=== PATIENT | female | born 1945 | race Two or more races ===

== ENCOUNTER 2020-05-24 12:55 | Outpatient (REF) | payer MEDICARE, SELFPAY | END 2020-05-24 12:56 | disposition home or self-care (01) | LOC: HO.LAB 12:55 | PROVIDERS: PCP Internal Medicine; Visit Provider Internal Medicine | DX: Z11.59 Encounter for screening for other viral diseases (principal) | CPT/HCPCS: 36415; 87635 ==

== ENCOUNTER 2020-06-14 15:06 | Outpatient (REF) | payer MEDICARE, SELFPAY | END 2020-06-14 15:07 | disposition home or self-care (01) | LOC: HO.LAB 15:06 | PROVIDERS: PCP Internal Medicine; Visit Provider Internal Medicine | DX: Z20.828 Contact with and (suspected) exposure to other viral communicable diseases (principal) | CPT/HCPCS: 87635 ==

== ENCOUNTER 2020-09-18 10:14 | Outpatient (REF) | payer MEDICARE, SELFPAY | END 2020-09-18 10:15 | disposition home or self-care (01) | LOC: HO.LAB 10:14 | PROVIDERS: PCP Internal Medicine; Visit Provider Internal Medicine | DX: Z20.822 Contact with and (suspected) exposure to COVID-19 (principal) | CPT/HCPCS: 36415; C9803; U0003 ==

== ENCOUNTER 2020-12-05 12:28 | Outpatient (REF) | payer MEDICARE, SELFPAY | END 2020-12-05 12:29 | disposition home or self-care (01) | LOC: HO.LAB 12:28 | PROVIDERS: Visit Provider Internal Medicine | DX: Z20.822 Contact with and (suspected) exposure to COVID-19 (principal) | CPT/HCPCS: C9803; U0003; U0005 ==

== ENCOUNTER 2021-02-04 10:49 | Outpatient (REF) | payer MEDICARE, SELFPAY | END 2021-02-04 10:50 | disposition home or self-care (01) | LOC: HO.LAB 10:49 | PROVIDERS: PCP Internal Medicine; Visit Provider Internal Medicine | DX: Z20.822 Contact with and (suspected) exposure to COVID-19 (principal) | CPT/HCPCS: C9803; U0003; U0005 ==

== ENCOUNTER 2021-11-28 16:41 | Emergency (ER) | payer OTHER, SELFPAY ==
--- NOTE | ~2021-11-28 | CT_ITS ---
EXAMINATION: CT ABDOMEN AND PELVIS WITHOUT CONTRAST CLINICAL INFORMATION: left sided AP . COMPARISON: 09/28/2019. TECHNIQUE: Multidetector volumetric imaging was performed from the superior aspect of the liver through the pubic symphysis without contrast per request. Sagittal and coronal reformatted images were obtained on the technologist workstation. This CT examination was performed using dose optimization techniques as appropriate, variously including the following: *Automated exposure control *Adjustment of mA and/or kV according to patient size (this includes techniques or standardized protocols for targeted exams where dose is matched to indication/reason for exam; i.e. extremities or head) *Use of iterative reconstruction technique DLP: 537 mGy-cm. FINDINGS: LUNG BASES: The visualized lung bases are unremarkable. LIVER, GALLBLADDER, BILIARY TREE: Mild fatty infiltration of the liver with the region of focal fatty sparing in segment 4 again noted. No focal hepatic lesion or biliary ductal dilatation is present. The gallbladder surgically absent. PANCREAS: Unremarkable. SPLEEN: Unremarkable. ADRENAL GLANDS: Unremarkable. KIDNEYS AND URETERS: The kidneys are normal in size, shape, and attenuation. No hydronephrosis, hydroureter, or calculi seen. No perinephric stranding. BLADDER: Decompressed GASTROINTESTINAL TRACT: The small and large bowel are unremarkable. The appendix is unremarkable. ABDOMINAL WALL: No significant hernia is appreciated. LYMPHOVASCULAR STRUCTURES: Vascular calcification within the aorta iliac system.. PELVIC VISCERA: Unremarkable. OSSEUS STRUCTURES: Unremarkable. CT/CT abdomen pelvis wo con IMPRESSION: No acute intra-abdominal process seen. Mild chronic appearing changes similar to the prior study..
[2021-11-28 16:59] VITALS: BP 139/71; PULSE 63; RESP 16; TEMP 35.9; O2SAT 94; BMI 27.4
--- NOTE | 2021-11-28 17:22 | ECG_ITS ---
Test Reason : AP/CP Blood Pressure : / mmHG Vent. Rate : 065 BPM Atrial Rate : 065 BPM P-R Int : 184 ms QRS Dur : 060 ms QT Int : 406 ms P-R-T Axes : 007 -15 041 degrees QTc Int : 422 ms Normal sinus rhythm Minimal voltage criteria for LVH, may be normal variant ( R in aVL ) Borderline ECG When compared with ECG of 03-OCT-2019 14:02, No significant change was found Referred By: Sara Kraft Electronically Signed By:LENCHO BERNARDO MD
--- NOTE | 2021-11-28 17:33 | ED.GENADULT ---
HPI - General Adult General Chief complaint: General Medical Stated complaint: cp/flank pain Time Seen by Provider: 11/28/21 17:17 Source: patient and EMS Mode of arrival: EMS Limitations: no limitations History of Present Illness HPI narrative: 76 yo DM, HTN, HLD, hypothyroidism here with complaints of left-sided abdominal pain for the last 2 days with vomiting yesterday. Pain radiates to the left side of the abdomen and back. There is no associated diarrhea or constipation. The patient's last BM was yesterday and was normal reportedly. No urinary symptoms, fevers or chills. Patient tells me the pain radiates up into the upper back. She denies any chest pain, shortness of breath, cough. Related Data Allergies Allergy/AdvReac Type Severity Reaction Status Date / Time hydromorphone [From DILAUDID] Allergy Unknown UNK Unverified 05/10/20 15:35 levofloxacin [From LEVAQUIN] Allergy Unknown RASH Unverified 05/10/20 15:35 ondansetron [From ZOFRAN] Allergy Unknown HIVES Unverified 05/10/20 15:35 Penicillins [PENICILLINS] Allergy Unknown RASH Unverified 05/10/20 15:35 tramadol [TRAMADOL] Allergy Unknown UNK Unverified 05/10/20 15:35 codeine [CODEINE] AdvReac Unknown N/V Unverified 05/10/20 15:35 morphine [MORPHINE] AdvReac Unknown N/V Unverified 05/10/20 15:35 Codein Allergy Unknown Uncoded 09/24/12 00:00 MORPHINE Allergy Unknown CONFUSION/MENTAL Uncoded 09/24/12 00:00 STATUS CHANGE PCN Allergy Unknown SWELLING,RA Uncoded 09/24/12 00:00 Review of Systems Review of Systems: Yes all other systems are reviewed and are negative Constitutional: Constitutional: Reports no additional constitutional complaints, Denies body ache(s), Denies chills, Denies fever(s), Denies headache(s) and Denies weakness Eyes: Eyes: Reports no additional eye complaints and Denies change in vision ENT: Reports system reviewed and no additional complaints, except as documented, Denies dizziness, Denies headache(s), Denies nasal congestion, Denies nasal discharge and Denies neck pain Cardiovascular: Cardiovascular: Reports no additional cardiovascular complaints, Denies chest pain, Denies leg edema and Denies dyspnea Respiratory: Respiratory: Reports no additional respiratory complaints, Denies cough and Denies dyspnea Gastrointestinal: Gastrointestinal: Reports no additional gastrointestinal complaints, Reports abdominal pain, Denies diarrhea, Reports nausea and Reports vomiting Genitourinary: Genitourinary: Reports no additional female genitourinary complaints and Denies urinary incontinence Musculoskeletal: Musculoskeletal: Reports no additional musculoskeletal complaints, Reports back pain, Denies arthralgias, Denies joint swelling, Denies neck pain, Denies numbness and Denies tingling Integumentary/Breasts: Skin/Breast: Reports system reviewed and no additional complaints, except as docu and Denies rash Neurologic: Reports system reviewed and no additional complaints, except as documented, Denies dizziness, Denies headache(s), Denies numbness, Denies tingling and Denies weakness PMFSH Past Medical History Attestation statement: The following information was validated with the patient. Source: old records reviewed and nursing notes reviewed Medical History Diabetes Diverticulosis Erythrocytosis HTN (hypertension) Hyperlipidemia Hypothyroid Insomnia Social History Social History Advance Directives: No Advance Directives Information Provided: Yes Physical Exam ED Vital Signs: Vital Signs - 24 hr 11/28/21 16:59 11/28/21 18:34 Temperature 96.7 F L Pulse Rate 63 75 Respiratory Rate 16 14 Blood Pressure 139/71 214/88 H Pulse Oximetry 94 98 BMI result Body Mass Index 27.4 Const General: cooperative, healthy appearing, comfortable and no acute distress Orientation/consciousness: patient oriented x3 Limitations: no limitations [facility] Head: Yes normal to inspection Ears: hearing grossly normal bilaterally General nose exam: Normal external nose present Face and sinus: Yes normal facial exam Mouth: Normal oral and palatal mucosa present Teeth and gingiva: dentition normal Throat: Yes posterior oropharynx normal, Yes tonsils normal and Yes uvula midline Eyes General: appearance normal, both eyes and all related structures Pupils: Equal, round and reactive pupils present Neck Neck: Yes normal visual inspection, Yes full ROM, Yes no lymphadenopathy and Yes no meningeal signs Chest Chest palpation & inspection: normal inspection of the chest Resp Effort & Inspection: normal respiratory effort Auscultation: clear to auscultation bilaterally Cardio Rate: regular rate Rhythm: regular rhythm Peripheral pulses: Peripheral pulses 2+ throughout GI Inspection: Yes normal to inspection Palpation (GI): Soft to palpation and Tenderness to palpation present (GI) (LLQ/LUQ TTP) Auscultation: normal bowel sounds General: Yes no CVA tenderness Back/Spine/Pelvis Back: no CVA tenderness Thoracic/Lumbar Spine: thoracic and lumbar spine normal to inspection Skin General skin exam: no rashes or lesions noted Neuro General: patient oriented x3, no meningeal signs and Unable to assess gait Cranial nerves: Yes CN's II-XII intact bilaterally, Yes Equal, round and reactive pupils present, Yes Bilaterally intact EOM present, Yes Nystagmus not present, Yes Normal facial strength present and Yes Midline tongue present Cognition (Neuro): normal cognition Gait exam (Neuro): Unable to assess gait Motor exam (neuro): 5/5 motor strength present throughout Sensory Exam: Normal double simultaneous stimulation for sensation Extrem General: Yes normal to inspection Course Course Course Narrative: 76-year-old female here with reports of left-sided abdominal pain with radiation to the left flank associated vomiting for the last 2 days. On exam patient has tenderness the left upper quadrant left lower quadrant with TTP,. No rebound or guarding. Will check labs, UA, CT. 2014-patient refused CT scan with IV contrast. Will obtain without. 2099-CT scan shows no acute finding. Labs and UA are unremarkable. Patient appears well. She is tolerating p.o.. Her pain is well controlled. Discussed findings with the patient. ?viral gastroenteritis. Patient tells me 1 of her grandchildren had similar symptoms home. Will discharge home with supportive care. Reviewed worrisome signs and symptoms of when to return to the emergency department. Comfortable discharge home. Medical Decision Making MDM Narrative Medical decision making narrative: diverticulitis Medical Records Medical records reviewed: Yes I reviewed the patient's medical records. Lab Data Lab results reviewed: Yes I reviewed the patient's lab results. Result diagrams: 11/28/21 18:33 11/28/21 18:33 Labs: Lab Results 11/28/21 11/28/21 11/28/21 Range/Units 18:33 18:33 18:33 WBC 7.0 (4.8-10.8) X10*3/uL RBC 5.01 (4.20-5.50) X10*6/uL Hgb 15.0 (12.0-16.0) g/dl Hct 43.8 (37.0-47.0) % MCV 87.4 (80.0-98.0) fL MCH 29.9 (27.0-33.0) pg MCHC 34.2 (31.0-35.0) g/dl RDW 13.1 (11.0-16.0) % Plt Count 229 (160-400) X10*3/uL MPV 11.8 (9.4-12.3) fL Immature Gran % (Auto) 0.6 H (0.0-0.4) % Neut % (Auto) 49.2 (45-73) % Lymph % (Auto) 37.2 (20-40) % Miller % (Auto) 10.1 (2-11) % Eos % (Auto) 2.3 (0-4) % Baso % (Auto) 0.6 (0-2) % Lymph # (Auto) 2.6 (1.2-4.9) X10*3/uL Miller # (Auto) 0.7 (0.1-1.2) X10*3/uL Eos # (Auto) 0.2 (0.0-0.4) X10*3/uL Baso # (Auto) 0.0 (0.0-0.2) X10*3/uL Abs Immat Gran (auto) 0.04 H (0.00-0.03) X10*3/uL Absolute Neuts (auto) 3.5 (2.0-8.3) x10*3/uL Absolute Nucleated RBC 0.000 (0.0-0.012) X10*3/uL Nucleated RBC % (auto) 0.0 (0.0-0.2) /100WBC Sodium 139 (135-145) mmol/L Potassium 3.9 (3.3-5.1) mmol/L Chloride 103 (96-108) mmol/L Carbon Dioxide 25 (22-29) mmol/L Anion Gap 15 (12-20) BUN 22 H (9-16) mg/dL Creatinine 1.07 (0.5-1.4) mg/dL Estim Creat Clear Calc 41.1 Estimated GFR 50 Random Glucose 144 H (60-115) mg/dL Calcium 9.5 (8.4-10.2) mg/dL Magnesium 1.8 (1.6-2.6) mg/dL Total Bilirubin 0.4 (0.0-1.0) mg/dL Direct Bilirubin 0.2 (0.0-0.5) mg/dL AST 41 H (5-31) U/L ALT 50 H (0-31) U/L Alkaline Phosphatase 56 (39-117) U/L Troponin I High Sens < 3.5 (<3.5-17.0) ng/L Total Protein 7.2 (6.5-8.0) g/dL Albumin 4.0 (3.5-5.0) g/dL Lipase 48 (8-78) U/L Urine Color Urine Appearance Urine pH (5.0-8.0) Ur Specific [place] (1.005-1.025) Urine Protein (NEG-TRACE) MG/DL Urine Glucose (UA) (NEG) MG/DL Urine Ketones (NEG) MG/DL Urine Blood (NEG) Urine Nitrite (NEG) Ur Leukocyte Esterase (NEG) COVID-19 (ZHANG) (Negative) COVID-19 Clin Com Influenza Type A (PÉREZ) (Negative) Influenza Type B (PÉREZ) (Negative) Influenza A & B Note 11/28/21 11/28/21 11/28/21 Range/Units 18:33 18:33 20:48 WBC (4.8-10.8) X10*3/uL RBC (4.20-5.50) X10*6/uL Hgb (12.0-16.0) g/dl Hct (37.0-47.0) % MCV (80.0-98.0) fL MCH (27.0-33.0) pg MCHC (31.0-35.0) g/dl RDW (11.0-16.0) % Plt Count (160-400) X10*3/uL MPV (9.4-12.3) fL Immature Gran % (Auto) (0.0-0.4) % Neut % (Auto) (45-73) % Lymph % (Auto) (20-40) % Miller % (Auto) (2-11) % Eos % (Auto) (0-4) % Baso % (Auto) (0-2) % Lymph # (Auto) (1.2-4.9) X10*3/uL Miller # (Auto) (0.1-1.2) X10*3/uL Eos # (Auto) (0.0-0.4) X10*3/uL Baso # (Auto) (0.0-0.2) X10*3/uL Abs Immat Gran (auto) (0.00-0.03) X10*3/uL Absolute Neuts (auto) (2.0-8.3) x10*3/uL Absolute Nucleated RBC (0.0-0.012) X10*3/uL Nucleated RBC % (auto) (0.0-0.2) /100WBC Sodium (135-145) mmol/L Potassium (3.3-5.1) mmol/L Chloride (96-108) mmol/L Carbon Dioxide (22-29) mmol/L Anion Gap (12-20) BUN (9-16) mg/dL Creatinine (0.5-1.4) mg/dL Estim Creat Clear Calc Estimated GFR Random Glucose (60-115) mg/dL Calcium (8.4-10.2) mg/dL Magnesium (1.6-2.6) mg/dL Total Bilirubin (0.0-1.0) mg/dL Direct Bilirubin (0.0-0.5) mg/dL AST (5-31) U/L ALT (0-31) U/L Alkaline Phosphatase (39-117) U/L Troponin I High Sens (<3.5-17.0) ng/L Total Protein (6.5-8.0) g/dL Albumin (3.5-5.0) g/dL Lipase (8-78) U/L Urine Color YELLOW Urine Appearance HAZY Urine pH 5.5 (5.0-8.0) Ur Specific [place] >= 1.030 H (1.005-1.025) Urine Protein 1+ H (NEG-TRACE) MG/DL Urine Glucose (UA) NEG (NEG) MG/DL Urine Ketones 5 (NEG) MG/DL Urine Blood NEG (NEG) Urine Nitrite NEG (NEG) Ur Leukocyte Esterase 2+ H (NEG) COVID-19 (ZHANG) Negative (Negative) COVID-19 Clin Com See Note Influenza Type A (PÉREZ) Negative (Negative) Influenza Type B (PÉREZ) Negative (Negative) Influenza A & B Note See Note Imaging Data CT scan - abdomen: Attestation: I personally reviewed and interpreted this imaging study as follows: Radiologist's impression: FINDINGS: LUNG BASES: The visualized lung bases are unremarkable. LIVER, GALLBLADDER, BILIARY TREE: Mild fatty infiltration of the liver with the region of focal fatty sparing in segment 4 again noted. No focal hepatic lesion or biliary ductal dilatation is present.? The gallbladder surgically absent. PANCREAS: Unremarkable. SPLEEN: Unremarkable. ADRENAL GLANDS: Unremarkable. KIDNEYS AND URETERS: The kidneys are normal in size, shape, and attenuation. No hydronephrosis, hydroureter, or calculi seen. No perinephric stranding. BLADDER: Decompressed GASTROINTESTINAL TRACT: The small and large bowel are unremarkable. The appendix is unremarkable. ABDOMINAL WALL: No significant hernia is appreciated. LYMPHOVASCULAR STRUCTURES: Vascular calcification within the aorta iliac system.. PELVIC VISCERA: Unremarkable. OSSEUS STRUCTURES: Unremarkable. CT/CT abdomen pelvis wo con IMPRESSION: No acute intra-abdominal process seen. Mild chronic appearing changes similar to the prior study.. ? Discharge Plan Discharge Clinical Impression: Gastroenteritis Patient Disposition: Home, Self-Care Instructions: Gastroenteritis (DC) Additional Instructions: Start with clear liquids and advance her diet as tolerated Your lab work, urine testing, CT scan are normal. Your testing for flu and COVID are negative You are allergic to the nausea medication we talked about Referrals: Davonte Reid III, MD [Primary Care Provider] -
[2021-11-28 18:34] VITALS: BP 214/88; PULSE 75; RESP 14; O2SAT 98
[2021-11-28 18:41] LABS: MANUAL DIFF FLAG NO
[2021-11-28 18:48] LABS: Basophils Percent Auto 0.6 % (0-2); Eosinophils Absolute Auto 0.2 X10*3/uL (0.0-0.4); Eosinophils Percent Auto 2.3 % (0-4); Hematocrit 43.8 % (37.0-47.0); Imm Gran Abs Auto 0.04 X10*3/uL (0.00-0.03); Imm Gran Pct Auto 0.6 % (0.0-0.4); Lymphocytes Absolute Auto 2.6 X10*3/uL (1.2-4.9); Lymphocytes Percent Auto 37.2 % (20-40); Mean Corpuscular HGB Conc 34.2 g/dl (31.0-35.0); Mean Corpuscular Hemoglobin 29.9 pg (27.0-33.0); Mean Corpuscular Volume 87.4 fL (80.0-98.0); Mean Platelet Volume 11.8 fL (9.4-12.3); Monocytes Absolute Auto 0.7 X10*3/uL (0.1-1.2); Monocytes Percent Auto 10.1 % (2-11); Neutrophils Absolute Auto 3.5 x10*3/uL (2.0-8.3); Neutrophils Percent Auto 49.2 % (45-73); Platelet Count 229 X10*3/uL (160-400); Red Blood Count 5.01 X10*6/uL (4.20-5.50); Red Cell Distribution Width 13.1 % (11.0-16.0)
[2021-11-28 18:57] LABS: Alanine Aminotransferase 50 U/L (0-31); Alkaline Phosphatase 56 U/L (39-117); Anion Gap 15 (12-20); Aspartate Amino Transferase 41 U/L (5-31); Bilirubin Direct 0.2 mg/dL (0.0-0.5); Bilirubin Total 0.4 mg/dL (0.0-1.0); Blood Urea Nitrogen 22 mg/dL (9-16); Calcium 9.5 mg/dL (8.4-10.2); Carbon Dioxide 25 mmol/L (22-29); Chloride 103 mmol/L (96-108); Creatinine Clr Calc Pharmacy 41.1; Estimated Glomerular Filt Rate 50; Glucose Random 144 mg/dL (60-115); Lipase 48 U/L (8-78); Magnesium 1.8 mg/dL (1.6-2.6); Potassium 3.9 mmol/L (3.3-5.1); Sodium 139 mmol/L (135-145); Total Protein 7.2 g/dL (6.5-8.0)
[2021-11-28 18:59] LABS: COVID-19 Test Negative (Negative); IDNOW Serial# 16C4AD1C
[2021-11-28 19:00] LABS: Influenza A Negative (Negative); Influenza B2 Negative (Negative)
[2021-11-28 19:03] LABS: Troponin-I High Sensitivity < 3.5 ng/L (<3.5-17.0)
[2021-11-28 20:54] LABS: Appearance Urine HAZY; Color Urine YELLOW; Glucose Urine UA NEG (NEG); Leukocyte Esterase Urine 2+ (NEG); Nitrite Urine NEG (NEG); PH 5.5 (5.0-8.0); Specific Gravity - Urine >= 1.030 (1.005-1.025); UACC Culture Trigger YES; Urine Blood NEG (NEG); Urine Ketones 5 MG/DL (NEG); Urine Protein 1+ MG/DL (NEG-TRACE)
[2021-11-28 21:27] LABS: Bacteria Urine 2+ /LPF; RBC Urine 0 /HPF (0); Squamous Epithelial Cell Urine 1+ /LPF
== END 2021-11-28 21:35 | disposition home or self-care (01) ==
PROVIDERS: Nurse Practitioner Family; Emergency Provider Emergency Medicine Emergency Medical Services; PCP Internal Medicine
DX: K52.9 Noninfective gastroenteritis and colitis, unspecified (principal); Z20.822 Contact with and (suspected) exposure to COVID-19; R10.9 Unspecified abdominal pain; I10 Essential (primary) hypertension; E78.5 Hyperlipidemia, unspecified
CPT/HCPCS: 36415; 74176; 80048; 80076; 81001; 83690; 83735; 84484; 85025; 87086; 87502; 87635; 93005; 99284

== ENCOUNTER 2022-02-23 09:19 | Emergency (ER) | payer OTHER, SELFPAY ==
--- NOTE | ~2022-02-23 | XR_ITS ---
EXAMINATION: XR FINGER, RIGHT CLINICAL INFORMATION: Third digit swelling and redness. COMPARISON: None TECHNIQUE: 3 views of the right hand third digit. FINDINGS: There is no acute fracture or dislocation. The joint spaces are unremarkable. The carpal bones are normally aligned. The distal radius and ulna are intact. Mild soft tissue swelling is seen. No radiopaque foreign body. XR/XR finger RT min 2V IMPRESSION: Mild soft tissue swelling without acute underlying osseous abnormality.
[2022-02-23 10:54] VITALS: BP 145/67; PULSE 52; RESP 18; TEMP 36.6; O2SAT 97; BMI 27.4
--- NOTE | 2022-02-23 14:00 | ED.EXTPRO ---
HPI - Extremity Problem General Chief complaint: Extremity Problem Stated complaint: Infected finger/diabetic Time Seen by Provider: 02/23/22 14:00 History of Present Illness HPI Narrative: Patient complains of right middle finger tip redness swelling and pain for 3 or 4 days, no injury, no fever no chills Related Data Previous Rx's Medication Instructions Recorded acetaminophen 500 mg tablet 1,000 mg PO QID PRN pain #30 tabs 02/23/22 doxycycline hyclate 100 mg capsule 100 mg PO BID 7 days #14 caps 02/23/22 Allergies Allergy/AdvReac Type Severity Reaction Status Date / Time hydromorphone [From DILAUDID] Allergy Unknown UNK Verified 02/23/22 10:53 levofloxacin [From LEVAQUIN] Allergy Unknown RASH Verified 02/23/22 10:53 ondansetron [From ZOFRAN] Allergy Unknown HIVES Verified 02/23/22 10:53 Penicillins [PENICILLINS] Allergy Unknown RASH Verified 02/23/22 10:53 tramadol [TRAMADOL] Allergy Unknown UNK Verified 02/23/22 10:53 codeine [CODEINE] AdvReac Unknown N/V Verified 02/23/22 10:53 morphine [MORPHINE] AdvReac Unknown N/V Verified 02/23/22 10:53 Codein Allergy Unknown Unknown Uncoded 02/23/22 10:53 MORPHINE Allergy Unknown CONFUSION/MENTAL Uncoded 09/24/12 00:00 STATUS CHANGE PCN Allergy Unknown SWELLING,RA Uncoded 09/24/12 00:00 Review of Systems Review of Systems: Positive right finger tip pain swelling and redness Negatives no fever no chills no dizziness no numbness weakness or tingling no headache no neck pain no shortness of breath Yes all other systems are reviewed and are negative [facility] Past Medical History Source: nursing notes reviewed Medical History Diabetes Diverticulosis Erythrocytosis HTN (hypertension) Hyperlipidemia Hypothyroid Insomnia Social History Social History Advance Directives: Yes Advance Directives Information Provided: No Advance Directives on File: No Physical Exam Vital Signs: Vital Signs: Last Vital Signs Temp 97.9 F 02/23/22 10:54 Pulse 52 02/23/22 10:54 Resp 18 02/23/22 10:54 BP 145/67 H 02/23/22 10:54 Pulse Ox 97 02/23/22 10:54 O2 Del Method 02/23/22 10:54 BMI result Body Mass Index 27.4 General appearance no distress Head is normocephalic atraumatic Neck is supple Respiratory no distress Extremities full range of motion x4 Right middle finger there is a paronychia 0 with redness swelling and tenderness around the nail bed on the ulnar side of the right middle finger nail bed, there is no other redness or swelling tendon function is full and intact, full range of motion in all joints of the finger, neurovascular intact Other extremities normal Course Course Course Narrative: Procedure note for right 3rd finger paronychia fingers cleansed with Betadine 5 cc of lidocaine is used for a digital block of the right 3rd finger Small incision at the nail bed is lifted and probed with forceps with discharge of pus, small piece of packing is placed and dressing is applied Discharge Plan Discharge Clinical Impression: Paronychia of right middle finger Patient Disposition: Home, Self-Care Additional Instructions: Return in 2 days for recheck Return any time for spreading redness worse pain and swelling fever any worse condition or any concerns Use doxycycline antibiotic with food Prescriptions: New acetaminophen 500 mg tablet 1,000 mg PO QID PRN (Reason: pain) Qty: 30 0RF doxycycline hyclate 100 mg capsule 100 mg PO BID 7 Days Qty: 14 0RF
[2022-02-23] MEDS: Lidocaine HCl 1 % MPF 5 ML VIAL SUBCUT ×2 (14:08)
== END 2022-02-23 15:25 | disposition home or self-care (01) ==
PROVIDERS: Emergency Provider Emergency Medicine Emergency Medical Services; PCP Internal Medicine
DX: L03.011 Cellulitis of right finger (principal); Z79.899 Other long term (current) drug therapy
CPT/HCPCS: 10060; 73140; 87071; 87077; 87185; 87205; 99283; 99284

== ENCOUNTER 2022-03-18 23:04 | Emergency (ER) | payer OTHER, SELFPAY ==
[2022-03-19 00:44] VITALS: BP 156/66; PULSE 60; RESP 18; TEMP 36; O2SAT 98; BMI 26.5
== END 2022-03-19 03:51 | disposition left against medical advice (07) ==
PROVIDERS: Emergency Provider Emergency Medicine
DX: U07.1 COVID-19 (principal); R11.10 Vomiting, unspecified; R42 Dizziness and giddiness; E11.9 Type 2 diabetes mellitus without complications; I10 Essential (primary) hypertension; E78.5 Hyperlipidemia, unspecified
CPT/HCPCS: 99281

== ENCOUNTER 2022-09-15 21:28 | Emergency (ER) | payer OTHER, SELFPAY ==
--- NOTE | ~2022-09-15 | CT_ITS ---
EXAMINATION: CT CERVICAL SPINE WITHOUT CONTRAST CLINICAL INFORMATION: Left cervical radiculopathy, atraumatic COMPARISON: Cervical spine CT 09/25/2019 TECHNIQUE: Contiguous helical images of the cervical spine were obtained without IV contrast. Multiplanar reconstructions were performed. This CT examination was performed using dose optimization techniques as appropriate, variously including the following: *Automated exposure control *Adjustment of mA and/or kV according to patient size (this includes techniques or standardized protocols for targeted exams where dose is matched to indication/reason for exam; i.e. extremities or head) *Use of iterative reconstruction technique DLP: 395 mGy-cm FINDINGS: Alignment:Straightening of the normal cervical lordosis. No subluxation. Vertebra:No acute fracture. No prevertebral soft tissue swelling. Degenerative disc disease:Mild multilevel cervical spondylosis most prominent at C4-C5 and C5-C6 with minimal disc height loss, endplate sclerosis and proliferative change. Overall, appearance is similar to prior. Mild bilateral lower cervical uncovertebral spurring at C6. Small posterior disc osteophyte complexes at C3-C4, C4-C5, C5-C6, and C6-C7 with minimal/mild central spinal canal narrowing. 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 Mild left neural foraminal narrowing at C3-C4. Mild bilateral neural foraminal narrowing at C4-C5 left worse than right. Moderate bilateral neural foraminal narrowing at C5-C6. Other findings:No cervical lymphadenopathy. Visualized major salivary glands and thyroid gland are unremarkable. Visualized base of the brain is grossly unremarkable. Visualized lung apices are clear. CT/CT cervical spine wo IV con IMPRESSION: 1. No subluxation or acute cervical spine fracture. 2. Mild multilevel cervical spondylosis most prominent at C4-C5 and C5-C6, similar to prior. 3. Small posterior disc osteophyte complexes at C3-C4, C4-C5, C5-C6, and C6-C7 with minimal/mild central spinal canal narrowing. 4. Neural foraminal narrowing bilaterally at C3-C4, C4-C5, and C5-C6, as above.
[2022-09-15 21:33] VITALS: BP 171/71; PULSE 67; RESP 18; TEMP 36.6; O2SAT 98; BMI 27.4
--- NOTE | 2022-09-15 21:41 | ECG_ITS ---
Test Reason : CX PAIN Blood Pressure : / mmHG Vent. Rate : 056 BPM Atrial Rate : 056 BPM P-R Int : 194 ms QRS Dur : 072 ms QT Int : 428 ms P-R-T Axes : 048 005 077 degrees QTc Int : 413 ms Sinus bradycardia Cannot rule out Anterior infarct , age undetermined ; could also be related to lead placement and body habitus Abnormal ECG When compared with ECG of 28-NOV-2021 18:13, No significant change was found Referred By: Generic ED Physician Electronically Signed By:ARMIN CASH
[2022-09-15 21:56] VITALS: BP 176/76; PULSE 57; RESP 19; TEMP 36.6; O2SAT 99
[2022-09-15 22:02] LABS: MANUAL DIFF FLAG NO
[2022-09-15 22:13] LABS: Basophils Absolute Auto 0.1 X10*3/uL (0.0-0.2); Basophils Percent Auto 0.6 % (0-2); Eosinophils Absolute Auto 0.4 X10*3/uL (0.0-0.4); Eosinophils Percent Auto 3.9 % (0-4); Hematocrit 42.3 % (37.0-47.0); Hemoglobin 14.6 g/dl (12.0-16.0); Imm Gran Abs Auto 0.04 X10*3/uL (0.00-0.03); Imm Gran Pct Auto 0.4 % (0.0-0.4); Lymphocytes Absolute Auto 3.1 X10*3/uL (1.2-4.9); Lymphocytes Percent Auto 34.8 % (20-40); Mean Corpuscular HGB Conc 34.5 g/dl (31.0-35.0); Mean Corpuscular Hemoglobin 28.8 pg (27.0-33.0); Mean Corpuscular Volume 83.4 fL (80.0-98.0); Mean Platelet Volume 11.4 fL (9.4-12.3); Monocytes Absolute Auto 0.7 X10*3/uL (0.1-1.2); Monocytes Percent Auto 8.3 % (2-11); Neutrophils Absolute Auto 4.7 x10*3/uL (2.0-8.3); Platelet Count 244 X10*3/uL (160-400); Red Blood Count 5.07 X10*6/uL (4.20-5.50); Red Cell Distribution Width 12.6 % (11.0-16.0); White Blood Count 8.9 X10*3/uL (4.8-10.8)
[2022-09-15 22:24] LABS: Anion Gap 20 (12-20); Blood Urea Nitrogen 24 mg/dL (9-16); Calcium 9.6 mg/dL (8.4-10.2); Carbon Dioxide 23 mmol/L (22-29); Chloride 103 mmol/L (96-108); Creatinine Clr Calc Pharmacy 24.1; Estimated Glomerular Filt Rate 28; Glucose Random 273 mg/dL (60-115); Potassium 4.1 mmol/L (3.3-5.1); Sodium 142 mmol/L (135-145)
--- NOTE | 2022-09-15 22:25 | ED_ITS ---
HPI - Chest Pain General Chief Complaint: Chest Pain Stated Complaint: chest pain/ left arm discomfort Time Seen by Provider: 09/15/22 22:03 Source: patient Mode of arrival: ambulatory Limitations: no limitations History of Present Illness HPI narrative: Pain history of diabetes, hypertension comes here for midsternal chest pain and neck pain radiating to the left arm for last 2 days patient does have neck problems for a long time but got worse in last 2 days has not seen any specialist not had any MRI no hand weakness or leg weakness mid chest with mild dull pain no diaphoresis no nausea no vomiting no shortness of breath , does have a history of arthritis. Pain in the left arm get worse with neck movem ents Related Data Previous Rx's Medication Instructions Recorded acetaminophen 500 mg tablet 1,000 mg PO QID PRN pain #30 tabs 02/23/22 doxycycline hyclate 100 mg capsule 100 mg PO BID 7 days #14 caps 02/23/22 Allergies Allergy/AdvReac Type Severity Reaction Status Date / Time hydromorphone [From DILAUDID] Allergy Unknown UNK Verified 09/15/22 21:37 levofloxacin [From LEVAQUIN] Allergy Unknown RASH Verified 09/15/22 21:37 ondansetron [From ZOFRAN] Allergy Unknown HIVES Verified 09/15/22 21:37 Penicillins [PENICILLINS] Allergy Unknown RASH Verified 09/15/22 21:37 tramadol [TRAMADOL] Allergy Unknown UNK Verified 09/15/22 21:37 codeine [CODEINE] AdvReac Unknown N/V Verified 09/15/22 21:37 morphine [MORPHINE] AdvReac Unknown N/V Verified 09/15/22 21:37 Codein Allergy Unknown Unknown Uncoded 09/15/22 21:37 MORPHINE Allergy Unknown CONFUSION/MENTAL Uncoded 09/15/22 21:37 STATUS CHANGE PCN Allergy Unknown SWELLING,RA Uncoded 09/15/22 21:37 Review of Systems Review of Systems: Yes all other systems are reviewed and are negative [facility] Past Medical History Medical History Diabetes Diverticulosis Erythrocytosis HTN (hypertension) Hyperlipidemia Hypothyroid Insomnia Social History Social History Advance Directives: No Advance Directives Information Provided: No Physical Exam Vital Signs: Vital Signs: Last Vital Signs Temp 98.4 F 09/16/22 00:08 Pulse 54 09/16/22 00:08 Resp 23 H 09/16/22 00:08 BP 161/74 H 09/16/22 00:08 Pulse Ox 98 09/16/22 00:08 O2 Del Method 09/16/22 00:08 BMI result Body Mass Index 27.4 Appearance: Alert. Oriented X3. No acute distress. Eyes: PERRLA, No Nystagmus ENT: Pharynx normal. Oral Mucosa moist Neck: Normal inspection. Neck supple. Mid cervical tenderness increase pain in left arm with movements of the neck to the left side CVS: Normal heart rate and rhythm. Pulses normal. Respiratory: No respiratory distress. Equal air entry bilateral, no wheezing/rales/rhonchi Abdomen: Soft and nontender. Bowel sounds are present, no mass palpable, no CVA tenderness Skin: Skin warm and dry. Normal skin color. Normal skin turgor. Extremities: No lower extremity edema. No calf tenderness Neuro: Oriented X 3. No motor deficit. No sensory deficit.No cerebellar signs , cranial nerves II-XII intact hand vp delivery strength 5/5 Medications Administered Discontinued Medications Generic Name Dose Route Start Last Admin Trade Name Freq PRN Reason Stop Dose Admin Acetaminophen 650 mg 09/15/22 22:51 09/15/22 23:31 Acetaminophen 325 Mg Tablet PO 09/15/22 22:52 650 mg ONCE ONE Administration Medical Decision Making Medical Decision Making [facility] Narrative: Patient with cervical radiculopathy CT scan of the C-spine showing: CT/CT cervical spine wo IV con IMPRESSION: 1.? No subluxation or acute cervical spine fracture. 2.? Mild multilevel cervical spondylosis most prominent at C4-C5 and C5-C6, similar to prior. 3.? Small posterior disc osteophyte complexes at C3-C4, C4-C5, C5-C6, and C6-C7 with minimal/mild central spinal canal narrowing. 4.? Neural foraminal narrowing bilaterally at C3-C4, C4-C5, and C5-C6, as above. Lab Data [facility] Lab Attestation statement: I reviewed the patient's lab results. 09/15/22 21:57 09/15/22 21:57 Labs: Lab Results 09/15/22 09/15/22 09/15/22 Range/Units 21:57 21:57 21:57 WBC 8.9 (4.8-10.8) X10*3/uL RBC 5.07 (4.20-5.50) X10*6/uL Hgb 14.6 (12.0-16.0) g/dl Hct 42.3 (37.0-47.0) % MCV 83.4 (80.0-98.0) fL MCH 28.8 (27.0-33.0) pg MCHC 34.5 (31.0-35.0) g/dl RDW 12.6 (11.0-16.0) % Plt Count 244 (160-400) X10*3/uL MPV 11.4 (9.4-12.3) fL Immature Gran % (Auto) 0.4 (0.0-0.4) % Neut % (Auto) 52.0 (45-73) % Lymph % (Auto) 34.8 (20-40) % [place] % (Auto) 8.3 (2-11) % Eos % (Auto) 3.9 (0-4) % Baso % (Auto) 0.6 (0-2) % Lymph # (Auto) 3.1 (1.2-4.9) X10*3/uL [place] # (Auto) 0.7 (0.1-1.2) X10*3/uL Eos # (Auto) 0.4 (0.0-0.4) X10*3/uL Baso # (Auto) 0.1 (0.0-0.2) X10*3/uL Abs Immat Gran (auto) 0.04 H (0.00-0.03) X10*3/uL Absolute Neuts (auto) 4.7 (2.0-8.3) x10*3/uL Absolute Nucleated RBC 0.000 (0.0-0.012) X10*3/uL Nucleated RBC % (auto) 0.0 (0.0-0.2) /100WBC Sodium 142 (135-145) mmol/L Potassium 4.1 (3.3-5.1) mmol/L Chloride 103 (96-108) mmol/L Carbon Dioxide 23 (22-29) mmol/L Anion Gap 20 (12-20) BUN 24 H (9-16) mg/dL Creatinine 1.79 H (0.5-1.4) mg/dL Estim Creat Clear Calc 24.1 Estimated GFR 28 Random Glucose 273 H (60-115) mg/dL Calcium 9.6 (8.4-10.2) mg/dL Troponin I High Sens < 3.5 (<3.5-17.0) ng/L 09/16/22 Range/Units 00:07 WBC (4.8-10.8) X10*3/uL RBC (4.20-5.50) X10*6/uL Hgb (12.0-16.0) g/dl Hct (37.0-47.0) % MCV (80.0-98.0) fL MCH (27.0-33.0) pg MCHC (31.0-35.0) g/dl RDW (11.0-16.0) % Plt Count (160-400) X10*3/uL MPV (9.4-12.3) fL Immature Gran % (Auto) (0.0-0.4) % Neut % (Auto) (45-73) % Lymph % (Auto) (20-40) % [place] % (Auto) (2-11) % Eos % (Auto) (0-4) % Baso % (Auto) (0-2) % Lymph # (Auto) (1.2-4.9) X10*3/uL [place] # (Auto) (0.1-1.2) X10*3/uL Eos # (Auto) (0.0-0.4) X10*3/uL Baso # (Auto) (0.0-0.2) X10*3/uL Abs Immat Gran (auto) (0.00-0.03) X10*3/uL Absolute Neuts (auto) (2.0-8.3) x10*3/uL Absolute Nucleated RBC (0.0-0.012) X10*3/uL Nucleated RBC % (auto) (0.0-0.2) /100WBC Sodium (135-145) mmol/L Potassium (3.3-5.1) mmol/L Chloride (96-108) mmol/L Carbon Dioxide (22-29) mmol/L Anion Gap (12-20) BUN (9-16) mg/dL Creatinine (0.5-1.4) mg/dL Estim Creat Clear Calc Estimated GFR Random Glucose (60-115) mg/dL Calcium (8.4-10.2) mg/dL Troponin I High Sens < 3.5 (<3.5-17.0) ng/L Independent Interpretation I performed an independent interpretation of an: EKG Interpretation: Sinus bradycardia heart rate 56 beats per minute normal intervals normal axis poor progression of R-waves no acute ischemia no acute change from the previous EKG Discharge Plan Discharge Clinical Impression: Chest pain, Cervical radiculopathy Patient Disposition: Home, Self-Care Instructions: Chest Pain (ED), Cervical Radiculopathy (ED) Additional Instructions: Tylenol for pain Follow-up with your PCP for further evaluation for chronic neck pain including MRI Prescriptions: No Action acetaminophen 500 mg tablet 1,000 mg PO QID PRN (Reason: pain) Qty: 30 0RF doxycycline hyclate 100 mg capsule 100 mg PO BID 7 Days Qty: 14 0RF Interventions: ED Discharge Assessment Last Done: 09/16/22 01:14 Discharge Date/Time: 09/16/22 01:15
--- NOTE | 2022-09-15 22:25 | PC.NURSE ---
Patient is alert and oriented x3. Patient is able to make her needs known. Patient c/o achy, sharp left chest pain radiating to left arm and neck. Patient reports onset of pain 2 days ago. Patient denies nausea, vomiting, non diaphoretic, skin color appropriate for ethnicity. EKG obtained, labs drawn per MD orders, 22 G IV line established in L hand. Patient placed on vehicle monitor technician, sinus monet. O2 Sat 96% RA, no dyspnea noted. Patient oriented to ED room, call merritt within reach. Patient's spouse at bedside.
[2022-09-15 22:26] LABS: Troponin-I High Sensitivity < 3.5 ng/L (<3.5-17.0)
[2022-09-15] MEDS: Acetaminophen 325 MG TABLET 650 MG PO (23:31)
[2022-09-16 00:08] VITALS: BP 161/74; PULSE 54; RESP 23; TEMP 36.9; O2SAT 98
[2022-09-16 00:44] LABS: Troponin-I High Sensitivity < 3.5 ng/L (<3.5-17.0)
== END 2022-09-16 01:15 | disposition home or self-care (01) ==
PROVIDERS: Emergency Provider Internal Medicine; PCP Internal Medicine
DX: R07.9 Chest pain, unspecified (principal); M54.12 Radiculopathy, cervical region; E11.9 Type 2 diabetes mellitus without complications; I10 Essential (primary) hypertension; E78.5 Hyperlipidemia, unspecified
CPT/HCPCS: 36415; 72125; 80048; 84484; 85025; 93005; 99284; 99285

== ENCOUNTER 2023-03-24 10:19 | Emergency (ER) | payer OTHER, SELFPAY ==
--- NOTE | ~2023-03-24 | CT_ITS ---
EXAMINATION: CT ABDOMEN AND PELVIS WITHOUT CONTRAST CLINICAL INFORMATION: Lower abdominal pain radiating to the back. COMPARISON: CT scan of the abdomen and pelvis dated 11/28/2021. TECHNIQUE: Multidetector volumetric imaging was performed from the superior aspect of the liver through the pubic symphysis. Sagittal and coronal reformatted images were obtained on the technologist's workstation. This CT examination was performed using dose optimization techniques as appropriate, variously including the following: *Automated exposure control *Adjustment of mA and/or kV according to patient size (this includes techniques or standardized protocols for targeted exams where dose is matched to indication/reason for exam; i.e. extremities or head) *Use of iterative reconstruction technique DLP: 537 mGy-cm FINDINGS: LUNG BASES: The visualized lung bases are unremarkable. LIVER, GALLBLADDER, AND BILIARY TREE: No hepatic abnormality. Status post cholecystectomy. PANCREAS: Mild to moderate fatty atrophy, most pronounced at the head without surrounding abnormality. The pancreatic duct is not significantly dilated. SPLEEN: Unremarkable. ADRENAL GLANDS: Unremarkable. KIDNEYS AND URETERS: The kidneys are normal in size, shape, and attenuation. No hydronephrosis, hydroureter, or calculi seen. No perinephric stranding. BLADDER: Unremarkable. GASTROINTESTINAL TRACT: The stomach, small bowel and appendix are unremarkable. The colon shows scattered mild diverticulosis, more pronounced distally without surrounding abnormality. The rectum is unremarkable. ABDOMINAL WALL: No significant hernia is appreciated. LYMPH NODES: No lymphadenopathy. VASCULAR: Mild to moderate atherosclerosis without significant dilatation. PELVIC VISCERA: Unremarkable. OSSEOUS STRUCTURES: Unremarkable. CT/CT abdomen pelvis wo IV con IMPRESSION: 1. No acute intra-abdominal/pelvic abnormality to explain the patient's pain. 2. Mild colonic diverticulosis without evidence for acute diverticulitis.
[2023-03-24 10:36] VITALS: BP 169/79; PULSE 52; RESP 16; TEMP 35.6; O2SAT 99; BMI 29.1
[2023-03-24 10:59] LABS: MANUAL DIFF FLAG NO
[2023-03-24 11:03] LABS: Basophils Absolute Auto 0.1 X10*3/uL (0.0-0.2); Basophils Percent Auto 0.8 % (0-2); Eosinophils Absolute Auto 0.3 X10*3/uL (0.0-0.4); Eosinophils Percent Auto 3.6 % (0-4); Hematocrit 41.8 % (37.0-47.0); Hemoglobin 14.3 g/dl (12.0-16.0); Imm Gran Abs Auto 0.04 X10*3/uL (0.00-0.03); Imm Gran Pct Auto 0.6 % (0.0-0.4); Lymphocytes Absolute Auto 2.8 X10*3/uL (1.2-4.9); Lymphocytes Percent Auto 38.7 % (20-40); Mean Corpuscular HGB Conc 34.2 g/dl (31.0-35.0); Mean Corpuscular Hemoglobin 29.3 pg (27.0-33.0); Mean Corpuscular Volume 85.7 fL (80.0-98.0); Mean Platelet Volume 11.5 fL (9.4-12.3); Monocytes Absolute Auto 0.5 X10*3/uL (0.1-1.2); Monocytes Percent Auto 7.3 % (2-11); Neutrophils Absolute Auto 3.6 x10*3/uL (2.0-8.3); Platelet Count 218 X10*3/uL (160-400); Red Blood Count 4.88 X10*6/uL (4.20-5.50); Red Cell Distribution Width 13.1 % (11.0-16.0); White Blood Count 7.3 X10*3/uL (4.8-10.8)
[2023-03-24 11:05] LABS: Appearance Urine Clear; Color Urine Yellow; Glucose Urine UA Negative (Negative); Leukocyte Esterase Urine Moderate (2+) (Negative); Nitrite Urine Negative (Negative); PH 5.5 (5.0-9.0); UMIC TRIGGER UACC YES; Urine Blood Negative (Negative); Urine Ketones Negative (Negative); Urine Protein Negative (Neg-Trace)
[2023-03-24 11:11] LABS: Bacteria Urine None Seen (None Seen); Hyaline Casts Urine 0-2 /LPF (0-2); RBC Urine 0-2 /HPF (0-2); UACC Culture Trigger YES
[2023-03-24 11:12] LABS: Anion Gap 17 (12-20); Blood Urea Nitrogen 17 mg/dL (9-16); Calcium 9.5 mg/dL (8.4-10.2); Carbon Dioxide 18 mmol/L (22-29); Chloride 109 mmol/L (96-108); Estimated Glomerular Filt Rate 37; Glucose Random 194 mg/dL (60-115); Potassium 3.8 mmol/L (3.3-5.1); Sodium 140 mmol/L (135-145)
[2023-03-24] MEDS: Ketorolac Tromethamine 30 MG/ML VIAL IM (11:48)
[2023-03-24 13:58] VITALS: BP 197/82; PULSE 44; RESP 15; TEMP 36.6; O2SAT 99
--- NOTE | 2023-03-24 16:40 | ED_ITS ---
HPI - Abdominal Pain General Chief Complaint: Abdominal Pain Stated Complaint: Abd pain/back pain Time Seen by Provider: 03/24/23 11:13 Source: patient Mode of arrival: ambulatory Limitations: no limitations History of Present Illness HPI narrative: Patient presents with suprapubic pain radiating to left flank. Patient is 77-year-old female. She has had 3-4 days of lower abdominal pain and flank pain. Symptoms are moderate to severe in nature. There is no clear relieving or exacerbating features. She has urinary frequency, urgency but no dysuria, hematuria. She does have some hesitancy. Patient denies any fevers or chills. She denies any nausea vomiting. She denies a history of such symptoms in the past. Patient denies any vaginal bleeding or discharge. Patient describes her pain as burning and sharp in nature. Related Data Previous Rx's Medication Instructions Recorded acetaminophen 500 mg tablet 1,000 mg PO QID PRN pain #30 tabs 02/23/22 doxycycline hyclate 100 mg capsule 100 mg PO BID 7 days #14 caps 02/23/22 cephalexin 500 mg capsule 500 mg PO Q12H #28 caps 03/24/23 Allergies Allergy/AdvReac Type Severity Reaction Status Date / Time hydromorphone [From DILAUDID] Allergy Unknown UNK Verified 09/15/22 21:37 levofloxacin [From LEVAQUIN] Allergy Unknown RASH Verified 09/15/22 21:37 ondansetron [From ZOFRAN] Allergy Unknown HIVES Verified 09/15/22 21:37 Penicillins [PENICILLINS] Allergy Unknown RASH Verified 09/15/22 21:37 tramadol [TRAMADOL] Allergy Unknown UNK Verified 09/15/22 21:37 codeine [CODEINE] AdvReac Unknown N/V Verified 09/15/22 21:37 morphine [MORPHINE] AdvReac Unknown N/V Verified 09/15/22 21:37 Codein Allergy Unknown Unknown Uncoded 09/15/22 21:37 MORPHINE Allergy Unknown CONFUSION/MENTAL Uncoded 09/15/22 21:37 STATUS CHANGE PCN Allergy Unknown SWELLING,RA Uncoded 09/15/22 21:37 SH Review of Systems Review of Systems CONSTITUTIONAL: Denies weight loss, fever and chills. HEENT: Denies changes in vision and hearing. RESPIRATORY: Denies SOB and cough. CV: Denies palpitations no CP. GI: + abdominal pain,- nausea, vomiting and diarrhea. : Denies dysuria + urinary frequency. MSK: Denies myalgia and joint pain. SKIN: Denies rash and pruritus. NEUROLOGICAL: Denies headache and syncope. PSYCHIATRIC: Denies recent changes in mood. Denies anxiety and depression. All other ROS are negative unless in HPI PMFSH Past Medical History Medical History Diabetes Diverticulosis Erythrocytosis HTN (hypertension) Hyperlipidemia Hypothyroid Insomnia Social History Social History Advance Directives: Yes Advance Directives Information Provided: Yes Advance Directives on File: No Physical Exam ED Vital Signs: Vital Signs - 24 hr 03/24/23 10:36 03/24/23 13:58 Temperature 96.0 F L 97.8 F Pulse Rate 52 44 L Respiratory Rate 16 15 Blood Pressure 169/79 H 197/82 H Pulse Oximetry 99 99 Oxygen Delivery Method Room Air Room Air BMI result Body Mass Index 29.1 GEN: Well developed, no acute distress, alert, oriented HEENT: Normocephalic, atraumatic, normal external ears, nose appears normal, no oropharyngeal edema or exudates Eyes: Normal to appearance Neck: Supple, no lymphadenopathy Respiratory: Talks in complete sentences, no respiratory distress, clear to auscultation bilaterally Cardiovascular: Regular rate and rhythm, no murmurs rubs or gallops Abdomen: Soft, suprapubic tenderness, nondistended, no guarding, no rebound Back: No CVA tenderness Extremities: No clubbing cyanosis or edema Neurologic: No focal neurologic deficits, cranial nerves 2-12 intact, strength is 5/5 bilaterally Skin: No rash Course Course Course Narrative: The workup is complete. CT scan did not demonstrate any acute intra-abdominal process. She does have a moderate urinary tract infection. She does have back pain. While she may not have a kidney infection at this time, certainly appears to be an ascending UTI which is more complex ingested basic cystitis. Will treat with Keflex 500 mg twice a day for 2 weeks. She will return for any worsening or concerning symptoms. I recommended plenty of hydration. Patient will be discharged at this time. Medical Decision Making Medical Decision Making MDM Narrative: 77-year-old female presents with suprapubic pain, urinary frequency and back pain. Differential diagnosis includes kidney stone, pyelonephritis, diverticulitis, colitis, epiploic appendagitis, mesenteric adenitis. Plan CT scan the abdomen pelvis to rule out kidney stone is my highest differential diagnosis. Will check urinalysis to rule urinary tract infection. Suspect p atient does in fact have a UTI will treat with antibiotics. Will provide patient with a analgesics. Can provide her with an antiemetics if need be. Should any significant abnormal results occur, patient will warrant hospitalization. Differential Diagnosis Differential Diagnoses: The differential diagnosis associated with the presentat ion includes (See above) Admission/Observation Consideration of admission/observation: Escalation of care including admission/observation considered Lab Data MDM Lab Attestation statement: I reviewed the patient's lab results. 03/24/23 10:55 03/24/23 10:55 Labs: Lab Results 03/24/23 03/24/23 03/24/23 Range/Units 10:55 10:55 10:55 WBC 7.3 (4.8-10.8) X10*3/uL RBC 4.88 (4.20-5.50) X10*6/uL Hgb 14.3 (12.0-16.0) g/dl Hct 41.8 (37.0-47.0) % MCV 85.7 (80.0-98.0) fL MCH 29.3 (27.0-33.0) pg MCHC 34.2 (31.0-35.0) g/dl RDW 13.1 (11.0-16.0) % Plt Count 218 (160-400) X10*3/uL MPV 11.5 (9.4-12.3) fL Immature Gran % (Auto) 0.6 H (0.0-0.4) % Neut % (Auto) 49.0 (45-73) % Lymph % (Auto) 38.7 (20-40) % [place] % (Auto) 7.3 (2-11) % Eos % (Auto) 3.6 (0-4) % Baso % (Auto) 0.8 (0-2) % Lymph # (Auto) 2.8 (1.2-4.9) X10*3/uL [place] # (Auto) 0.5 (0.1-1.2) X10*3/uL Eos # (Auto) 0.3 (0.0-0.4) X10*3/uL Baso # (Auto) 0.1 (0.0-0.2) X10*3/uL Abs Immat Gran (auto) 0.04 H (0.00-0.03) X10*3/uL Absolute Neuts (auto) 3.6 (2.0-8.3) x10*3/uL Absolute Nucleated RBC 0.000 (0.0-0.012) X10*3/uL Nucleated RBC % (auto) 0.0 (0.0-0.2) /100WBC Sodium 140 (135-145) mmol/L Potassium 3.8 (3.3-5.1) mmol/L Chloride 109 H (96-108) mmol/L Carbon Dioxide 18 L (22-29) mmol/L Anion Gap 17 (12-20) BUN 17 H (9-16) mg/dL Creatinine 1.39 (0.5-1.4) mg/dL Estim Creat Clear Calc 32.0 Estimated GFR 37 Random Glucose 194 H (60-115) mg/dL Calcium 9.5 (8.4-10.2) mg/dL Urine Color Yellow Urine Appearance Clear Urine pH 5.5 (5.0-9.0) Ur Specific [place] 1.010 (1.005-1.025) Urine Protein Negative (Neg-Trace) mg/dL Urine Glucose (UA) Negative (Negative) mg/dL Urine Ketones Negative (Negative) mg/dL Urine Blood Negative (Negative) Urine Nitrite Negative (Negative) Ur Leukocyte Esterase Moderate (2+) H (Negative) Urine RBC 0-2 (0-2) /HPF Urine WBC 11-20 H (0-5) /HPF Ur Squamous Epith Cells 3-5 (0-2) /HPF Urine Bacteria None Seen (None Seen) Hyaline Casts 0-2 (0-2) /LPF Independent Interpretation I performed an independent interpretation of an: CT Scan (Abdomen pelvis: No acute disease process noted) Radiology Impression Discussion of test interpretation with radiology: I have reviewed the radiologist's reading. Radiologist Impression: CT/CT abdomen pelvis wo IV con IMPRESSION: 1.? No acute intra-abdominal/pelvic abnormality to explain the patient's pain. 2.? Mild colonic diverticulosis without evidence for acute diverticulitis. ? ? Dictated By: Jose Lee MD Signed By: <Electronically signed by Jose Lee MD in OV> 03/24/23 0768 Prescription Management I considered prescription management with: Pain Medication and Antibiotic Medications Administered Discontinued Medications Generic Name Dose Route Start Last Admin Trade Name Freq PRN Reason Stop Dose Admin Ketorolac Tromethamine 30 mg 03/24/23 11:42 03/24/23 11:48 Ketorolac Tromethamine 30 Mg/Ml Vial IM 03/24/23 11:43 30 mg ONCE ONE Administration Discharge Plan Discharge Clinical Impression: Acute pyelonephritis Patient Disposition: Home, Self-Care Instructions: Kidney Infection (ED), Urinary Tract Infection in Older Adults (ED) Prescriptions: New cephalexin 500 mg capsule 500 mg PO Q12H Qty: 28 0RF No Action acetaminophen 500 mg tablet 1,000 mg PO QID PRN (Reason: pain) Qty: 30 0RF doxycycline hyclate 100 mg capsule 100 mg PO BID 7 Days Qty: 14 0RF Referrals: Davonte Reid III, MD [Primary Care Provider] - 2 days
[2023-03-24] MEDS: cephALEXin 500 MG CAPSULE PO (17:05)
== END 2023-03-24 17:11 | disposition home or self-care (01) ==
PROVIDERS: Emergency Provider Emergency Medicine; PCP Internal Medicine
DX: N10 Acute pyelonephritis (principal); K57.30 Diverticulosis of large intestine without perforation or abscess without bleeding; E11.9 Type 2 diabetes mellitus without complications; I10 Essential (primary) hypertension; E78.5 Hyperlipidemia, unspecified; Z79.899 Other long term (current) drug therapy
CPT/HCPCS: 36415; 74176; 80048; 81001; 81003; 85025; 87086; 96372; 99284; J1885

== ENCOUNTER 2023-03-28 18:36 | Emergency (ER) | payer OTHER, SELFPAY ==
[2023-03-28 18:39] VITALS: BP 177/99; PULSE 75; RESP 18; TEMP 36; O2SAT 95; BMI 27.4
--- NOTE | 2023-03-28 18:43 | ED.ABDPAIN ---
HPI - Abdominal Pain General Chief Complaint: Abdominal Pain Stated Complaint: left side abd pain Time Seen by Provider: 03/28/23 22:51 Source: patient Mode of arrival: ambulatory Limitations: no limitations History of Present Illness HPI narrative: Patient was seen here on 03/24 for left lower back pain diagnosed by the MD as secondary to UTI CT scan of the abdomen was negative and urine showed only few WBCs culture was negative Related Data Previous Rx's Medication Instructions Recorded acetaminophen 500 mg tablet 1,000 mg PO QID PRN pain #30 tabs 02/23/22 doxycycline hyclate 100 mg capsule 100 mg PO BID 7 days #14 caps 02/23/22 cephalexin 500 mg capsule 500 mg PO Q12H #28 caps 03/24/23 ibuprofen 600 mg tablet 600 mg PO Q6H PRN fever or pain 03/28/23 #30 tabs lidocaine 4 % topical patch 1 patch topical DAILY PRN pain #30 03/28/23 ea Allergies Allergy/AdvReac Type Severity Reaction Status Date / Time hydromorphone [From DILAUDID] Allergy Unknown UNK Verified 03/28/23 18:44 levofloxacin [From LEVAQUIN] Allergy Unknown RASH Verified 03/28/23 18:44 ondansetron [From ZOFRAN] Allergy Unknown HIVES Verified 03/28/23 18:44 Penicillins [PENICILLINS] Allergy Unknown RASH Verified 03/28/23 18:44 tramadol [TRAMADOL] Allergy Unknown UNK Verified 03/28/23 18:44 codeine [CODEINE] AdvReac Unknown N/V Verified 03/28/23 18:44 morphine [MORPHINE] AdvReac Unknown N/V Verified 03/28/23 18:44 Codein Allergy Unknown Unknown Uncoded 09/15/22 21:37 MORPHINE Allergy Unknown CONFUSION/MENTAL Uncoded 09/15/22 21:37 STATUS CHANGE PCN Allergy Unknown SWELLING,RA Uncoded 09/15/22 21:37 SH Review of Systems Review of Systems Yes all other systems are reviewed and are negative PMFSH Past Medical History Medical History Diabetes Diverticulosis Erythrocytosis HTN (hypertension) Hyperlipidemia Hypothyroid Insomnia Social History Social History Advance Directives: Yes Advance Directives Information Provided: No Advance Directives on File: No Physical Exam ED Vital Signs: Vital Signs - 24 hr 03/28/23 18:39 Temperature 96.8 F Pulse Rate 75 Respiratory Rate 18 Blood Pressure 177/99 H Pulse Oximetry 95 Oxygen Delivery Method Room Air BMI result Body Mass Index 27.4 Appearance: Alert. Oriented X3. No acute distress. ENT: Pharynx normal. Oral Mucosa moist Neck: Normal inspection. Neck supple. CVS: Normal heart rate and rhythm. Pulses normal. Respiratory: No respiratory distress. Equal air entry bilateral, no wheezing/rales/rhonchi Abdomen: Soft and nontender. Bowel sounds are present, no mass palpable, no CVA tenderness back: Tenderness at the left sacroiliac joint no skin discoloration good range of movement of the left hip Skin: Skin warm and dry. Normal skin color. Normal skin turgor. Extremities: No lower extremity edema. No calf tenderness Neuro: Oriented X 3. No motor deficit. Course Course Course Narrative: This is an RME: Additional HPI, ROS, PE not included below will be deferred to primary provider. Patient is a 77 year male who presents emergency department for evaluation of Left flank left lower abdominal pain worsening since prior visit to the ED 4 days ago. States she has been compliant with the cephalexin as prescribed on 03/24/23 for pyelonephritis. Tolerating oral intake. Plan: Serum labs, U/A Medical Decision Making Medical Decision Making [facility] Narrative: Patient with normal urine no signs of infection no signs of pyelonephritis tender at left sacroiliac joint area likely sacroiliitis as a cause of pain will discharge patient home on S[place] and lidocaine patch patient allergic to other medications Lab Data [facility] Lab Attestation statement: I reviewed the patient's lab results. 03/28/23 18:51 03/28/23 18:51 Labs: Lab Results 03/28/23 03/28/23 03/28/23 Range/Units 18:51 18:51 18:51 WBC 8.4 (4.8-10.8) X10*3/uL RBC 5.20 (4.20-5.50) X10*6/uL Hgb 15.0 (12.0-16.0) g/dl Hct 43.8 (37.0-47.0) % MCV 84.2 (80.0-98.0) fL MCH 28.8 (27.0-33.0) pg MCHC 34.2 (31.0-35.0) g/dl RDW 13.0 (11.0-16.0) % Plt Count 244 (160-400) X10*3/uL MPV 11.6 (9.4-12.3) fL Immature Gran % (Auto) 0.7 H (0.0-0.4) % Neut % (Auto) 50.5 (45-73) % Lymph % (Auto) 37.3 (20-40) % [place] % (Auto) 7.0 (2-11) % Eos % (Auto) 3.5 (0-4) % Baso % (Auto) 1.0 (0-2) % Lymph # (Auto) 3.1 (1.2-4.9) X10*3/uL [place] # (Auto) 0.6 (0.1-1.2) X10*3/uL Eos # (Auto) 0.3 (0.0-0.4) X10*3/uL Baso # (Auto) 0.1 (0.0-0.2) X10*3/uL Abs Immat Gran (auto) 0.06 H (0.00-0.03) X10*3/uL Absolute Neuts (auto) 4.3 (2.0-8.3) x10*3/uL Absolute Nucleated RBC 0.000 (0.0-0.012) X10*3/uL Nucleated RBC % (auto) 0.0 (0.0-0.2) /100WBC Sodium 139 (135-145) mmol/L Potassium 3.7 (3.3-5.1) mmol/L Chloride 106 (96-108) mmol/L Carbon Dioxide 20 L (22-29) mmol/L Anion Gap 17 (12-20) BUN 16 (9-16) mg/dL Creatinine 1.31 (0.5-1.4) mg/dL Estim Creat Clear Calc 33.0 Estimated GFR 39 Random Glucose 229 H (60-115) mg/dL Calcium 9.6 (8.4-10.2) mg/dL Total Bilirubin 0.3 (0.0-1.0) mg/dL AST 19 (5-31) U/L ALT 24 (0-31) U/L Alkaline Phosphatase 58 (39-117) U/L Total Protein 8.1 H (6.5-8.0) g/dL Albumin 4.4 (3.5-5.0) g/dL Urine Color Yellow Urine Appearance Clear Urine pH 5.5 (5.0-9.0) Ur Specific [place] 1.010 (1.005-1.025) Urine Protein Negative (Neg-Trace) mg/dL Urine Glucose (UA) 250 H (Negative) mg/dL Urine Ketones Negative (Negative) mg/dL Urine Blood Negative (Negative) Urine Nitrite Negative (Negative) Ur Leukocyte Esterase Trace H (Negative) Urine RBC 0-2 (0-2) /HPF Urine WBC 0-5 (0-5) /HPF Ur Squamous Epith Cells 3-5 (0-2) /HPF Urine Bacteria None Seen (None Seen) Hyaline Casts 3-5 (0-2) /LPF Medications Administered Discontinued Medications Generic Name Dose Route Start Last Admin Trade Name Freq PRN Reason Stop Dose Admin Carisoprodol 350 mg 03/28/23 23:16 03/28/23 23:38 Carisoprodol 350 Mg Tablet PO 03/28/23 23:17 350 mg ONCE ONE Administration Lidocaine 1 patch 03/28/23 23:16 03/28/23 23:38 Lidocaine 4 % Patch Adh..Patch TRANSDERMA 03/28/23 23:17 1 patch ONCE ONE Administration Protocol Discharge Plan Discharge Clinical Impression: Sacroiliitis Patient Disposition: Home, Self-Care Instructions: Sacroiliitis (ED) Additional Instructions: Take ibuprofen for pain as prescribed Apply lidocaine patch daily at the painful at the painful area daily for 12 hours as needed Prescriptions: New ibuprofen 600 mg tablet 600 mg PO Q6H PRN (Reason: fever or pain) Qty: 30 0RF lidocaine 4 % adhesive patch,medicated 1 patch topical DAILY PRN (Reason: pain) Qty: 30 0RF Rx Instructions: Apply at the painful area for 12 hours a day No Action acetaminophen 500 mg tablet 1,000 mg PO QID PRN (Reason: pain) Qty: 30 0RF doxycycline hyclate 100 mg capsule 100 mg PO BID 7 Days Qty: 14 0RF cephalexin 500 mg capsule 500 mg PO Q12H Qty: 28 0RF Interventions: ED Discharge Assessment Last Done: 03/29/23 00:23 Discharge Date/Time: 03/29/23 00:24
[2023-03-28 18:59] LABS: MANUAL DIFF FLAG NO
[2023-03-28 19:04] LABS: Appearance Urine Clear; Color Urine Yellow; Glucose Urine UA 250 mg/dL (Negative); Leukocyte Esterase Urine Trace (Negative); Nitrite Urine Negative (Negative); PH 5.5 (5.0-9.0); UMIC TRIGGER UACC YES; Urine Blood Negative (Negative); Urine Ketones Negative (Negative); Urine Protein Negative (Neg-Trace)
[2023-03-28 19:09] LABS: Bacteria Urine None Seen (None Seen); Basophils Absolute Auto 0.1 X10*3/uL (0.0-0.2); Eosinophils Absolute Auto 0.3 X10*3/uL (0.0-0.4); Eosinophils Percent Auto 3.5 % (0-4); Hematocrit 43.8 % (37.0-47.0); Imm Gran Abs Auto 0.06 X10*3/uL (0.00-0.03); Imm Gran Pct Auto 0.7 % (0.0-0.4); Lymphocytes Absolute Auto 3.1 X10*3/uL (1.2-4.9); Lymphocytes Percent Auto 37.3 % (20-40); Mean Corpuscular HGB Conc 34.2 g/dl (31.0-35.0); Mean Corpuscular Hemoglobin 28.8 pg (27.0-33.0); Mean Corpuscular Volume 84.2 fL (80.0-98.0); Mean Platelet Volume 11.6 fL (9.4-12.3); Monocytes Absolute Auto 0.6 X10*3/uL (0.1-1.2); Neutrophils Absolute Auto 4.3 x10*3/uL (2.0-8.3); Neutrophils Percent Auto 50.5 % (45-73); Platelet Count 244 X10*3/uL (160-400); RBC Urine 0-2 /HPF (0-2); WBC Urine 0-5 /HPF (0-5); White Blood Count 8.4 X10*3/uL (4.8-10.8)
[2023-03-28 19:27] LABS: Alanine Aminotransferase 24 U/L (0-31); Albumin Level 4.4 g/dL (3.5-5.0); Alkaline Phosphatase 58 U/L (39-117); Anion Gap 17 (12-20); Aspartate Amino Transferase 19 U/L (5-31); Bilirubin Total 0.3 mg/dL (0.0-1.0); Blood Urea Nitrogen 16 mg/dL (9-16); Calcium 9.6 mg/dL (8.4-10.2); Carbon Dioxide 20 mmol/L (22-29); Chloride 106 mmol/L (96-108); Estimated Glomerular Filt Rate 39; Glucose Random 229 mg/dL (60-115); Potassium 3.7 mmol/L (3.3-5.1); Sodium 139 mmol/L (135-145); Total Protein 8.1 g/dL (6.5-8.0)
[2023-03-28] MEDS: carisoprodoL 350 MG TABLET PO (23:38)
[2023-03-28] MEDS: Lidocaine 4 % Patch ADH..PATCH 1 PATCH TRANSDERMA (23:38)
--- NOTE | 2023-03-29 00:23 | PC.NURSE ---
pt reassessed after medications, reported good relief at d/c
== END 2023-03-29 00:24 | disposition home or self-care (01) ==
PROVIDERS: Nurse Practitioner Family; Emergency Provider Internal Medicine; PCP Internal Medicine
DX: M46.1 Sacroiliitis, not elsewhere classified (principal)
CPT/HCPCS: 36415; 80053; 81001; 81003; 85025; 99283; 99284

== ENCOUNTER 2023-03-30 17:52 | Emergency (ER) | payer OTHER, SELFPAY | END 2023-03-30 20:13 | disposition left against medical advice (07) | LOC: HO.ED 20:08 | PROVIDERS: Emergency Provider Emergency Medicine; PCP Internal Medicine | DX: R10.9 Unspecified abdominal pain (principal) ==

== ENCOUNTER 2023-03-30 22:06 | Emergency (ER) | payer OTHER, SELFPAY ==
--- NOTE | ~2023-03-30 | CT_ITS ---
EXAMINATION: CT ABDOMEN AND PELVIS WITHOUT CONTRAST CLINICAL INFORMATION: Left flank pain. COMPARISON: None available. TECHNIQUE: Multidetector volumetric imaging was performed from the superior aspect of the liver through the pubic symphysis. Sagittal and coronal reformatted images were obtained on the technologist's workstation. This CT examination was performed using dose optimization techniques as appropriate, variously including the following: *Automated exposure control *Adjustment of mA and/or kV according to patient size (this includes techniques or standardized protocols for targeted exams where dose is matched to indication/reason for exam; i.e. extremities or head) *Use of iterative reconstruction technique DLP: 542 mGy-cm FINDINGS: LUNG BASES: The visualized lung bases are unremarkable. LIVER, GALLBLADDER, AND BILIARY TREE: The liver is normal in size, shape, and attenuation. No focal hepatic lesion or biliary ductal dilatation is present. There has been a prior cholecystectomy. PANCREAS: Unremarkable. SPLEEN: Unremarkable. ADRENAL GLANDS: Unremarkable. KIDNEYS AND URETERS: The kidneys are normal in size, shape, and attenuation. No hydronephrosis, hydroureter, or calculi seen. No perinephric stranding. BLADDER: Unremarkable. GASTROINTESTINAL TRACT: There are diverticula seen throughout the colon without evidence for acute diverticulitis. The appendix is visualized and is within normal limits. ABDOMINAL WALL: No significant hernia is appreciated. LYMPH NODES: Normal. VASCULAR: There is atherosclerotic plaque of the abdominal aorta. PELVIC VISCERA: Unremarkable. OSSEOUS STRUCTURES: Unremarkable. CT/CT abdomen pelvis wo IV con IMPRESSION: 1. No renal calculi or renal collecting system obstructive change. 2. Diffuse diverticulosis without diverticulitis. Fleischner guidelines were followed.
[2023-03-30 22:31] VITALS: BP 215/98; PULSE 73; RESP 20; TEMP 36.7; O2SAT 97; BMI 29.1
--- NOTE | 2023-03-30 22:38 | ECG_ITS ---
Test Reason : PAIN Blood Pressure : / mmHG Vent. Rate : 058 BPM Atrial Rate : 058 BPM P-R Int : 198 ms QRS Dur : 072 ms QT Int : 444 ms P-R-T Axes : 029 -07 110 degrees QTc Int : 435 ms Sinus bradycardia Minimal voltage criteria for LVH, may be normal variant ( R in aVL ) Anterior infarct (cited on or before 15-SEP-2022) Abnormal ECG When compared with ECG of 15-SEP-2022 21:49, No significant change was found Referred By: Sophia Henson Electronically Signed By:Vince Pina
--- NOTE | 2023-03-30 22:44 | ED.GENADULT ---
HPI - General Adult General Chief complaint: General Medical Stated complaint: LOWER ABD AND BACK PAIN Time Seen by Provider: 03/30/23 22:08 Source: patient, EMS and old records reviewed Mode of arrival: ambulatory Limitations: no limitations Related Data Previous Rx's Medication Instructions Recorded acetaminophen 500 mg tablet 1,000 mg PO QID PRN pain #30 tabs 02/23/22 doxycycline hyclate 100 mg capsule 100 mg PO BID 7 days #14 caps 02/23/22 cephalexin 500 mg capsule 500 mg PO Q12H #28 caps 03/24/23 ibuprofen 600 mg tablet 600 mg PO Q6H PRN fever or pain 03/28/23 #30 tabs lidocaine 4 % topical patch 1 patch topical DAILY PRN pain #30 03/28/23 ea Allergies Allergy/AdvReac Type Severity Reaction Status Date / Time hydromorphone [From DILAUDID] Allergy Unknown UNK Verified 03/30/23 22:37 levofloxacin [From LEVAQUIN] Allergy Unknown RASH Verified 03/30/23 22:37 ondansetron [From ZOFRAN] Allergy Unknown HIVES Verified 03/30/23 22:37 Penicillins [PENICILLINS] Allergy Unknown RASH Verified 03/30/23 22:37 tramadol [TRAMADOL] Allergy Unknown UNK Verified 03/30/23 22:37 codeine [CODEINE] AdvReac Unknown N/V Verified 03/30/23 22:37 morphine [MORPHINE] AdvReac Unknown N/V Verified 03/30/23 22:37 Codein Allergy Unknown Unknown Uncoded 03/30/23 22:37 MORPHINE Allergy Unknown CONFUSION/MENTAL Uncoded 03/30/23 22:37 STATUS CHANGE PCN Allergy Unknown SWELLING,RA Uncoded 03/30/23 22:37 [facility] Past Medical History Medical History Diabetes Diverticulosis Erythrocytosis HTN (hypertension) Hyperlipidemia Hypothyroid Insomnia Physical Exam ED Vital Signs: Vital Signs - 24 hr 03/30/23 22:31 Temperature 98.1 F Pulse Rate 73 Respiratory Rate 20 Blood Pressure 215/98 H Pulse Oximetry 97 Oxygen Delivery Method Room Air BMI result Body Mass Index 29.1 Discharge Plan Discharge Prescriptions: No Action acetaminophen 500 mg tablet 1,000 mg PO QID PRN (Reason: pain) Qty: 30 0RF doxycycline hyclate 100 mg capsule 100 mg PO BID 7 Days Qty: 14 0RF cephalexin 500 mg capsule 500 mg PO Q12H Qty: 28 0RF ibuprofen 600 mg tablet 600 mg PO Q6H PRN (Reason: fever or pain) Qty: 30 0RF lidocaine 4 % adhesive patch,medicated 1 patch topical DAILY PRN (Reason: pain) Qty: 30 0RF Rx Instructions: Apply at the painful area for 12 hours a day
[2023-03-30] MEDS: diazePAM 2 MG TABLET PO (22:54)
[2023-03-30 22:55] LABS: Basophils Absolute Auto 0.1 X10*3/uL (0.0-0.2); Basophils Percent Auto 0.6 % (0-2); Eosinophils Absolute Auto 0.3 X10*3/uL (0.0-0.4); Eosinophils Percent Auto 3.4 % (0-4); Hematocrit 43.1 % (37.0-47.0); Hemoglobin 14.9 g/dl (12.0-16.0); Imm Gran Abs Auto 0.05 X10*3/uL (0.00-0.03); Imm Gran Pct Auto 0.5 % (0.0-0.4); Lymphocytes Percent Auto 31.9 % (20-40); MANUAL DIFF FLAG NO; Mean Corpuscular HGB Conc 34.6 g/dl (31.0-35.0); Mean Corpuscular Hemoglobin 29.3 pg (27.0-33.0); Mean Corpuscular Volume 84.8 fL (80.0-98.0); Mean Platelet Volume 11.9 fL (9.4-12.3); Monocytes Absolute Auto 0.7 X10*3/uL (0.1-1.2); Monocytes Percent Auto 7.7 % (2-11); Neutrophils Absolute Auto 5.2 x10*3/uL (2.0-8.3); Neutrophils Percent Auto 55.9 % (45-73); Platelet Count 244 X10*3/uL (160-400); Red Blood Count 5.08 X10*6/uL (4.20-5.50); White Blood Count 9.2 X10*3/uL (4.8-10.8)
--- NOTE | 2023-03-30 23:08 | ED_ITS ---
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 Seen here 03/28 for L sided hip pain sent home with lidocaine patch and motrin she comes back as she feels that L flank is more painful and swollen. She has no numbness or weakness. She also notes loose stools 4 per day x 2 days. She denies fevers or vomiting. She states she has too much pain and it goes down her leg - no loss of control of bowel or bladder. She is allergic to all narcotics. She also told the RN she is having chest pain tonight elicited complaint: other (L flank and hip pain) Onset (ago): day(s) (7) Timing: constant Severity: moderate Similar Symptoms Previously: Yes Quality: stabbing and aching Location: left flank Radiation: left upper leg Exacerbating factors: movement Relieving factors: none Context: unknown Associated symptoms: abdominal pain and other (nausea) Work related injury: No Related Data Previous Rx's Medication Instructions Recorded acetaminophen 500 mg tablet 1,000 mg PO QID PRN pain #30 tabs 02/23/22 doxycycline hyclate 100 mg capsule 100 mg PO BID 7 days #14 caps 02/23/22 cephalexin 500 mg capsule 500 mg PO Q12H #28 caps 03/24/23 ibuprofen 600 mg tablet 600 mg PO Q6H PRN fever or pain 03/28/23 #30 tabs lidocaine 4 % topical patch 1 patch topical DAILY PRN pain #30 03/28/23 ea Allergies Allergy/AdvReac Type Severity Reaction Status Date / Time hydromorphone [From DILAUDID] Allergy Unknown UNK Verified 03/30/23 22:37 levofloxacin [From LEVAQUIN] Allergy Unknown RASH Verified 03/30/23 22:37 ondansetron [From ZOFRAN] Allergy Unknown HIVES Verified 03/30/23 22:37 Penicillins [PENICILLINS] Allergy Unknown RASH Verified 03/30/23 22:37 tramadol [TRAMADOL] Allergy Unknown UNK Verified 03/30/23 22:37 codeine [CODEINE] AdvReac Unknown N/V Verified 03/30/23 22:37 morphine [MORPHINE] AdvReac Unknown N/V Verified 03/30/23 22:37 Codein Allergy Unknown Unknown Uncoded 03/30/23 22:37 MORPHINE Allergy Unknown CONFUSION/MENTAL Uncoded 03/30/23 22:37 STATUS CHANGE PCN Allergy Unknown SWELLING,RA Uncoded 03/30/23 22:37 Review of Systems Review of Systems: Constitutional : No Weight loss, No Fever, No Chills, ENT/Mouth : No Hearing loss, No Ear Pain, No Nasal Congestion, No Sinus Pain, No Hoarseness, No sore throat, No Rhinorrhea, No Swallowing Difficulty Cardiovascular : pos Chest Pain, No SOB Respiratory : No Cough, No Dyspnea Gastrointestinal : No Nausea, No Vomiting, pos Diarrhea, pos abdominal Pain, No Hematochezia, No Melena Genitourinary : No Dysuria, No Urinary Frequency, No Hematuria, No Urinary Incontinence, Musculoskeletal : positive back pain Skin : No Skin Lesions, No rash Neuro : No Weakness, No Numbness, No Paresthesias, no loss of bowel or bladder incontinence, no saddle anesthesia [facility] Past Medical History Attestation statement: The following information was validated with the patient. Medical History Diabetes Diverticulosis Erythrocytosis HTN (hypertension) Hyperlipidemia Hypothyroid Insomnia Social History Social History (Updated 03/30/23 @ 23:22 by Sophia Henson DO) Alcohol intake: never Patient Tobacco Use Status: Never used Tobacco Smoked in Last 30 Days: No Use of substances other than those prescribed or required for medical reasons: No Advance Directives: No Advance Directives Information Provided: Yes Physical Exam Vital Signs: Vital Signs: Last Vital Signs Temp 98.2 F 03/31/23 02:00 Pulse 54 03/31/23 02:00 Resp 16 03/31/23 02:00 BP 143/65 H 03/31/23 02:00 Pulse Ox 98 03/31/23 02:00 O2 Del Method Room Air 03/31/23 02:00 BMI result Body Mass Index 29.1 Appearance: Alert. Oriented X3. No acute distress. anxious Eyes: Pupils equal, round and reactive to light. ENT: Pharynx normal. Neck: Normal inspection. Neck supple. CVS: Normal heart rate and rhythm. Pulses normal. Respiratory: No respiratory distress. Breath sounds normal. Abdomen: Soft and nontender. reports L lower back/flank pain I do not see swelling of left hip Skin: Skin warm and dry. Normal skin color. Normal skin turgor. Extremities: No lower extremity edema. No calf ttp Neuro: Oriented X 3. No motor deficit. No sensory deficit. SILT intact Course Course Course Narrative: BP high due to her not taking her home medications today but her Rx shows she should be only taking it in the AM but she cannot tell me what medications she is taking. although HR is low - PO clonidine ordered her CRP is low infection is unlikely Reevaluation(s) Reevaluation #1: doing well with valium Reevaluation #2: BP improved, pain gone, CT scan resolved feels better and ready to go home Medications Administered Discontinued Medications Generic Name Dose Route Start Last Admin Trade Name Narsa PRN Reason Stop Dose Admin Acetaminophen 650 mg 03/31/23 00:40 03/31/23 01:51 Acetaminophen 325 Mg Tablet PO 03/31/23 00:41 Not Given ONCE ONE Clonidine HCl 0.1 mg 03/30/23 23:26 03/31/23 00:27 Clonidine Hcl 0.1 Mg Tablet PO 03/30/23 23:27 0.1 mg ONCE ONE Administration Protocol Diazepam 2 mg 03/30/23 22:32 03/30/23 22:54 Diazepam 2 Mg Tablet PO 03/30/23 22:33 2 mg ONCE ONE Administration Ketorolac Tromethamine 15 mg 03/31/23 00:56 03/31/23 01:44 Ketorolac Tromethamine 15 Mg/Ml Vial IVPUSH 03/31/23 00:57 15 mg ONCE ONE Administration Lidocaine 1 patch 03/31/23 00:40 03/31/23 01:52 Lidocaine 4 % Patch Adh..Patch TRANSDERMA 03/31/23 00:41 Not Given ONCE ONE Protocol Medical Decision Making Medical Decision Making MDM Narrative: 77 yo female with hx of multiple pain medication allergies, DM, HTN, HLD, hypothyroidism, diverticulosis here with c/o persistent L flank pain now diarrhea with pain with movement not responding to motrin at this time she is [place] intact no signs of CE syndrome. She also reports L flank pain just treated for culture negative UA and CT scan was negative. Her BP is high and she states she did not take night medications but I am not sure what she means as her BP meds are once a day. The patient will be given valium and PO clonidine for BP given HR is low. Will workup for possible stone/diverticulitis. Doubt cauda equina Differential Diagnosis Differential Diagnoses: The differential diagnosis associated with the presentat ion includes strain, stone, diverticulosis, anxiety, chronic pain chest pain atypical given she did not report it to me but EKG and troponin ordered no tachycardia or hypoxia Admission/Observation Consideration of admission/observation: Escalation of care including admission/observation considered pain resolved workup negative stable for DC Lab Data MDM Lab Attestation statement: I reviewed the patient's lab results. 03/30/23 22:50 03/30/23 22:50 Labs: Lab Results 03/30/23 03/30/23 03/30/23 Range/Units 22:50 22:50 22:50 WBC 9.2 (4.8-10.8) X10*3/uL RBC 5.08 (4.20-5.50) X10*6/uL Hgb 14.9 (12.0-16.0) g/dl Hct 43.1 (37.0-47.0) % MCV 84.8 (80.0-98.0) fL MCH 29.3 (27.0-33.0) pg MCHC 34.6 (31.0-35.0) g/dl RDW 13.0 (11.0-16.0) % Plt Count 244 (160-400) X10*3/uL MPV 11.9 (9.4-12.3) fL Immature Gran % (Auto) 0.5 H (0.0-0.4) % Neut % (Auto) 55.9 (45-73) % Lymph % (Auto) 31.9 (20-40) % [place] % (Auto) 7.7 (2-11) % Eos % (Auto) 3.4 (0-4) % Baso % (Auto) 0.6 (0-2) % Lymph # (Auto) 3.0 (1.2-4.9) X10*3/uL [place] # (Auto) 0.7 (0.1-1.2) X10*3/uL Eos # (Auto) 0.3 (0.0-0.4) X10*3/uL Baso # (Auto) 0.1 (0.0-0.2) X10*3/uL Abs Immat Gran (auto) 0.05 H (0.00-0.03) X10*3/uL Absolute Neuts (auto) 5.2 (2.0-8.3) x10*3/uL Absolute Nucleated RBC 0.000 (0.0-0.012) X10*3/uL Nucleated RBC % (auto) 0.0 (0.0-0.2) /100WBC Sodium 136 (135-145) mmol/L Potassium 4.0 (3.3-5.1) mmol/L Chloride 106 (96-108) mmol/L Carbon Dioxide 18 L (22-29) mmol/L Anion Gap 16 (12-20) BUN 19 H (9-16) mg/dL Creatinine 1.44 H (0.5-1.4) mg/dL Estim Creat Clear Calc 30.9 Estimated GFR 35 Random Glucose 303 H (60-115) mg/dL Calcium 9.6 (8.4-10.2) mg/dL Magnesium 1.8 (1.6-2.6) mg/dL Total Bilirubin 0.2 (0.0-1.0) mg/dL Direct Bilirubin < 0.2 (0.0-0.5) mg/dL AST 22 (5-31) U/L ALT 20 (0-31) U/L Alkaline Phosphatase 59 (39-117) U/L Troponin I High Sens < 2.7 (<3.5-17.0) ng/L C-Reactive Protein 0.25 (< or = 0.50) mg/dL Total Protein 8.2 H (6.5-8.0) g/dL Albumin 4.2 (3.5-5.0) g/dL Lipase 39 (8-78) U/L Urine Color Urine Appearance Urine pH (5.0-9.0) Ur Specific [place] (1.005-1.025) Urine Protein (Neg-Trace) mg/dL Urine Glucose (UA) (Negative) mg/dL Urine Ketones (Negative) mg/dL Urine Blood (Negative) Urine Nitrite (Negative) Ur Leukocyte Esterase (Negative) Urine RBC (0-2) /HPF Urine WBC (0-5) /HPF Ur Squamous Epith Cells (0-2) /HPF Urine Bacteria (None Seen) Hyaline Casts (0-2) /LPF 03/30/23 Range/Units 23:25 WBC (4.8-10.8) X10*3/uL RBC (4.20-5.50) X10*6/uL Hgb (12.0-16.0) g/dl Hct (37.0-47.0) % MCV (80.0-98.0) fL MCH (27.0-33.0) pg MCHC (31.0-35.0) g/dl RDW (11.0-16.0) % Plt Count (160-400) X10*3/uL MPV (9.4-12.3) fL Immature Gran % (Auto) (0.0-0.4) % Neut % (Auto) (45-73) % Lymph % (Auto) (20-40) % [place] % (Auto) (2-11) % Eos % (Auto) (0-4) % Baso % (Auto) (0-2) % Lymph # (Auto) (1.2-4.9) X10*3/uL [place] # (Auto) (0.1-1.2) X10*3/uL Eos # (Auto) (0.0-0.4) X10*3/uL Baso # (Auto) (0.0-0.2) X10*3/uL Abs Immat Gran (auto) (0.00-0.03) X10*3/uL Absolute Neuts (auto) (2.0-8.3) x10*3/uL Absolute Nucleated RBC (0.0-0.012) X10*3/uL Nucleated RBC % (auto) (0.0-0.2) /100WBC Sodium (135-145) mmol/L Potassium (3.3-5.1) mmol/L Chloride (96-108) mmol/L Carbon Dioxide (22-29) mmol/L Anion Gap (12-20) BUN (9-16) mg/dL Creatinine (0.5-1.4) mg/dL Estim Creat Clear Calc Estimated GFR Random Glucose (60-115) mg/dL Calcium (8.4-10.2) mg/dL Magnesium (1.6-2.6) mg/dL Total Bilirubin (0.0-1.0) mg/dL Direct Bilirubin (0.0-0.5) mg/dL AST (5-31) U/L ALT (0-31) U/L Alkaline Phosphatase (39-117) U/L Troponin I High Sens (<3.5-17.0) ng/L C-Reactive Protein (< or = 0.50) mg/dL Total Protein (6.5-8.0) g/dL Albumin (3.5-5.0) g/dL Lipase (8-78) U/L Urine Color Yellow Urine Appearance Clear Urine pH 5.5 (5.0-9.0) Ur Specific [place] <= 1.005 (1.005-1.025) Urine Protein Negative (Neg-Trace) mg/dL Urine Glucose (UA) 500 H (Negative) mg/dL Urine Ketones Negative (Negative) mg/dL Urine Blood Negative (Negative) Urine Nitrite Negative (Negative) Ur Leukocyte Esterase Trace H (Negative) Urine RBC 0-2 (0-2) /HPF Urine WBC 0-5 (0-5) /HPF Ur Squamous Epith Cells 0-2 (0-2) /HPF Urine Bacteria None Seen (None Seen) Hyaline Casts 3-5 (0-2) /LPF Independent Interpretation I performed an independent interpretation of an: EKG and CT Scan (no acute findings) Interpretation: Rate: 58 Rhythm: sinus bradycardia [place]: left axis, LVH Normal P waves. Normal ROSITA. Normal QRS complex. ST T wave : normal no ROSLYN qTC: normal prior studies: no acute ischemia The study has been interpreted contemporaneously by me. . Radiology Impression Discussion of test interpretation with radiology: I have reviewed the radiologist's reading. Independent Historian Clinical information obtained from an independent historian. History obtained from or confirmed by: Spouse External Record Review External record reviewed: Inpatient record and Office record Discharge Plan Discharge Clinical Impression: Acute hip pain Qualifiers: Laterality: left Qualified Code(s): M25.552 - Pain in left hip Patient Disposition: Home, Self-Care Instructions: Hip Pain (ED) Additional Instructions: return for worsening pain, fevers, rash or any other concerns. please talk to your doctor today about better pain control or referral to pain management for pain injections. Prescriptions: No Action acetaminophen 500 mg tablet 1,000 mg PO QID PRN (Reason: pain) Qty: 30 0RF doxycycline hyclate 100 mg capsule 100 mg PO BID 7 Days Qty: 14 0RF cephalexin 500 mg capsule 500 mg PO Q12H Qty: 28 0RF ibuprofen 600 mg tablet 600 mg PO Q6H PRN (Reason: fever or pain) Qty: 30 0RF lidocaine 4 % adhesive patch,medicated 1 patch topical DAILY PRN (Reason: pain) Qty: 30 0RF Rx Instructions: Apply at the painful area for 12 hours a day Referrals: Drew Ambrocio MD [Physician] - (can call any provider in this group) Print Language: Greenlandic
[2023-03-30 23:13] LABS: Alanine Aminotransferase 20 U/L (0-31); Albumin Level 4.2 g/dL (3.5-5.0); Alkaline Phosphatase 59 U/L (39-117); Anion Gap 16 (12-20); Aspartate Amino Transferase 22 U/L (5-31); Bilirubin Direct < 0.2 mg/dL (0.0-0.5); Bilirubin Total 0.2 mg/dL (0.0-1.0); Blood Urea Nitrogen 19 mg/dL (9-16); C Reactive Protein 0.25 mg/dL (< or = 0.50); Calcium 9.6 mg/dL (8.4-10.2); Carbon Dioxide 18 mmol/L (22-29); Chloride 106 mmol/L (96-108); Creatinine Clr Calc Pharmacy 30.9; Estimated Glomerular Filt Rate 35; Glucose Random 303 mg/dL (60-115); Lipase 39 U/L (8-78); Magnesium 1.8 mg/dL (1.6-2.6); Sodium 136 mmol/L (135-145); Total Protein 8.2 g/dL (6.5-8.0)
[2023-03-30 23:22] VITALS: BP 215/110; PULSE 59; RESP 16; TEMP 36.9; O2SAT 98
[2023-03-30 23:22] LABS: Troponin-I High Sensitivity < 2.7 ng/L (<3.5-17.0)
--- NOTE | 2023-03-30 23:28 | MHC.EDTECH ---
PATIENT WAS ASSISTED UNTO BEDPAN ,PATIENT VOID LARGE AMOUNT OF URINE, PATIENT HAD AN INCONTINENT EPISODE ,CARE GIVEN AND BEDDING CHANGE ,URINE SAMPLE COLLECTED AND SENT TO LAB ,EKG TAKEN AND WAS READ BY PROVIDER .
[2023-03-30 23:37] LABS: Appearance Urine Clear; Color Urine Yellow; Glucose Urine UA 500 mg/dL (Negative); Leukocyte Esterase Urine Trace (Negative); Nitrite Urine Negative (Negative); PH 5.5 (5.0-9.0); Specific Gravity - Urine <= 1.005 (1.005-1.025); UMIC TRIGGER UACC YES; Urine Blood Negative (Negative); Urine Ketones Negative (Negative); Urine Protein Negative (Neg-Trace)
[2023-03-30 23:39] LABS: Bacteria Urine None Seen (None Seen); RBC Urine 0-2 /HPF (0-2); Squamous Epithelial Cell Urine 0-2 /HPF (0-2); WBC Urine 0-5 /HPF (0-5)
[2023-03-31] MEDS: cloNIDine HCL 0.1 MG TABLET PO (00:27)
[2023-03-31 00:41] VITALS: BP 158/117; PULSE 68; RESP 16; TEMP 36.7; O2SAT 98
[2023-03-31] MEDS: Ketorolac Tromethamine 15 MG/ML VIAL IVPUSH (01:44)
[2023-03-31 02:00] VITALS: BP 143/65; PULSE 54; RESP 16; TEMP 36.8; O2SAT 98
--- NOTE | 2023-03-31 02:04 | MHC.EDTECH ---
0200 ROUNDING DONE ,VITALS SIGN TAKEN ,PT RESTING QUIETLY IN BED ,FAMILY MEMBER AT BEDSIDE .
[2023-03-31 04:00] VITALS: BP 132/63; PULSE 49; RESP 15; TEMP 36.2; O2SAT 98
--- NOTE | 2023-03-31 05:06 | PC.NURSE ---
No sob or chest pain, Reviewed discharge instructions with pt, pt verbalized understanding, pt wheeled out in chair, Reported to VANNESSA Olivares.
== END 2023-03-31 05:09 | disposition home or self-care (01) ==
PROVIDERS: Emergency Provider Emergency Medicine
DX: M25.552 Pain in left hip (principal); R00.1 Bradycardia, unspecified; R10.9 Unspecified abdominal pain; M54.50 Low back pain, unspecified; I10 Essential (primary) hypertension; R11.2 Nausea with vomiting, unspecified; Z79.899 Other long term (current) drug therapy
CPT/HCPCS: 36415; 74176; 80048; 80076; 81001; 83690; 83735; 84484; 85025; 86140; 93005; 96374; 99284; 99285; J1885

== ENCOUNTER → 2023-03-30 22:38 | Outpatient (BNV) | payer OTHER, SELFPAY | PROVIDERS: Emergency Provider Emergency Medicine; Visit Provider Internal Medicine Cardiovascular Disease | DX: R00.1 Bradycardia, unspecified (principal) | CPT/HCPCS: 93010 ==

== ENCOUNTER 2023-04-04 07:33 | Emergency (ER) | payer OTHER, SELFPAY ==
[2023-04-04 07:50] VITALS: BP 204/97; PULSE 60; RESP 16; TEMP 36.6; O2SAT 99; BMI 27.4
--- NOTE | 2023-04-04 09:05 | ED_ITS ---
HPI - Extremity Problem General Chief complaint: Extremity Problem Stated complaint: L sided back pain Time Seen by Provider: 04/04/23 09:00 Source: patient and family Mode of arrival: ambulatory Limitations: no limitations History of Present Illness HPI Narrative: 77 yo [place] speaking female with history of hypertension and diabetes presents to the ER for evaluation of lower back pain that radiates to her hip/groin. She states that it is constant pain that is sharp/stabbing. It intermittently radiates down her leg. It has made ambulating difficult so she is using a cane. She denies any trauma or injury to the location. No edema or erythema noted to the LLE. She denies any difficulty with urination, BMs, abdominal pain, fever, chills, nausea, or vomiting. She has followed up with her PCP and multiple ER visits. Per the pt her primary did an X-ray that showed arthritis and she was referred to an ortho specialist. Her last visit here was 03/31/[address] where she had a CT abd/pelvis which was unremarkable other than diverticulosis. She denies any relief from ice, heat, Tylenol, or NSAIDS. MD Complaint: extremity pain Onset (ago): month(s) Pain Consistency: constant Location: left Quality: stabbing and sharp Radiation: distal Relieving factors: nothing Exacerbating factors: range of motion, weight bearing, walking and palpation Associated symptoms: denies other symptoms Related Data Previous Rx's Medication Instructions Recorded acetaminophen 500 mg tablet 1,000 mg PO QID PRN pain #30 tabs 02/23/22 doxycycline hyclate 100 mg capsule 100 mg PO BID 7 days #14 caps 02/23/22 cephalexin 500 mg capsule 500 mg PO Q12H #28 caps 03/24/23 ibuprofen 600 mg tablet 600 mg PO Q6H PRN fever or pain 03/28/23 #30 tabs lidocaine 4 % topical patch 1 patch topical DAILY PRN pain #30 03/28/23 ea cyclobenzaprine 5 mg tablet 5 mg PO TID PRN muscle spasm #14 04/04/23 tabs prednisone 20 mg tablet 40 mg PO DAILY #10 tabs 04/04/23 Allergies Allergy/AdvReac Type Severity Reaction Status Date / Time hydromorphone [From DILAUDID] Allergy Unknown UNK Verified 04/04/23 07:50 levofloxacin [From LEVAQUIN] Allergy Unknown RASH Verified 04/04/23 07:50 ondansetron [From ZOFRAN] Allergy Unknown HIVES Verified 04/04/23 07:50 Penicillins [PENICILLINS] Allergy Unknown RASH Verified 04/04/23 07:50 tramadol [TRAMADOL] Allergy Unknown UNK Verified 04/04/23 07:50 codeine [CODEINE] AdvReac Unknown N/V Verified 04/04/23 07:50 morphine [MORPHINE] AdvReac Unknown N/V Verified 04/04/23 07:50 Review of Systems Review of Systems: Yes all other systems are reviewed and are negative [facility] Past Medical History Medical History Diabetes Diverticulosis Erythrocytosis HTN (hypertension) Hyperlipidemia Hypothyroid Insomnia Social History Social History (Updated 03/30/23 @ 23:22 by Sophia Henson DO) Alcohol intake: never Patient Tobacco Use Status: Never used Tobacco Smoked in Last 30 Days: No Use of substances other than those prescribed or required for medical reasons: No Advance Directives: No Physical Exam Vital Signs: Vital Signs: Last Vital Signs Temp 96.6 F L 04/04/23 11:07 Pulse 55 04/04/23 11:07 Resp 18 04/04/23 11:23 BP 192/91 H 04/04/23 11:07 Pulse Ox 99 04/04/23 11:07 O2 Del Method Room Air 04/04/23 11:07 BMI result Body Mass Index 27.4 Appearance: Alert. Oriented X3. No acute distress. Head: normocephalic, atraumatic. Eyes: Pupils equal, round and reactive to light. Neck: Normal visual inspection CVS: Normal heart rate and rhythm. Pulses normal. Respiratory: No respiratory distress. Breath sounds normal. Abdomen: Soft and nontender. +BS x4 Skin: Skin warm and dry. Normal skin color. Normal skin turgor. No rashes. Extremities: (+) left lower back tenderness. (+) left hip tenderness (+) intermittent distal radiation down the left leg. No lower extremity edema. No joint swelling. Neuro/psych: Oriented X 3. No motor deficit. No sensory deficit. Normal speech and cognition. Medications Administered Discontinued Medications Generic Name Dose Route Start Last Admin Trade Name Freq PRN Reason Stop Dose Admin Acetaminophen 975 mg 04/04/23 10:00 04/04/23 10:07 Acetaminophen 325 Mg Tablet PO 04/04/23 10:01 975 mg ONCE ONE Administration Methylprednisolone Sodium Succinate 40 mg 04/04/23 10:00 04/04/23 10:07 Methylprednisolone Sod Succ 40 Mg/Ml Vial IM 04/04/23 10:01 40 mg ONCE ONE Administration Medical Decision Making Medical Decision Making MDM Narrative: 77 yo [place] speaking female with history of hypertension and diabetes presents to the ER for evaluation of lower back pain that radiates to her hip/groin. On exam she is hypertensive secondary to her pain and in NAD, she has no red flag symptoms present, and no trauma or injury noted. Likely to be sciatica vs. MSK strain/spasms. Unlikely to be malignancy, cauda equina (no bowel or urinary incontinence/retention, no saddle anesthesia, no distal weakness), fracture (no bony tenderness to palpation or trauma), nephrolithiasis, or pyelonephritis. Plan: treatment options w/ narctocis limited due to multiple allergies. will start Steroids, muscle relaxers, follow up with PCP/ortho Differential Diagnosis Differential Diagnoses: The differential diagnosis associated with the presentation includes malignancy, cauda equina (no bowel or urinary incontinence/retention, no saddle anesthesia, no distal weakness), fracture (no bony tenderness to palpation or trauma), nephrolithiasis, or pyelonephritis. Admission/Observation Consideration of admission/observation: Escalation of care including admission/observation considered elderly female with fourth visit for severe pain considered observation/admission for pain control and patient safety Lab Data [facility] Lab Attestation statement: I reviewed the patient's lab results. no UTI Labs: Lab Results 04/04/23 04/04/23 Range/Units 09:38 10:15 POC Glucose 199 H (60-115) mg/dL Urine Color Yellow Urine Appearance Clear Urine pH 5.5 (5.0-9.0) Ur Specific [place] 1.010 (1.005-1.025) Urine Protein Negative (Neg-Trace) mg/dL Urine Glucose (UA) 100 H (Negative) mg/dL Urine Ketones Negative (Negative) mg/dL Urine Blood Negative (Negative) Urine Nitrite Negative (Negative) Ur Leukocyte Esterase Small (1+) H (Negative) Urine RBC 0-2 (0-2) /HPF Urine WBC 6-10 H (0-5) /HPF Ur Squamous Epith Cells 6-10 (0-2) /HPF Urine Bacteria None Seen (None Seen) Hyaline Casts 0-2 (0-2) /LPF Independent Historian Clinical information obtained from an independent historian. History obtained from or confirmed by: Spouse and Other (erlinda) External Record Review External record reviewed: Other (prior radiology reports reviewed with no acute osseous findings ) Prescription Management I considered prescription management with: Pain Medication and Other (steroids, muscle relaxers) Chronic Conditions Patient?s care impacted by: Diabetes and Hypertension Critical Care Time Critical Care Time Critical Care Time: No Discharge Plan Discharge Clinical Impression: Low back pain Patient Disposition: Home, Self-Care Instructions: Sciatica (ED) Additional Instructions: Your imaging from your last couple of ER visits was reviewed, the bones of the back and hip were unremarkable. Take the prescribed steroid medication as directed, this will help with inflammation and pain. Take the prescribed muscle relaxer as directed as well. Recommend following up with Orthopedics, your primary care doctor, and the noninvasive spinal specialist. Call them on Thursday to arrange appointments. If you develop new or worsening symptoms call 911 or come back to the ER for further evaluation. Se revisaron las im?genes de chris ?ltimas dos visitas a la sarah de emergencias, los huesos de la espalda y la cadera no ten?an nada especial. [place] el medicamento esteroide recetado seg?n las indicaciones, esto ayudar? con la inflamaci?n y el dolor. Tambi?n tome el relajante muscular recetado seg?n las indicaciones. Recomiende hacer un seguimiento con ortopedia, herrera m?dico de atenci?n primaria y el especialista en columna no invasiva. Ll?malos el lunes para concertar citas. Si desarrolla s?ntomas nuevos o que empeoran, llame al 911 o regrese a la sarah de emergencias para ginger evaluaci?n adicional. Prescriptions: New prednisone 20 mg tablet 40 mg PO DAILY Qty: 10 0RF cyclobenzaprine 5 mg tablet 5 mg PO TID PRN (Reason: muscle spasm) Qty: 14 0RF No Action acetaminophen 500 mg tablet 1,000 mg PO QID PRN (Reason: pain) Qty: 30 0RF doxycycline hyclate 100 mg capsule 100 mg PO BID 7 Days Qty: 14 0RF cephalexin 500 mg capsule 500 mg PO Q12H Qty: 28 0RF ibuprofen 600 mg tablet 600 mg PO Q6H PRN (Reason: fever or pain) Qty: 30 0RF lidocaine 4 % adhesive patch,medicated 1 patch topical DAILY PRN (Reason: pain) Qty: 30 0RF Rx Instructions: Apply at the painful area for 12 hours a day Referrals: Davonte Reid III, MD [Primary Care Provider] - Karthikeyan Mejias MD, PhD [Physician] - Interventions: ED Discharge Assessment Last Done: 04/04/23 11:25 Discharge Date/Time: 04/04/23 11:32 Print Language: [place]
--- NOTE | 2023-04-04 09:43 | PC.NURSE ---
pt resting in bed- reports left flank pain radiating to left lower extremity. talking well. manager mba paged. aox4. calm, cooperative. no neuro deficits noted. +CMS
[2023-04-04 09:48] LABS: Glucose, Whole Blood 199 mg/dL (60-115)
[2023-04-04] MEDS: Acetaminophen 325 MG TABLET 975 MG PO (10:07)
[2023-04-04] MEDS: methylPREDNISolone Sod Succ 40 MG/ML VIAL IM (10:07)
[2023-04-04 10:35] LABS: Appearance Urine Clear; Color Urine Yellow; Glucose Urine UA 100 mg/dL (Negative); Leukocyte Esterase Urine Small (1+) (Negative); Nitrite Urine Negative (Negative); PH 5.5 (5.0-9.0); UMIC TRIGGER UACC YES; Urine Blood Negative (Negative); Urine Ketones Negative (Negative); Urine Protein Negative (Neg-Trace)
[2023-04-04 10:40] LABS: Bacteria Urine None Seen (None Seen); Hyaline Casts Urine 0-2 /LPF (0-2); RBC Urine 0-2 /HPF (0-2); UACC Culture Trigger YES
[2023-04-04 11:07] VITALS: BP 192/91; PULSE 55; TEMP 35.9; O2SAT 99
[2023-04-04 11:23] VITALS: RESP 18
--- NOTE | 2023-04-04 11:24 | PC.NURSE ---
pt aox4. calm, coop. stated meds helped from 10 to 7 for pierce. shraddha hou aware bp elevated but slightly improved from p[rior bp - pa states ok to d/c. no cp/sob/dizziness/other sx
== END 2023-04-04 11:32 | disposition home or self-care (01) ==
PROVIDERS: Physician Assistant; Emergency Provider Emergency Medicine Emergency Medical Services; PCP Internal Medicine
DX: N39.0 Urinary tract infection, site not specified (principal); B96.20 Unspecified Escherichia coli [E. coli] as the cause of diseases classified elsewhere; M54.50 Low back pain, unspecified; I10 Essential (primary) hypertension; E11.9 Type 2 diabetes mellitus without complications; E78.5 Hyperlipidemia, unspecified; E03.9 Hypothyroidism, unspecified; M25.559 Pain in unspecified hip; Z79.899 Other long term (current) drug therapy
CPT/HCPCS: 81001; 82947; 87086; 87088; 87186; 96372; 99284; J2920

== ENCOUNTER 2023-05-07 09:04 | Outpatient (REF) | payer OTHER, SELFPAY ==
--- NOTE | ~2023-05-07 | XR_ITS ---
EXAMINATION: XR HIP, LEFT WITH AP PELVIS CLINICAL INFORMATION: Osteoarthritis. COMPARISON: Radiographs dated 04/12/2020. TECHNIQUE: AP and frog-leg lateral views of the left hip are submitted, together with a frontal view the pelvis. FINDINGS: No fracture. Alignment is anatomic. The acetabular joint spaces are well-maintained. The femoral heads are smooth. No fracture or dislocation is seen. The bilateral sacroiliac joints are symmetric and well-maintained. The pubic symphysis is intact. There are pelvic phleboliths. The soft tissue planes are unremarkable. Incompletely characterized degenerative changes of the lumbar spine. XR/XR hip LT w PEL1V IMPRESSION: Normal left hip.
== END 2023-05-07 09:05 | disposition home or self-care (01) ==
LOC: HO.HOSX 09:04
PROVIDERS: PCP Internal Medicine; Visit Provider Physical Medicine & Rehabilitation
DX: M16.12 Unilateral primary osteoarthritis, left hip (principal); M70.62 Trochanteric bursitis, left hip
CPT/HCPCS: 73502

== ENCOUNTER 2023-05-07 09:04 | Outpatient (AMB) | payer OTHER, SELFPAY ==
--- NOTE | 2023-05-07 09:12 | A.OFFVIS_ITS ---
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 She reports that the pain started a month ago. For the past week she has had less pain. She reports she had some tylenol and steroids that may have helped. She is ac companied by her granddaughter today. 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: Yes Allergies hydromorphone [From DILAUDID] Allergy (Unknown, Verified 05/07/23 09:13) UNK levofloxacin [From LEVAQUIN] Allergy (Unknown, Verified 05/07/23 09:13) RASH ondansetron [From ZOFRAN] Allergy (Unknown, Verified 05/07/23 09:13) HIVES Penicillins [PENICILLINS] Allergy (Unknown, Verified 05/07/23 09:13) RASH tramadol [TRAMADOL] Allergy (Unknown, Verified 05/07/23 09:13) UNK codeine [CODEINE] Adverse Reaction (Unknown, Verified 05/07/23 09:13) N/V morphine [MORPHINE] Adverse Reaction (Unknown, Verified 05/07/23 09:13) N/V Medication List - Last Reconciled 05/07/23 by Swati Hood RN acetaminophen 1,000 mg (2 x 500 mg) PO QID PRN cephalexin 500 mg PO Q12H cyclobenzaprine 5 mg PO TID PRN doxycycline hyclate 100 mg PO BID 7 days ibuprofen 600 mg PO Q6H PRN lidocaine 4% 1 patch topical DAILY PRN prednisone 40 mg (2 x 20 mg) PO DAILY HPI HPI Comments History of Present Illness Details Here with granddaughter Maegan who provided history. Started with left hip pain 1 1/2month ago. No falls. Acute onset. Patient was not sick at that time. She had also back pain, more left side, radiating to stomach and leg. She had gone to ED 4-5 times. Last ED visit, she was given prednisone. Finished 7 days and now she feels better, no pain. Abdomen CT done. She was prophylactically treated for UTI. PENDING SALE TO [facility] Medical History (Updated 05/07/23 @ 09:40 by Gabi Tobin MD) Degenerative joint disease (DJD) of hip Erythrocytosis Diverticulosis Insomnia Diabetes Hypothyroid Hyperlipidemia HTN (hypertension) Social History (Updated 03/30/23 @ 23:22 by Sophia Henson DO) Alcohol intake: never Patient Tobacco Use Status: Never used Tobacco Review of Systems Const All systems reviewed & are unremarkable except as noted in HPI and below Physical Exam Constitutional: Patient appears to be in no acute distress, well nourished and well developed. Patient was appropriately conversant and oriented. MSK: Inspection reveals appropriate head and neck positioning. No specific abnormalities found on inspection of the spine and all extremities. No pain with palpation over the lumbar area. No pinpoint tenderness over spinous processes. Lumbar ROM was full. Only mild tenderness on left greater trochanter. No tenderness in the right GT. SI Joint nontender. Neurological: Mood appears normal, good affect, and appropriate for the circumstances. Neurologic examination of the upper and lower extremities was nonfocal with intact sensation, muscle stretch reflexes and without focal motor deficits. Hernandez?s negative bilaterally. Gait is non-antalgic without loss of balance. Results Reviewed Results Reviewed: I reviewed records from the following: ER visit Assessment & Plan Assessment & Plan (1) Degenerative joint disease (DJD) of hip: Code(s): M16.9 - Osteoarthritis of hip, unspecified Qualifiers: Laterality: left Osteoarthritis type: primary Qualified Code(s): M16.12 - Unilateral primary osteoarthritis, left hip (2) Trochanteric bursitis of left hip: Code(s): M70.62 - Trochanteric bursitis, left hip Plan Suspect she had inflammation from DJD or trochanteric bursitis. This is now resolved from recent oral prednisone burst. We will still get hip x-ray today to confirm presence of DJD. Discussed with granddaughter that it would not be safe at patient's age to give her oral prednisone too frequently due to long-term complications. This was to set expectations if pain would recur. Granddaughter verbalized understanding and agreement. Assessment and plan discussed with patient, and patient was agreeable. All questions were answered thoroughly. Follow-up in 3 months. Gabi Tobin MD, ANNALEE Board Certified, [place] [employer] and Rehabilitation (ABPMR) Board Certified, [place] Board [employer] Electrodiagnostic [employer] (ABEM) Orders: Orders XR hip LT w PEL1V Today M16.9 - Osteoarthritis of hip, unspecified Medications: Discontinued doxycycline hyclate Discontinued Reason: Patient Completed Course 100 mg PO BID 7 days 14 caps 0RF cephalexin Discontinued Reason: Patient Completed Course 500 mg PO Q12H 28 caps 0RF cyclobenzaprine Discontinued Reason: Patient Completed Course 5 mg PO TID PRN 14 tabs 0RF muscle spasm prednisone Discontinued Reason: Patient Completed Course 40 mg (2 x 20 mg) PO DAILY 10 tabs 0RF Coding Level of Care Code New Pt Level 4 (24853) Diagnoses Primary osteoarthritis of left hip M16.12 Laterality: left Osteoarthritis type: primary Trochanteric bursitis of left hip M70.62
== END 2023-05-07 09:51 | disposition home or self-care (01) ==
PROVIDERS: PCP Internal Medicine; Visit Provider Physical Medicine & Rehabilitation
DX: M16.12 Unilateral primary osteoarthritis, left hip (principal); M70.62 Trochanteric bursitis, left hip
CPT/HCPCS: 99204

== ENCOUNTER 2023-06-22 06:58 | Day surgery (SDC) | payer OTHER, SELFPAY ==
[2023-06-18 14:30] VITALS: BMI 28.5
[2023-06-22] MEDS: Lactated Ringers 1,000 ML 50 ML IVCONT (09:12)
[2023-06-22 09:14] LABS: Glucose, Whole Blood 177 mg/dL (60-115)
[2023-06-22 09:17] VITALS: BP 156/70; PULSE 48; RESP 16; TEMP 36.2; O2SAT 97; BMI 27.4
--- NOTE | 2023-06-22 09:56 | HO.ANESPROP2 ---
HPI - Anesthesia Eval Consult details Narrative: 78 yo F for colonoscopy. Hx of HTN, HLD, NIDDM, emphysema, hypothyroid. 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) Social History Social History (Updated 03/30/23 @ 23:22 by Sophia Henson DO) Alcohol intake: never Patient Tobacco Use Status: Never used Tobacco Use of substances other than those prescribed or required for medical reasons: No Are you DNR?: No Advance Directives: No Advance Directives Information Provided: Yes Meds Allergies Allergy/AdvReac Type Severity Reaction Status Date / Time levofloxacin [From LEVAQUIN] Allergy Intermediate RASH Verified 06/22/23 09:13 ondansetron [From ZOFRAN] Allergy Intermediate HIVES Verified 06/22/23 09:13 Penicillins [PENICILLINS] Allergy Intermediate RASH Verified 06/22/23 09:13 hydromorphone [From DILAUDID] Allergy Unknown Unknown Verified 06/22/23 09:13 tramadol [TRAMADOL] Allergy Unknown Unknown Verified 06/22/23 09:13 codeine [CODEINE] AdvReac Intermediate N/V Verified 06/22/23 09:13 morphine [MORPHINE] AdvReac Intermediate N/V Verified 06/22/23 09:13 Active Medications: Current Medications Lactated Ringer's (Lr) 1,000 mls @ 50 mls/hr IVCONT .Q20H RADHA Last Admin: 06/22/23 09:12 Dose: 50 mls/hr Sodium Biphosphate/Sodium Phosphate (Sodium Phosphate,Johnson-Dibasic 133 Ml Enema) 133 ml MT ONCE PRN PRN Reason: Poor Colonoscopy Prep Results Home Medications Medication Instructions Recorded Confirmed Last Taken Type levothyroxine 150 mcg tablet 150 mcg PO DAILY 06/18/23 06/18/23 06/22/23 History metformin 1,000 mg tablet 1,000 mg PO BID 06/18/23 06/22/23 06/21/23 History metoprolol succinate 50 mg 50 mg PO DAILY 06/18/23 06/18/23 06/22/23 History tablet,extended release 24 hr simvastatin 20 mg tablet 20 mg PO BEDTIME 06/18/23 06/22/23 06/21/23 History sitagliptin phosphate 100 mg 100 mg PO DAILY 06/18/23 06/22/23 06/21/23 History tablet (Januvia) zolpidem 5 mg tablet 5 mg PO BEDTIME 06/18/23 06/18/23 Unknown History Exam Exam Date and Time: June 22, 2023 0956 Height,Weight and Vital Signs: Height 5 ft 2 in Weight 68.039 kg Last Vital Signs Temp 97.1 F 06/22/23 09:17 Pulse 48 L 06/22/23 09:17 Resp 16 06/22/23 09:17 BP 156/70 H 06/22/23 09:17 Pulse Ox 97 06/22/23 09:17 O2 Del Method Room Air 06/22/23 09:17 Pertinent Lab Results Pertinent Lab Results: Laboratory Tests 06/22/23 09:09 POC Glucose 177 H Airway Mallampati Class: II TM Dist: <=3cm Neck ROM: Full Loose/Missing/Broken Teeth: No Heart: S1S2 Lungs: CTAB Assessment and Plan Assessment Anesthesia Assessment: Anesthesia Plan Discussed and Chart Reviewed Final Anesthetic Review History of Problems with Anesthesia: Yes (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 and Plan Disposition: Standard PACU
[2023-06-22 11:10] VITALS: BP 143/76; PULSE 58; RESP 20; TEMP 36.6; O2SAT 95
--- NOTE | 2023-06-22 11:14 | P.BOP_ITS ---
Brief Operative Note Date of Service: 06/22/23 Pre-op diagnosis: Screening Post-op diagnosis: other (Polyps) Procedure: Colonoscopy to the cecum with cold snare polypectomy x 2, Bx/removal of polyp x 1, and hot snare polypectomy at 20cm. Surgeon: Jake Montalvo MD Anesthesia: MAC Was an Pallet Stone Inserter used for this Procedure?: No Estimated blood loss (mL): 2.0 Pathology: other (A. Ascending colon polyps B. Transverse colon polyp C. Polyp at 20cm) Condition: stable Disposition: PACU
[2023-06-22 11:25] VITALS: BP 168/80; PULSE 51; RESP 18; TEMP 36.1; O2SAT 97
--- NOTE | 2023-06-22 11:37 | OP_ITS ---
DATE OF SERVICE: 06/22/2023 SURGEON: Jake Montalvo MD INDICATIONS: The patient presents for evaluation of colorectal cancer screening. Full consent has been obtained from her for this, including risks of bleeding and perforation. PREOPERATIVE DIAGNOSIS: Colorectal cancer screening. POSTOPERATIVE DIAGNOSIS: PROCEDURE PERFORMED: Colonoscopy to the cecum with cold snare polypectomy x3, and hot snare polypectomy x1. ESTIMATED BLOOD LOSS: COMPLICATIONS: ANESTHESIA: Monitored anesthesia care. ASSISTANTS: SPECIMENS: POSTOPERATIVE DIAGNOSES: Colorectal cancer screening, colon polyps, diverticulosis, and internal hemorrhoids. DESCRIPTION OF PROCEDURE: The patient was placed in the left lateral decubitus position. The digital rectal exam revealed no abnormalities. The Olympus video pediatric colonoscope was entered into the rectum and advanced to the cecum with the assistance of abdominal wall pressure. Once in the cecum, I did identify normal-appearing cecal pouch with appendiceal orifice and a normal-appearing ileocecal valve. The entire cecum and ileocecal valve appeared normal. The scope was slowly withdrawn assessing all mucosal surfaces carefully. Preparation was excellent. In the proximal ascending colon was a flat, approximately 4 mm polyp, which was biopsied and removed with a cold biopsy forceps. In the same area was an approximately 5 mm polyp, which was removed by cold snare polypectomy and recovered by suction. The polypectomy site appeared clean, without any sign of residual polyp nor significant bleeding. In the transverse colon was an approximately 4 or 5 mm polyp, which was removed by cold snare polypectomy and recovered by suction. The polypectomy site appeared clean, without any sign of residual polyp nor bleeding. At 20 cm was an approximately 10 mm polyp, which was removed by hot snare polypectomy and recovered by suction. The polypectomy site appeared clean, without any sign of residual polyp nor bleeding. I did not visualize any other polyps, colitis, nor angiodysplasia. There was a mild amount of sigmoid diverticulosis. In the rectum, scope was retroflexed visualizing internal hemorrhoids, but no other pathology. The rectal mucosa appeared normal. The scope was straightened and withdrawn from the patient. She tolerated the procedure well and was returned to the recovery area in stable condition. IMPRESSION: 1. Colon polyps. 2. Diverticulosis. 3. Internal hemorrhoids. PLAN: The results of the pathology will be checked. Given her age and these findings, I do not think she would need any further screening colonoscopies. She was advised not to use any aspirin or NSAIDs for 1 week. She will otherwise see me on a p.r.n. basis. MD SANYA Howard/FATOU / [phone]
== END 2023-06-22 12:22 | disposition home or self-care (01) ==
PROVIDERS: PCP Internal Medicine; Visit Provider Internal Medicine
PROC: 0DJD8ZZ Inspection of Lower Intestinal Tract, Via Natural or Artificial Opening Endoscopic (ICD-10-PCS; CPT 45378; principal; 2023-06-22 09:40)
DX: Z12.11 Encounter for screening for malignant neoplasm of colon (principal); D12.2 Benign neoplasm of ascending colon; D12.3 Benign neoplasm of transverse colon; D12.5 Benign neoplasm of sigmoid colon; K57.30 Diverticulosis of large intestine without perforation or abscess without bleeding; K64.8 Other hemorrhoids; J43.9 Emphysema, unspecified; E03.9 Hypothyroidism, unspecified; I10 Essential (primary) hypertension; E78.00 Pure hypercholesterolemia, unspecified; E11.9 Type 2 diabetes mellitus without complications; Z79.84 Long term (current) use of oral hypoglycemic drugs; Z79.899 Other long term (current) drug therapy
CPT/HCPCS: 45385; 82947; 88305

== ENCOUNTER 2023-11-05 08:59 | Outpatient (AMB) | payer OTHER, SELFPAY ==
--- NOTE | 2023-11-05 09:24 | MHC.OFFVIS ---
Intake Intake Visit Reasons: OV - left hip OA Intake Note: Veronica is a 78 year old female who presents today for a follow up for her left hip OA/ Trochanteric bursitis. Patient's granddaughter is stating that she is doing better. She states that she does at home exercise which gives her relief. Patient reports that she takes tylenol to help her with the pain temporarily. Allergies levofloxacin [From LEVAQUIN] Allergy (Intermediate, Verified 11/05/23 09:26) RASH ondansetron [From ZOFRAN] Allergy (Intermediate, Verified 11/05/23 09:26) HIVES Penicillins [PENICILLINS] Allergy (Intermediate, Verified 11/05/23 09:26) RASH hydromorphone [From DILAUDID] Allergy (Unknown, Verified 11/05/23 09:) Unknown tramadol [TRAMADOL] Allergy (Unknown, Verified 11/05/23 09:26) Unknown codeine [CODEINE] Adverse Reaction (Intermediate, Verified 11/05/23 09:26) N/V morphine [MORPHINE] Adverse Reaction (Intermediate, Verified 11/05/23 09:26) N/V Medication List - Last Reconciled 11/05/23 by Gabi Tobin MD acetaminophen 1,000 mg (2 x 500 mg) PO QID PRN ibuprofen 600 mg PO Q6H PRN levothyroxine 150 mcg PO DAILY lidocaine 4% 1 patch topical DAILY PRN metformin 1,000 mg PO BID metoprolol succinate ER 50 mg PO DAILY simvastatin 20 mg PO BEDTIME sitagliptin phosphate (Januvia) 100 mg PO DAILY zolpidem 5 mg PO BEDTIME HPI HPI Comments History of Present Illness Details Here with granddaughter Maegan who provided history. Started with left hip pain 1 1/2month ago. No falls. Acute onset. Patient was not sick at that time. She had also back pain, more left side, radiating to stomach and leg. She had gone to ED 4-5 times. Last ED visit, she was given prednisone. Finished 7 days and now she feels better, no pain. Abdomen CT done. She was prophylactically treated for UTI. Since the last visit, she has not had any severe pain like back in March 2023. No recent hospitalization, infection, falls. Her last pain episode was last month, resolved and treated with just Tylenol. Denies any current pain. If ever she would have pain, it would be more on left hip. Denies radicular symptoms on feet. [facility] Medical History Degenerative joint disease (DJD) of hip Erythrocytosis Diverticulosis Insomnia Diabetes Hypothyroid Hyperlipidemia HTN (hypertension) Surgical History History of esophagogastroduodenoscopy (EGD) H/O colonoscopy Social History (Updated 03/30/23 @ 23:22 by Sophia Henson DO) Alcohol intake: never Patient Tobacco Use Status: Never used Tobacco Physical Exam Constitutional: Patient appears to be in no acute distress, well nourished and well developed. Patient was appropriately conversant and oriented. MSK: Inspection reveals appropriate head and neck positioning. No specific abnormalities found on inspection of the spine and all extremities. No pain with palpation over the lumbar area. No pinpoint tenderness over spinous processes. Lumbar ROM was full. Mild tenderness on left greater trochanter. No tenderness in the right GT. SI Joint nontender. Neurological: Mood appears normal, good affect, and appropriate for the circumstances. Neurologic examination of the upper and lower extremities was nonfocal with intact sensation, muscle stretch reflexes and without focal motor deficits. Hernandez?s negative bilaterally. Gait is non-antalgic without loss of balance, but slow. Results Reviewed Results Reviewed: Ordering Physician: Gabi Nieto Date of Service: 05/07/23 Procedure(s): XR hip LT w PEL1V Accession Number(s): [id number] cc: Davonte Reid III, MD; Gabi Nieto~ EXAMINATION: XR HIP, LEFT WITH AP PELVIS CLINICAL INFORMATION: Osteoarthritis. COMPARISON: Radiographs dated 04/12/2020. TECHNIQUE: AP and frog-leg lateral views of the left hip are submitted, together with a frontal view the pelvis. FINDINGS: No fracture. Alignment is anatomic. The acetabular joint spaces are well-maintained. The femoral heads are smooth. No fracture or dislocation is seen. The bilateral sacroiliac joints are symmetric and well-maintained. The pubic symphysis is intact. There are pelvic phleboliths. The soft tissue planes are unremarkable. Incompletely characterized degenerative changes of the lumbar spine. XR/XR hip LT w PEL1V IMPRESSION: Normal left hip. Assessment & Plan Assessment & Plan (1) Trochanteric bursitis of left hip: Code(s): M70.62 - Trochanteric bursitis, left hip Plan She is doing well right now. X-ray actually was normal. If ever she has pain it would be left lateral hip or groin, and she has not had an episode since 1 month ago. If she would have an episode again, advised icing and gentle massage. May take Tylenol as she was previously taken. She will ask PCP for further refills if needed. Call if there is any severe episodes. Assessment and plan discussed with patient, and patient was agreeable. All questions were answered thoroughly. Follow-up in 6 months. Gabi Tobin MD, ANNALEE Board Certified, [place] [employer] and [employer] (ABPMR) Board Certified, [place] [employer] Electro[employer] (ABEM) Coding Level of Care Code Est Pt Level 3 (16938) Diagnoses Trochanteric bursitis of left hip M70.62
== END 2023-11-05 09:48 | disposition home or self-care (01) ==
PROVIDERS: PCP Internal Medicine; Visit Provider Physical Medicine & Rehabilitation
DX: M70.62 Trochanteric bursitis, left hip (principal)
CPT/HCPCS: 99213

== ENCOUNTER → 2023-11-05 08:59 | Outpatient (BNVA) | payer OTHER, SELFPAY | PROVIDERS: PCP Internal Medicine; Visit Provider Physical Medicine & Rehabilitation | DX: M70.62 Trochanteric bursitis, left hip (principal); M16.12 Unilateral primary osteoarthritis, left hip; Z79.899 Other long term (current) drug therapy | CPT/HCPCS: 99212 ==

== ENCOUNTER 2024-06-02 10:50 | Outpatient (AMB) | payer OTHER, SELFPAY ==
--- NOTE | 2024-06-02 10:51 | MHC.OFFVIS ---
Vital Signs 06/02/24 11:17 Height 5 ft 2 in Weight 150 lb BMI 27.4 Intake Visit Reasons: OV - left hip OA-follow up Intake Note: Veronica is a 78 year old female who presents today for a follow up visit for her left hip pain. Patient reports she has intermittent pain and tightness in her left hip. Prolonged sitting and walking exacerbate her pain. She says she does not usually do much at home so she does not have episodes too often and not as severe. Tylenol does offer her mild relief. Patient informed me she did not need an translator and interpreter today. Allergies levofloxacin [From LEVAQUIN] Allergy (Intermediate, Verified 06/02/24 11:16) RASH ondansetron [From ZOFRAN] Allergy (Intermediate, Verified 06/02/24 11:16) HIVES Penicillins [PENICILLINS] Allergy (Intermediate, Verified 06/02/24 11:16) RASH hydromorphone [From DILAUDID] Allergy (Unknown, Verified 06/02/24 11:16) Unknown tramadol [TRAMADOL] Allergy (Unknown, Verified 06/02/24 11:16) Unknown codeine [CODEINE] Adverse Reaction (Intermediate, Verified 06/02/24 11:16) N/V morphine [MORPHINE] Adverse Reaction (Intermediate, Verified 06/02/24 11:16) N/V Medication List - Last Reconciled 06/02/24 by Gabi Tobin MD acetaminophen 1,000 mg (2 x 500 mg) PO QID PRN ibuprofen 600 mg PO Q6H PRN levothyroxine 150 mcg PO DAILY lidocaine 4% 1 patch topical DAILY PRN metformin 1,000 mg PO BID metoprolol succinate ER 50 mg PO DAILY simvastatin 20 mg PO BEDTIME sitagliptin phosphate (Januvia) 100 mg PO DAILY zolpidem 5 mg PO BEDTIME HPI Comments Details: Started seeing patient 05/13/2023 after she had severe left hip pain that summer. She has not had any severe pain like back in March 2023. Denies recent hospitalization, infection, falls. Her last pain episode was 2 weeks ago, resolved and treated with just Tylenol. Denies any current pain. Denies lower back pain. Denies groin pain. Denies numbness. Denies weakness. [facility] Medical History Degenerative joint disease (DJD) of hip Erythrocytosis Diverticulosis Insomnia Diabetes Hypothyroid Hyperlipidemia HTN (hypertension) Surgical History History of esophagogastroduodenoscopy (EGD) H/O colonoscopy Social History Alcohol intake: never Patient Tobacco Use Status: Never used Tobacco Physical Exam Vital Signs: BMI result Body Mass Index 27.4 Constitutional: Patient appears to be in no acute distress, well nourished and well developed. Patient was appropriately conversant and oriented. MSK: Inspection reveals appropriate head and neck positioning. No specific abnormalities found on inspection of the spine and all extremities. No pain with palpation over the lumbar area. No pinpoint tenderness over spinous processes. Lumbar ROM was full. Neurological: Neurologic examination of the upper and lower extremities was nonfocal with intact sensation, muscle stretch reflexes and without focal motor deficits. Gait is non-antalgic without loss of balance, but slow. Results Reviewed Results Reviewed: Ordering Physician: Gabi Nieto Date of Service: 05/07/23 Procedure(s): XR hip LT w PEL1V Accession Number(s): [id number] cc: Davonte Reid III, MD; Gabi Nieto~ EXAMINATION: XR HIP, LEFT WITH AP PELVIS CLINICAL INFORMATION: Osteoarthritis. COMPARISON: Radiographs dated 04/12/2020. TECHNIQUE: AP and frog-leg lateral views of the left hip are submitted, together with a frontal view the pelvis. FINDINGS: No fracture. Alignment is anatomic. The acetabular joint spaces are well-maintained. The femoral heads are smooth. No fracture or dislocation is seen. The bilateral sacroiliac joints are symmetric and well-maintained. The pubic symphysis is intact. There are pelvic phleboliths. The soft tissue planes are unremarkable. Incompletely characterized degenerative changes of the lumbar spine. XR/XR hip LT w PEL1V IMPRESSION: Normal left hip. Assessment & Plan Assessment & Plan (1) Trochanteric bursitis of left hip: Code(s): M70.62 - Trochanteric bursitis, left hip Plan She is doing well right now. No abnormality on exam. Last pain episode 2 weeks ago, resolved with Tylenol. Assessment and plan discussed with patient, and patient was agreeable. All questions were answered thoroughly. Follow-up as needed. Gabi Tobin MD, ANNALEE Board Certified, [place] [employer] and [employer] (ABPMR) Board Certified, [place] [employer] (ABEM) Coding Level of Care Code Est Pt Level 3 (94647) Diagnoses Trochanteric bursitis of left hip M70.62
[2024-06-02 11:17] VITALS: BMI 27.4
== END 2024-06-02 11:39 | disposition home or self-care (01) ==
PROVIDERS: PCP Internal Medicine; Visit Provider Physical Medicine & Rehabilitation
DX: M70.62 Trochanteric bursitis, left hip (principal)
CPT/HCPCS: 99213

== ENCOUNTER → 2024-06-02 10:50 | Outpatient (BNVA) | payer OTHER, SELFPAY | PROVIDERS: PCP Internal Medicine; Visit Provider Physical Medicine & Rehabilitation | DX: M70.62 Trochanteric bursitis, left hip (principal); M16.12 Unilateral primary osteoarthritis, left hip | CPT/HCPCS: 99212 ==

== ENCOUNTER 2024-06-14 08:01 | Emergency (ER) | payer OTHER, SELFPAY ==
--- NOTE | ~2024-06-14 | XR_ITS ---
EXAMINATION: XR CHEST 2 VIEW CLINICAL INFORMATION: Cough, chest pain COMPARISON: 10/01/2019 TECHNIQUE: PA and lateral views of the chest obtained. FINDINGS: The lungs are clear. There are no pleural effusions. The cardiomediastinal silhouette is normal. XR/XR chest 2V IMPRESSION: No acute cardiopulmonary disease. Electronically signed by: Jozef Lester MD 06/14/2024 09:37 AM EDT
--- NOTE | 2024-06-14 08:03 | ECG_ITS ---
Test Reason : CHEST PAIN Blood Pressure : / mmHG Vent. 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
[2024-06-14 08:27] VITALS: BP 154/62; PULSE 72; RESP 16; TEMP 37.4; O2SAT 94; BMI 25.6
[2024-06-14 09:09] LABS: IDNOW Serial# 08D9AD1C; Strep A Nucleic Acid Negative (Negative)
[2024-06-14 09:24] LABS: Influenza A PCR POSITIVE (Negative); Influenza B PCR NEGATIVE (Negative); Resp Syncy Virus RNA Qual PCR NEGATIVE (Negative); SARS COV2 PCR INHOUSE NEGATIVE (Negative)
[2024-06-14] MEDS: Benzonatate 100 MG CAPSULE PO (10:12)
[2024-06-14] MEDS: Lidocaine HCl Viscous 2 % 15 ML SOLUTION 5 ML MUCOUS MEM (10:12)
--- NOTE | 2024-06-14 10:17 | ED.URI ---
HPI - URI/Sore Throat General Chief Complaint: Upper Respiratory Symptoms Stated Complaint: Chest pain, body aches Time Seen by Provider: 06/14/24 09:05 Source: patient, RN notes reviewed and old records reviewed Mode of arrival: ambulatory History of Present Illness ED Provider: Cherry Hammer PA-C HPI Narrative: 79-year-old female with a past medical history diverticulosis, insomnia, diabetes, hypothyroid, hyperlipidemia, HTN, presenting to the ED complaining of dry cough, chest discomfort with cough, SOB, headache, sore throat, myalgias, congestion x 2 days. Also reports diarrhea. Denies fever, sick contacts, travel, abdominal pain, decreased p.o. intake Related Data Home Medications ?Medication ?Instructions ?Recorded ?Confirmed levothyroxine 150 mcg tablet 150 mcg PO DAILY 06/18/23 06/02/24 metformin 1,000 mg tablet 1,000 mg PO BID 06/18/23 06/02/24 metoprolol succinate 50 mg 50 mg PO DAILY 06/18/23 06/02/24 tablet,extended release 24 hr simvastatin 20 mg tablet 20 mg PO BEDTIME 06/18/23 06/02/24 sitagliptin phosphate 100 mg 100 mg PO DAILY 06/18/23 06/02/24 tablet (Januvia) zolpidem 5 mg tablet 5 mg PO BEDTIME 06/18/23 06/02/24 Previous Rx's ?Medication ?Instructions ?Recorded acetaminophen 500 mg tablet 1,000 mg (2 x 500 mg) PO QID PRN 02/23/22 pain #30 tabs ibuprofen 600 mg tablet 600 mg PO Q6H PRN fever or pain 03/28/23 #30 tabs lidocaine 4 % topical patch 1 patch topical DAILY PRN pain #30 03/28/23 ea albuterol sulfate 90 mcg/actuation 2 puff inhalation Q4-6H PRN 06/14/24 aerosol inhaler shortness of breath or wheezing #6.7 grams benzonatate 100 mg capsule 100 mg PO TID PRN cough #14 caps 06/14/24 Allergies Allergy/AdvReac Type Severity Reaction Status Date / Time levofloxacin [From LEVAQUIN] Allergy Intermediate RASH Verified 06/14/24 08:27 ondansetron [From ZOFRAN] Allergy Intermediate HIVES Verified 06/14/24 08:27 Penicillins [PENICILLINS] Allergy Intermediate RASH Verified 06/14/24 08:27 hydromorphone [From DILAUDID] Allergy Unknown Unknown Verified 06/14/24 08:27 tramadol [TRAMADOL] Allergy Unknown Unknown Verified 06/14/24 08:27 codeine [CODEINE] AdvReac Intermediate N/V Verified 06/14/24 08:27 morphine [MORPHINE] AdvReac Intermediate N/V Verified 06/14/24 08:27 Review of Systems Review of Systems: Yes all other systems are reviewed and are negative Constitutional: Constitutional: Reports as per [facility] Past Medical History Attestation statement: The following information was validated with the patient. Source: old records reviewed Medical History Degenerative joint disease (DJD) of hip Erythrocytosis Diverticulosis Insomnia Diabetes Hypothyroid Hyperlipidemia HTN (hypertension) Surgical History History of esophagogastroduodenoscopy (EGD) H/O colonoscopy Social History Social History Alcohol intake: never Patient Tobacco Use Status: Never used Tobacco Advance Directives: No Advance Directives Information Provided: Yes Do you have a plan to hurt others: No Plan Physical Exam Vital Signs: Vital Signs: Last Vital Signs Temp 99.4 F 06/14/24 11:27 Pulse 72 06/14/24 11:27 Resp 16 06/14/24 11:27 BP 154/62 H 06/14/24 11:27 Pulse Ox 94 06/14/24 11:27 O2 Del Method Room Air 06/14/24 11:27 BMI result Body Mass Index 25.6 Const: General: cooperative, healthy appearing and no acute distress Orientation/consciousness: patient oriented x3 Limitations: no limitations HEENT: Head: Yes normal to inspection and Yes atraumatic Ears: hearing grossly normal bilaterally General nose exam: Normal external nose present Face and sinus: Yes normal facial exam Mouth: no drooling Throat: Yes posterior oropharynx normal, Yes uvula midline and No peritonsillar mass Eyes: General: appearance normal, both eyes and all related structures EOM: EOMs intact bilaterally Neck: Neck: Yes normal visual inspection and Yes no meningeal signs Resp: Effort & Inspection: normal respiratory effort, no respiratory distress and no stridor Auscultation: clear to auscultation bilaterally, no crackles and no wheezes Cardio: Rate: regular rate Heart sounds: S1 normal heart sound present and S2 normal heart sound present Skin: Rashes: no rashes Wounds: no wounds Neuro: General: patient oriented x3, tone normal and no meningeal signs Cranial nerves: Yes CN's II-XII intact bilaterally Gait exam (Neuro): Normal gait present Extrem: General: Yes normal to inspection, Yes no pedal edema and Yes no calf tenderness Course Course Course Narrative: -1021--influenza a positive >> offered/discussed Tamiflu patient however declined. -CXR WNL Results discussed with patient including worrisome signs and symptoms and strict return precautions, and when to return to the emergency department. They verbalized understanding and feel safe for discharge at this time. Medications Administered Discontinued Medications Generic Name Dose Route Start Last Admin Trade Name Freq PRN Reason Stop Dose Admin Benzonatate 100 mg 06/14/24 09:50 06/14/24 10:12 Benzonatate 100 Mg Capsule PO 06/14/24 09:51 100 mg ONCE ONE Administration Lidocaine HCl 5 ml 06/14/24 09:50 06/14/24 10:12 Lidocaine Hcl Viscous 2 % 15 Ml Solution MUCOUS MEM 06/14/24 09:51 5 ml ONCE ONE Administration Medical Decision Making Medical Decision Making [facility] Narrative: 79-year-old female with a past medical history diverticulosis, insomnia, diabetes, hypothyroid, hyperlipidemia, HTN, presenting to the ED complaining of dry cough, chest discomfort with cough, SOB, headache, sore throat, myalgias, congestion x 2 days. On exam vital signs stable, low-grade temp 99.4 degrees, NAD, nontoxic appearing, lungs CTA, talking complete sentences, oropharynx WNL. Concern for viral illness vs pneumonia vs bronchitis vs strep pharyngitis. Low suspicion for ACS/PE or DVT Plan: EKG, Viral testing, rapid strep, CXR Please refer to course for remaining clinical decision making, interpretation of labs/imaging results, and discussions with consultants and/or family members. Differential Diagnosis Differential Diagnoses: The differential diagnosis associated with the presentation includes As above Lab Data [facility] Lab Attestation statement: I reviewed the patient's lab results. Labs: Lab Results 06/14/24 Range/Units 08:37 Influenza Type A (PCR) POSITIVE A (Negative) Influenza Type B (PCR) NEGATIVE (Negative) RSV RNA Qual (PCR) NEGATIVE (Negative) SARS-CoV-2 RNA (RT-PCR) NEGATIVE (Negative) S. pyogenes GrpA PÉREZ Negative (Negative) Independent Interpretation I performed an independent interpretation of an: EKG Radiology Impression Discussion of test interpretation with radiology: I have reviewed the radiologist's reading. Independent Historian Clinical information obtained from an independent historian. History obtained from or confirmed by: Spouse External Record Review External record reviewed: Inpatient record, Office record, Outpatient record, Prior outpatient labs, Prior outpatient radiology, Primary care record and Outside ED record Tests considered The following testing was considered but not selected: As above Chronic Conditions Patient?s care impacted by: Other Discharge Plan Discharge Clinical Impression: Influenza A Patient Disposition: Home, Self-Care Instructions: Influenza (DC) Additional Instructions: You have the flu. This is contagious. Cover your mouth, wash her hands, wear a mask Your x-ray is unremarkable. No antibiotics are indicated at this time Make sure you are staying hydrated. Drink plenty of fluids. Rest Alternate Tylenol and Motrin at home as needed for body aches and fever Follow-up with your doctor. If symptoms persist or worsen return to the emergency department -Sailaja Pressley for cough, take as needed -use albuterol inhaler as needed for shortness of breath/wheezing *If you are a child & not tolerating liquid or urinating for more than 6 hours, or fevers are uncontrolled with medications at home, return to the emergency department* Prescriptions: New benzonatate 100 mg capsule 100 mg PO TID PRN (Reason: cough) Qty: 14 0RF albuterol sulfate 90 mcg/actuation HFA aerosol inhaler 2 puff inhalation Q4-6H PRN (Reason: shortness of breath or wheezing) Qty: 6.7 0RF No Action acetaminophen 500 mg tablet 1,000 mg PO QID PRN (Reason: pain) Qty: 30 0RF metoprolol succinate 50 mg tablet extended release 24 hr 50 mg PO DAILY simvastatin 20 mg tablet 20 mg PO BEDTIME metformin 1,000 mg tablet 1,000 mg PO BID levothyroxine 150 mcg tablet 150 mcg PO DAILY zolpidem 5 mg tablet 5 mg PO BEDTIME Januvia 100 mg tablet 100 mg PO DAILY ibuprofen 600 mg tablet 600 mg PO Q6H PRN (Reason: fever or pain) Qty: 30 0RF lidocaine 4 % adhesive patch,medicated 1 patch topical DAILY PRN (Reason: pain) Qty: 30 0RF Rx Instructions: Apply at the painful area for 12 hours a day Referrals: Davonte Reid III, MD [Primary Care Provider] - 1 week Interventions: ED Discharge Assessment Last Done: 06/14/24 11:27 Discharge Date/Time: 06/14/24 11:27 Print Language: Khmer
[2024-06-14 11:27] VITALS: BP 154/62; PULSE 72; RESP 16; TEMP 37.4; O2SAT 94
== END 2024-06-14 11:27 | disposition home or self-care (01) ==
PROVIDERS: Emergency Provider Emergency Medicine; PCP Internal Medicine
DX: R07.89 Other chest pain (principal); M79.10 Myalgia, unspecified site; I10 Essential (primary) hypertension; R05.9 Cough, unspecified; R06.02 Shortness of breath; Z03.818 Encounter for observation for suspected exposure to other biological agents ruled out; Z79.899 Other long term (current) drug therapy
CPT/HCPCS: 0241U; 71046; 87651; 93005; 99283

== ENCOUNTER → 2024-06-14 08:03 | Outpatient (BNV) | payer OTHER, SELFPAY | PROVIDERS: Emergency Provider Emergency Medicine; PCP Internal Medicine; Visit Provider Internal Medicine Cardiovascular Disease | DX: R07.9 Chest pain, unspecified (principal); R94.31 Abnormal electrocardiogram [ECG] [EKG] | CPT/HCPCS: 93010 ==

== ENCOUNTER 2024-09-19 09:01 | Emergency (ER) | payer OTHER, SELFPAY ==
--- NOTE | ~2024-09-19 | XR_ITS ---
EXAMINATION: XR CHEST CLINICAL INFORMATION: chest pain, cough COMPARISON: X-ray dated June 14, 2024. TECHNIQUE: 2 views of the chest were obtained. FINDINGS: No consolidation, pleural effusion or pneumothorax. Cardiomediastinal silhouette demonstrates calcified plaque thoracic aortic arch. Multilevel thoracic spondylosis. S-shaped curvature of the thoracolumbar spine. Vascular clips in the right upper quadrant abdomen likely prior laparoscopic cholecystectomy. XR/XR chest 2V IMPRESSION: No acute airspace disease. Atherosclerosis disease, thoracic aorta. Electronically signed by: Jeff Dorsey MD 09/19/2024 10:43 AM [facility]
[2024-09-19 09:27] VITALS: BP 175/75; PULSE 72; RESP 16; TEMP 37.1; O2SAT 97; BMI 25.6
--- NOTE | 2024-09-19 09:31 | ECG_ITS ---
Test Reason : cp Blood Pressure : */* mmHG Vent. Rate : 77 BPM Atrial Rate : 77 BPM P-R Int : 168 ms QRS Dur : 66 ms QT Int : 388 ms P-R-T Axes : 41 -7 77 degrees QTcB Int : 439 ms Normal sinus rhythm Nonspecific T wave abnormality Abnormal ECG When compared with ECG of 14-Jun-2024 08:07, No significant change was found Referred By: Generic ED Physician Electronically Signed By: ARIMN CASH
[2024-09-19 09:50] LABS: MANUAL DIFF FLAG NO
[2024-09-19 09:52] LABS: Basophils Absolute Auto 0.1 X10*3/uL (0.0-0.2); Basophils Percent Auto 0.7 % (0-2); Eosinophils Absolute Auto 0.1 X10*3/uL (0.0-0.4); Eosinophils Percent Auto 1.1 % (0-4); Hematocrit 40.3 % (37.0-47.0); Hemoglobin 13.8 g/dl (12.0-16.0); Imm Gran Abs Auto 0.04 X10*3/uL (0.00-0.03); Imm Gran Pct Auto 0.4 % (0.0-0.4); Lymphocytes Absolute Auto 1.3 X10*3/uL (1.2-4.9); Lymphocytes Percent Auto 14.7 % (20-40); Mean Corpuscular HGB Conc 34.2 g/dl (31.0-35.0); Mean Corpuscular Hemoglobin 29.6 pg (27.0-33.0); Mean Corpuscular Volume 86.5 fL (80.0-98.0); Mean Platelet Volume 11.1 fL (9.4-12.3); Monocytes Absolute Auto 0.7 X10*3/uL (0.1-1.2); Neutrophils Absolute Auto 6.8 x10*3/uL (2.0-8.3); Neutrophils Percent Auto 75.1 % (45-73); Platelet Count 210 X10*3/uL (160-400); Red Blood Count 4.66 X10*6/uL (4.20-5.50); Red Cell Distribution Width 13.2 % (11.0-16.0)
[2024-09-19 10:06] LABS: Alanine Aminotransferase 53 U/L (0-31); Alkaline Phosphatase 64 U/L (39-117); Anion Gap 13 (12-20); Aspartate Amino Transferase 55 U/L (5-31); Bilirubin Total 0.3 mg/dL (0.0-1.0); Blood Urea Nitrogen 14 mg/dL (9-16); Calcium 8.8 mg/dL (8.4-10.2); Carbon Dioxide 20 mmol/L (22-29); Chloride 107 mmol/L (96-108); Creatinine Clr Calc Pharmacy 33.7; Estimated Glomerular Filt Rate 43; Glucose Random 188 mg/dL (60-115); Potassium 3.8 mmol/L (3.3-5.1); Sodium 136 mmol/L (135-145); Total Protein 7.8 g/dL (6.5-8.0)
[2024-09-19 10:16] LABS: Troponin-I High Sensitivity < 2.7 ng/L (<3.5-17.0)
[2024-09-19 10:38] LABS: Influenza A PCR NEGATIVE (Negative); Influenza B PCR POSITIVE (Negative); Resp Syncy Virus RNA Qual PCR NEGATIVE (Negative); SARS COV2 PCR INHOUSE NEGATIVE (Negative)
--- NOTE | 2024-09-19 11:05 | ED_ITS ---
HPI - General Adult General Chief complaint: General Medical Stated complaint: asthma Time Seen by Provider: 09/19/24 11:05 Source: patient Mode of arrival: ambulatory Limitations: no limitations History of Present Illness ED Provider: An Hood PA-C HPI narrative: Patient is a 79 year old assigned female at with a history of DM, HTN, HLD, and DJD presenting to the emergency department today with body aches, fever, chills, and chest pain. Patient states that she has felt generally unwell over the last 2 weeks but worse over the last few days. Patient denies any dizziness, lightheadedness, abdominal pain, nausea, vomiting, blurry vision, double vision, loss of vision, difficulty breathing, shortness of breath, back pain, night sweats, pain with urination, increased urinary frequency, increased urinary urgency, blood in her urine or stool, syncope or a near syncopal episode, recent trauma or falls, bowel incontinence, bladder incontinence, or any other complaints at this time. Onset (ago): week(s) (2) Relieving factors: none Exacerbating factors: none Associated symptoms: chest pain and fever/chills Treatments prior to arrival: none Related Data Home Medications ?Medication ?Instructions ?Recorded ?Confirmed levothyroxine 150 mcg tablet 150 mcg PO DAILY 06/18/23 06/02/24 metformin 1,000 mg tablet 1,000 mg PO BID 06/18/23 06/02/24 metoprolol succinate 50 mg 50 mg PO DAILY 06/18/23 06/02/24 tablet,extended release 24 hr simvastatin 20 mg tablet 20 mg PO BEDTIME 06/18/23 06/02/24 sitagliptin phosphate 100 mg 100 mg PO DAILY 06/18/23 06/02/24 tablet (Januvia) zolpidem 5 mg tablet 5 mg PO BEDTIME 06/18/23 06/02/24 Previous Rx's ?Medication ?Instructions ?Recorded acetaminophen 500 mg tablet 1,000 mg (2 x 500 mg) PO QID PRN 02/23/22 pain #30 tabs ibuprofen 600 mg tablet 600 mg PO Q6H PRN fever or pain 03/28/23 #30 tabs lidocaine 4 % topical patch 1 patch topical DAILY PRN pain #30 03/28/23 ea albuterol sulfate 90 mcg/actuation 2 puff inhalation Q4-6H PRN 06/14/24 aerosol inhaler shortness of breath or wheezing #6.7 grams benzonatate 100 mg capsule 100 mg PO TID PRN cough #14 caps 06/14/24 Allergies Allergy/AdvReac Type Severity Reaction Status Date / Time levofloxacin [From LEVAQUIN] Allergy Intermediate RASH Verified 09/19/24 09:31 ondansetron [From ZOFRAN] Allergy Intermediate HIVES Verified 09/19/24 09:31 Penicillins [PENICILLINS] Allergy Intermediate RASH Verified 09/19/24 09:31 hydromorphone [From DILAUDID] Allergy Unknown Unknown Verified 09/19/24 09:31 tramadol [TRAMADOL] Allergy Unknown Unknown Verified 09/19/24 09:31 codeine [CODEINE] AdvReac Intermediate N/V Verified 09/19/24 09:31 morphine [MORPHINE] AdvReac Intermediate N/V Verified 09/19/24 09:31 Review of Systems 2 Constitutional: Constitutional: Reports no additional constitutional complaints, Reports body ache(s), Reports chills, Reports fever(s) and Denies night sweats Eyes: Eyes: Reports no additional eye complaints, Denies blurry vision, Denies change in vision, Denies diplopia, Denies eye discharge, Denies loss of vision and Denies eye pain ENT: Denies dizziness Cardiovascular: Cardiovascular: Reports no additional cardiovascular complaints, Reports chest pain, Denies lightheadedness, Denies Loss of Consciousness and Denies dyspnea Respiratory: Respiratory: Reports no additional respiratory complaints, Reports cough and Denies dyspnea Gastrointestinal: Gastrointestinal: Reports no additional gastrointestinal complaints, Denies abdominal pain, Denies melena, Denies hematochezia, Denies change in bowel habits and Denies change in stool character Genitourinary: Genitourinary: Denies hematuria, Denies urinary frequency, Denies dysuria, Denies urinary incontinence, Denies urinary hesitancy and Denies urinary urgency Musculoskeletal: Musculoskeletal: Reports no additional musculoskeletal complaints, Denies numbness and Denies tingling Neurologic: Denies dizziness, Denies loss of vision, Denies numbness and Denies tingling Psychiatric: Psychiatric: Reports no additional psychiatric complaints Endocrine: Endocrine: Reports no additional endocrine complaints Hematologic/Lymphatic: Hematologic/Lymphatic: Reports no additional hematologic/lymphatic complaints Allergic/Immunologic: Allergic/Immunologic: Reports no additional allergic/immunologic complaints PMFSH Past Medical History Attestation statement: The following information was validated with the patient. Source: old records reviewed and nursing notes reviewed Medical History Degenerative joint disease (DJD) of hip Erythrocytosis Diverticulosis Insomnia Diabetes Hypothyroid Hyperlipidemia HTN (hypertension) Surgical History History of esophagogastroduodenoscopy (EGD) H/O colonoscopy Social History Social History Alcohol intake: never Patient Tobacco Use Status: Never used Tobacco Physical Exam ED Vital Signs: Vital Signs - 24 hr 09/19/24 09:27 Temperature 98.7 F Pulse Rate 72 Respiratory Rate 16 Blood Pressure 175/75 H Pulse Oximetry 97 Oxygen Delivery Method Room Air BMI result Body Mass Index 25.6 Const General: cooperative, no acute distress, alert and awake Nutritional Appearance: well nourished Orientation/consciousness: patient oriented x3 Limitations: no limitations HENMT Head: Yes normal to inspection and Yes atraumatic Ears: hearing grossly normal bilaterally and external ears normal General nose exam: Normal external nose present, no nasal discharge noted and no epistaxis Face and sinus: Yes normal facial exam, No abrasion and No laceration Mouth: Normal oral and palatal mucosa present, no drooling and no muffled voice Eyes General: appearance normal, both eyes and all related structures Periorbital: periorbital findings normal Eyelids: Yes eyelids normal Conjunctivae: conjunctivae normal Pupils: Equal, round and reactive pupils present EOM: EOMs intact bilaterally Neck Neck: Yes normal visual inspection, Yes full ROM and Yes no lymphadenopathy Chest Chest palpation & inspection: normal inspection of the chest Resp Effort & Inspection: normal respiratory effort and able to speak in complete sentences GI Inspection: Yes normal to inspection Neuro General: patient oriented x3 and moves all extremities Cranial nerves: Yes Equal, round and reactive pupils present Cognition (Neuro): normal cognition Extrem General: Yes normal to inspection, Yes full ROM and Yes capillary refill normal Psych Appearance: grossly normal Mental Status: mental status grossly normal Affect: normal affect Attitude: cooperative Thought process: Normal thought process present Thought content: Normal thought content present Insight: Good insight present (Psych) Medical Decision Making Medical Decision Making MDM Narrative: Patient is a 79 year old assigned female at with a history of DM, HTN, HLD, and DJD presenting to the emergency department today with body aches, fever, chills, and chest pain. Patient's physical exam was unremarkable. Patient's blood work was unremarkable. Patient's EKG was unremarkable. Patient's chest x-ray showed no acute process. Patient's influenza test was positive. I explained my physical exam findings as well as all test results to the patient. I answered all questions asked by the patient. I stressed the importance of the patient taking her medication as directed (either prescribed or as the over the counter packaging recommends). I stressed the importance of the patient following up with her primary care provider. I stressed the importance of the patient returning to the emergency department immediately if her symptoms were to worsen or if she were to develop any dizziness, shortness of breath, difficulty breathing, chest pain, blurry vision, loss of vision, nausea, vomiting, abdominal pain, fever, chills, back pain, or any other complaints. Patient verbalized agreement and understanding with this treatment plan and discharge. Differential Diagnosis Differential Diagnoses: The differential diagnosis associated with the presentation includes Influenza COVID-19 PNA Viral illness Admission/Observation Consideration of admission/observation: Escalation of care including admission/observation considered Patient would have been admitted to the hospital had her work up had any findings where hospital admission was appropriate and her clinical presentation warranted hospital admission. Lab Data [facility] Lab Attestation statement: I reviewed the patient's lab results. My interpretation of these results are in the [facility] Rationale portion of this note. 09/19/24 09:47 09/19/24 09:47 Labs: Lab Results 09/19/24 Range/Units 09:47 WBC 9.0 (4.8-10.8) X10*3/uL RBC 4.66 (4.20-5.50) X10*6/uL Hgb 13.8 (12.0-16.0) g/dl Hct 40.3 (37.0-47.0) % MCV 86.5 (80.0-98.0) fL MCH 29.6 (27.0-33.0) pg MCHC 34.2 (31.0-35.0) g/dl RDW 13.2 (11.0-16.0) % Plt Count 210 (160-400) X10*3/uL MPV 11.1 (9.4-12.3) fL Immature Gran % (Auto) 0.4 (0.0-0.4) % Neut % (Auto) 75.1 H (45-73) % Lymph % (Auto) 14.7 L (20-40) % Winston % (Auto) 8.0 (2-11) % Eos % (Auto) 1.1 (0-4) % Baso % (Auto) 0.7 (0-2) % Lymph # (Auto) 1.3 (1.2-4.9) X10*3/uL Winston # (Auto) 0.7 (0.1-1.2) X10*3/uL Eos # (Auto) 0.1 (0.0-0.4) X10*3/uL Baso # (Auto) 0.1 (0.0-0.2) X10*3/uL Abs Immat Gran (auto) 0.04 H (0.00-0.03) X10*3/uL Absolute Neuts (auto) 6.8 (2.0-8.3) x10*3/uL Absolute Nucleated RBC 0.000 (0.0-0.012) X10*3/uL Nucleated RBC % (auto) 0.0 (0.0-0.2) /100WBC Sodium 136 (135-145) mmol/L Potassium 3.8 (3.3-5.1) mmol/L Chloride 107 (96-108) mmol/L Carbon Dioxide 20 L (22-29) mmol/L Anion Gap 13 (12-20) BUN 14 (9-16) mg/dL Creatinine 1.20 (0.5-1.4) mg/dL Estim Creat Clear Calc 33.7 Estimated GFR 43 Random Glucose 188 H (60-115) mg/dL Calcium 8.8 D (8.4-10.2) mg/dL Total Bilirubin 0.3 (0.0-1.0) mg/dL AST 55 H (5-31) U/L ALT 53 H (0-31) U/L Alkaline Phosphatase 64 (39-117) U/L Troponin I High Sens < 2.7 (<3.5-17.0) ng/L Total Protein 7.8 (6.5-8.0) g/dL Albumin 4.0 (3.5-5.0) g/dL Influenza Type A (PCR) NEGATIVE (Negative) Influenza Type B (PCR) POSITIVE A (Negative) RSV RNA Qual (PCR) NEGATIVE (Negative) SARS-CoV-2 RNA (RT-PCR) NEGATIVE (Negative) Independent Interpretation I performed an independent interpretation of an: EKG and Plain X-Ray Interpretation: My interpretation is in agreement with the radiologist's impression of this imaging study. L EXAMINATION: XR CHEST CLINICAL INFORMATION: chest pain, cough COMPARISON: X-ray dated June 14, 2024. TECHNIQUE: 2 views of the chest were obtained. FINDINGS: No consolidation, pleural effusion or pneumothorax. Cardiomediastinal silhouette demonstrates calcified plaque thoracic aortic arch. Multilevel thoracic spondylosis. S-shaped curvature of the thoracolumbar spine. Vascular clips in the right upper quadrant abdomen likely prior laparoscopic cholecystectomy. XR/XR chest 2V IMPRESSION: No acute airspace disease. Atherosclerosis disease, thoracic aorta. Electronically signed by: Jeff Dorsey MD 09/19/2024 10:43 AM EST Dictated By: Jeff Murcia MD Signed By: Electronically signed by Jeff Bhatt MD 09/19/24 1043 Vent. Rate: 77 BPM Atrial Rate: 77 BPM P-R Int: 168 ms QRS Dur: 66 ms QT Int: 388 ms P-R-T Axes: 41 -7 77 degrees QTcB Int: 439 ms Normal sinus rhythm Nonspecific T wave abnormality When compared with ECG of 14-Jun-2024 08:07, No significant change was found DD/ 0940 Radiology Impression Discussion of test interpretation with radiology: I have reviewed the radiologist's reading. Discharge Plan Discharge Clinical Impression: Influenza Patient Disposition: Home, Self-Care Instructions: Influenza (DC) Additional Instructions: Follow up with your primary care provider. Return to the emergency department immediately if your symptoms worsen or if you develop any dizziness, shortness of breath, difficulty breathing, chest pain, blurry vision, loss of vision, nausea, vomiting, abdominal pain, fever, chills, back pain, or any other complaints. Prescriptions: No Action acetaminophen 500 mg tablet 1,000 mg PO QID PRN (Reason: pain) Qty: 30 0RF metoprolol succinate 50 mg tablet extended release 24 hr 50 mg PO DAILY simvastatin 20 mg tablet 20 mg PO BEDTIME metformin 1,000 mg tablet 1,000 mg PO BID levothyroxine 150 mcg tablet 150 mcg PO DAILY zolpidem 5 mg tablet 5 mg PO BEDTIME Januvia 100 mg tablet 100 mg PO DAILY ibuprofen 600 mg tablet 600 mg PO Q6H PRN (Reason: fever or pain) Qty: 30 0RF lidocaine 4 % adhesive patch,medicated 1 patch topical DAILY PRN (Reason: pain) Qty: 30 0RF Rx Instructions: Apply at the painful area for 12 hours a day benzonatate 100 mg capsule 100 mg PO TID PRN (Reason: cough) Qty: 14 0RF albuterol sulfate 90 mcg/actuation HFA aerosol inhaler 2 puff inhalation Q4-6H PRN (Reason: shortness of breath or wheezing) Qty: 6.7 0RF Referrals: Davonte Reid III, MD [Primary Care Provider] - Discharge Date/Time: 09/19/24 11:09 Print Language: Mauritian
--- NOTE | 2024-09-19 11:09 | PC.NURSE ---
discharged by provider
--- OUTSIDE RECORDS SUMMARY | 2024-09-19 14:18 | XMS_ITS ---
Author Organization [facility] Address [address] [place] [address] Care Team Providers Care Automotive Tire Technician Name Role Phone Davonte Reid MD Primary Care Provider Jake Wilcox [phone] REASON FOR VISIT colonoscopy Encounters Encounter Location Date Provider Diagnosis [facility] [address] [place] [address] 03/26/2023 Jake Montalvo PLAN OF TREATMENT No Information
--- OUTSIDE RECORDS SUMMARY | 2024-09-19 14:19 | XMS_ITS | Patient Health Record ---
Author Organization [facility] Address [address] [place] [address] Care Team Providers Care Clinical Support Associate Name Role Phone Davonte Reid MD Primary Care Provider Jake Wilcox [phone] ALLERGIES Allergen (clinical drug ingredient) Drug/Non Drug Allergy documented on EMR Reaction Allergy Type Onset Date Status morphine Morphine Unknown Drug Allergy Active oxycodone Oxycodone Unknown Drug Allergy Active codeine Codeine Unknown Drug Allergy Active nasea medications (uncoded) Unknown Allergy Active REASON FOR REFERRAL No Information MEDICATIONS Medication SIG (Take, Route, Frequency, Duration) Notes Start Date End Date Status metFORMIN HCl 1000 MG TOME NILAM TABLETA D OS VECES AL D A Oral for 90 Active Simvastatin 20 MG TOME NILAM TABLETA TOD OS LOS D AL ACOSTARSE Oral for 90 Active Levothyroxine Sodium 150 MCG Oral for 30 Active Januvia 100 MG Oral for 90 Act eliezer Dulcolax (colon prep) 5 MG take at 3:00 p.m and 7:00p.m. Orally two tablets twice a day for one day for 1 day 01/20/2023 Active MiraLax (colon prep) 17 GM/SCOOP 1 238Gm bottle mixed with Gatorade or Crystal Light Orally begin at 5:00 p.m. the day before the procedure for 1 day 01/20/2023 Active Zolpidem Tartrate 5 MG Oral for 28 Active Metoprolol Succinate ER 50 MG Oral for 90 Active SOCIAL HISTORY Tobacco Use: Social History Observation Description Date Details (start date - stop date) Never Smoker NA - NA Sex Assigned At : Social History Observation Description Sex Assigned At Unknown Tobacco Use/Smoking Question Answer Notes Patient is a nonsmoker Alcohol Screen Question Answer Notes Did you have a drink containing alcohol in the p ast year? No Points 0 Interpretation Negative PROBLEMS Problem Type ICD Code Onset Dates Problem Status W/U Status Risk SNOMED Code Notes Problem Colon cancer screening (Z12.11) Active confirmed 517784742 Problem Preprocedural examination (Z01.818) Active confirmed 847533557139405 Problem Diverticulosis of large intestine without perforation or abscess without bleeding (K57.30) Active confirmed Diverticul ar disease of colon (189965470) PLAN OF TREATMENT Future Test Test Name Order Date COLONOSCOPY 01/20/2023 Insurance Providers Payer Name Payer Address Payer Phone Subscriber Number Group Number Insured Name Patient Relationship to Insured Coverage Start Date Coverage End Date [facility] [address] Attn [place] [id number] MIGUELITO NANCE Self - patient is the insured MEDICAL (GENERAL) HISTORY Medical History History ICD Code NIDDM hypertension hypercholesterolemia emphysema Hypothyroidism Negative screening colonoscopy in 2010 Denies DE,CVA,renal disease Surgical History Surgery Date(Month/Year)
--- OUTSIDE RECORDS SUMMARY | 2024-09-19 14:19 | XMS_ITS ---
Author Organization [facility] Address [address] [place] [address] Care Team Providers Care Straw Hat Brusher Name Role Phone Davonte Reid MD Primary Care Provider Jake Wilcox [phone] REASON FOR VISIT screening Encounters Encounter Location Date Provider Diagnosis [facility] [address] [address] [place], [place] [id number] 03/30/2023 Jake Montalvo PLAN OF TREATMENT No Information
--- OUTSIDE RECORDS SUMMARY | 2024-09-19 14:19 | XMS_ITS ---
Author Organization [facility] Address [address] [place] [address] Care Team Providers Care Circulation Crew Leader Name Role Phone Davonte Reid MD Primary Care Provider Jake Wilcox [phone] REASON FOR VISIT screening PROBLEMS Problem Type ICD Code Onset Dates Problem Status W/U Status Risk SNOMED Code Notes Problem Diverticulosis of large intestine without perforation or abscess without bleeding (K57.30) Active confirmed Diverticul ar disease of colon (595363873) Encounters Encounter Location Date Provider Diagnosis [facility] [address] [place], [place] [phone] 06/22/2023 Jake Montalvo Encounter for scre ening colonoscopy Z12.11 ; Colon polyps K63.5 ; Diverticulosis of large intestine without perforation or abscess without bleeding K57.30 and Other hemorrhoids K64.8 ASSESSMENTS Encounter Date Diagnosis Assessment Notes Treatment Notes Treatment Clinical Notes 06/22/2023 Encounter for screening colonoscopy (ICD-10 - Z12.11) 06/22/2023 Colon polyps (ICD-10 - K63.5) 06/22/2023 Diverticulosis of large intestine without perforation or abscess without bleeding (ICD-10 - K57.30) 06/22/2023 Other hemorrhoids (ICD-10 - K64.8) PLAN OF TREATMENT No Information
--- OUTSIDE RECORDS SUMMARY | 2024-09-19 14:19 | XMS_ITS | Clinical Summary ---
Author Organization [facility] [address] [facility] Address [address] [place] [address] Phone Care Team Providers Care Game Artist Name Role Phone Davonte Reid MD Primary Care Provider [phone] Allergies Active Allergy Reactions Criticality Noted Date Comments Cholecalciferol (Vitamin D3) 07/08/2017 Muscle pain Codeine 11/22/2012 Dulaglutide Diarrhea,Headache,N ausea And Vomiting 07/09/2021 Glipizide Other 04/16/2017 Abdominal pain Hydromorphone Nausea And Vomiting 01/20/2017 Insulin Glargine 12/31/2023 Rash? Lisinopril Cough 10/08/2018 Morphine 11/22/2012 Other 07/17/2023 Flu Virus Vaccine; Fever and bad sickness Penicillins 11/22/2012 Ramelteon 11/12/2015 Chest pain,htn, Tramadol Nausea And Vomiting 01/20/2017 Medications Medication Sig Dispensed Refills Start Date End Date Status FREESTYLE LANCETS MISC USE TO TEST BLOOD SUGARS 2 TIMES A DAY 11/30/2023 Active blood sugar diagnostic (FreeStyle Lite Strips) test strip USE TO CHECK BLOOD SUGAR TWICE A DAY 03/09/2024 Active blood-glucose meter kit To check sugars twice daily E11.9 11/30/2023 Active ibuprofen (ADVIL,MOTRIN) 600 mg tablet TOME NILAM TABLETA CADA SEIS HORAS CUANDO SEA NECESARIO PARA EL DOLOR OR FEVER 03/29/2023 Active acetaminophen (TYLENOL 8 HOUR) 650 mg 8 hr tablet Take 1 tablet (650 mg total) by mouth every 8 (eight) hours if needed (pain). 04/01/2023 Active albuterol HFA (ProAir HFA) 90 mcg/actuation inhaler Inhale 2 puffs by mouth 4 (four) times a day if needed (FOR COUGH, WHEEZING OR SHORTNESS OF BREATH.). 12/01/2016 Active lidocaine-priloca ine (EMLA) 2.5-2.5 % cream Apply to affected area on the feet PRN pain TID 03/15/2019 Active metFORMIN XR (GLUCOPHAGE-XR) 500 mg 24 hr tablet TOME DOS TABLETAS POR VIA ORAL DOS VECES AL CHEMO CON LAS COMIDAS 12/07/2023 Active omeprazole (PriLOSEC) [address] capsule Take 1 capsule (20 mg total) by mouth 1 (one) time each day. TAKE IN AM ON EMPTY STOMACH, WAIT 30 MINS AND THEN EAT 09/10/2021 Active simvastatin (ZOCOR) 20 mg tablet TOME NILAM TABLETA TODO LOS MARTIN AL ACOSTARSE 12/24/2023 Active SITagliptin phosphate (Januvia) 100 mg tablet TOME NILAM TABLETA S LOS MARTIN 10/07/2023 Active timolol (TIMOPTIC) 0.5 % ophthalmic solution Administer 1 drop into both eyes 2 (two) times a day. 01/21/2022 Active Lantus Solostar U-100 Insulin 100 unit/mL (3 mL) injection pen USE 6 UNITS AT BEDTIME, INCREASE BY 2 UNITS EVERY 3 DAYS WITH A MAX DOSE OF 10 UNITS 05/23/2024 Active BD Ultra-Fine Short Pen Needle 31 gauge x 5/16 needle TO USE WITH INSULIN PEN ONCE DAILY 01/15/2024 Active Jardiance 25 mg tablet TOME 1 TABLETA POR VIA ORAL TODOS [place] MARTIN 90 tablet 07/27/2024 Active valsartan-hydroCH LOROthiazide (DIOVAN-HCT) 320-25 mg per tablet TOME 1 TABLETA POR VIA ORAL TODOS LOS MARTIN 90 tablet 1 07/28/2024 Active diclofenac (VOLTAREN) 1 % topical gel PLACE 1 GRAM TOPICALLY 3 TIMES DAILY NEEDED FOR PAIN 300 g 1 08/09/2024 Active levothyroxine (SYNTHROID, LEVOTHROID) 150 mcg tabletIndications :Hypothyroidism, unspecified TOME NILAM TABLETA TODO LOS MARTIN 30 tablet 2 09/08/2024 Active zolpidem (AMBIEN) 5 mg tablet TAKE 1 TABLET BY MOUTH AT BEDTIME NEEDED FOR SLEEP. MAX DAILY AMOUNT: 5 MG 28 tablet 09/08/2024 Active metoprolol succinate (TOPROL-XL) 50 mg 24 hr tablet TOME NILAM TABLETA GERMAN MACKAY MARTIN 90 tablet 1 09/08/2024 Active levothyroxine (SYNTHROID, LEVOTHROID) 150 mcg tablet TOME NILAM TABLETA GERMAN LOS MARTIN 12/31/2023 5 Discontinued metoprolol succinate (TOPROL-XL) 50 mg 24 hr tablet Take 1 tablet (50 mg total) by mouth 1 (one) time each day. 01/06/2023 5 Discontinued zolpidem (AMBIEN) 5 mg tablet Take 1 tablet (5 mg total) by mouth at bedtime as needed for sleep. Max Daily Amount: 5 mg 28 tablet 08/12/2024 5 Discontinued Active Problems Problem Noted Date Diagnosed Date HTN (hypertension) 05/25/2024 Assessment & Plan (08/01/2024 11:41 AM EST): Orders: Comprehensive metabolic panel; Future Hyperlipidemia 05/25/2024 Assessment & Plan (08/01/2024 11:41 AM EST): Orders: Lipid panel with reflex to direct LDL; Future Hypothyroidism 05/25/2024 Assessment & Plan (08/01/2024 11:41 AM EST): Orders: Thyroid stimulating hormone with reflex to free t4 and free t3; Future Stage 3a chronic kidney disease (CKD) 05/25/2024 Assessment & Plan (08/01/2024 11:41 AM EST): Orders: Comprehensive metabolic panel; Future 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 Onychomycosis 12/31/2015 Erythrocytosis 11/14/2014 Insomnia 08/08/2013 Assessment & Plan (08/01/2024 11:41 AM EST): Condition not found 12/17/2012 Overview (05/25/2024): DM (diabetes mellitus) type II uncontrolled with eye manifestation Encounters Date Type Department Care Team Description 08/01/2024 11:00 AM EST Office Visit Adult Medicine [address] [phone] Davonte Reid MD Encounter for subsequent annual wellness visit (AWV) in Medicare patient (Primary Dx); Primary hypertension; Pure hypercholesterolemia; Hypothyroidism, unspecified type; Primary insomnia; Type II or unspecified type diabetes mellitus with neurological manifestations, not stated as uncontrolled(250.60) (CMS/HCC); Stage 3a chronic kidney disease (CKD) (CMS/[facility]); Encounter for long-term (current) use of medications; Overweight (BMI 25.0-29.9) from Last 3 Months Immunizations Name Administration Dates Next Due Influenza Quadravalent, MDCK , 0.5ml, with preservative (Flucelvax) 6mo and older 07/29/2017 Influenza trivalent, 0.5mL ( Fluzone High-dose) 65yo and older 05/19/2018,05/09/2016 Influenza trivalent, with pr eservative (Fluzone; Afluria) 6mo and older 07/25/2015,07/05/2014,07/13/2013 Pneumococcal conjugate 13 va lent (Prevnar 13, PCV13) 2mo and older 05/09/2016,07/25/2015 Pneumococcal polysaccharide 23 valent (Pneumovax 23) 2yo and older 06/01/2013,04/22/2013 Tdap Tetanus diptheria acell ular pertussis (Boostrix; Adacel) 7yo and older 12/27/2013 Zoster Live 09/06/2014 Zoster recombinant (Shingrix ) 19yo and older 02/04/2022,10/11/2021 Surgical History Surgery Date Site/Laterality Comments HYSTERECTOMY PROCEDURE: HISTORICAL HYSTERECTOMY COLONOSCOPY 2012 PROCEDURE: HISTORICAL COLONOSCOPY; COMMENT: 8 mm right colon polyp: Tubular adenoma. COLONOSCOPY 03/27/2017 PROCEDURE: HISTORICAL COLONOSCOPY; COMMENT: 7 mm right colon polyp. Incomplete examination. Polyp not retrieved. Medical History Medical History Date Comments HTN (hypertension) DX:HTN (hyper tension) Hyperlipidemia DX:Hyperlipidemi a Hypothyroidism DX:Hypothyroidis m DM (diabetes mellitus), type 2, uncontrolled 12/17/2012 DX:DM (diabetes mellitus), t ype 2, uncontrolled Insomnia 08/08/2013 DX:Insomnia Erythrocytosis 11/14/2014 DX:Erythrocytosi s History of colonic polyps DX:His tory of colonic polyps Diverticulitis 01/09/2017 DX:Diverticuliti s; COMMENT: First episode 2016. History of colonoscopy 03/27/2017 DX:Histor y of colonoscopy; COMMENT: 03/27/2017: Very difficult colonoscopy, incomplete, would not repeat. DM (diabetes mellitus) type II uncontrolled with eye manifestation 12/17/2012 DX:DM (diabetes me llitus) type II uncontrolled with eye manifestation Early satiety DX:Early satiety Postprandial epigastric pain DX: Postprandial epigastric pain Abdominal bloating DX:Abdominal bloating Spondylosis of cervical mina on without myelopathy or radiculopathy 09/28/2022 DX:Spondylosis of cervical region without myelopathy or radiculopathy Family History Medical History Relation Name Comments Lung cancer Brother 1 Other cancer Father type? stomach Hypertension Mother hlp, dm, mi Breast cancer Neg Hx Relation Name Status Comments Brother 1 Brother 2 Father Mother Sister Alive Social History Tobacco Use Types Packs/Day Years Used Date Smoking Tobacco: Never Smokeless Tobacco: Never Tobacco Cessation:Counseling Given: Not Answered Alcohol Use Standard Drinks/Week Comments No 0 (1 standard drink = 0.6 oz pur e alcohol) Sex and Gender Information Value Date Recorded Sex Assigned at Not on file Gender Identity Not on file Sexual Orientation Not on file Job Start Date Occupation Industry Not on file Not on file Not on file Obstetrics History Last Filed Vital Signs Vital Sign Reading Time Taken Comments Blood Pressure 143/80 08/01/2024 11:09 AM EST Pulse 51 08/01/2024 11:09 AM EST Temperature 36.6 ??C (97.8 ??F) 08/01/2024 11:[address] Respiratory Rate 12 08/01/2024 11:09 AM EST Oxygen Saturation - - Inhaled Oxygen Concentration - - Weight 70.8 kg (156 lb) 08/01/2024 11:09 AM EST Height 167.6 cm (5' 6 ) 08/01/2024 11:09 AM EST Body Mass Index 25.18 08/01/2024 11:09 AM EST Plan of Treatment Upcoming Encounters Date Type Department Care Team (Late st Contact Info) Description 11/02/2024 10:00 AM EDT Office Visit Endocrinology - [address] [phone] Marissa Bernal PA [address] [place] [address] 12/14/2024 3:30 PM EDT Appointment Radiology Department - [address] [phone] 02/03/2025 1:15 PM EDT Office Visit Adult Medicine [address] [phone] Davonte Reid MD [address] [place] [address] Health Maintenance Due Date Last Done Comments Diabetes: Annual Foot Exam 1955 COVID-19 Vaccine (3 - Moderna risk series) 05/31/2021 05/03/2021, 04/02/2021 RSV Immunization Patients 60+ Years Old (1 - 1-dose 75+ series) 2021 Colorectal Cancer Screening: Colonoscopy 08/02/2022 03/27/2017 Osteoporosis Screening (Bone Density Screening) 08/02/2022 Social Influencers of Health Screening 08/02/2022 DTaP,Tdap,and Td Vaccines (2 - Td or Tdap) 12/28/2023 12/27/2013 Influenza Vaccine (#1) 2024 8, 07/29/2017, 05/09/2016, Additional history exists Diabetes: Annual Retina Eye Exam 06/30/2024 06/30/2023 Diabetes: Blood Sugar Control Test (HGBA1C) 03/09/2025 09/09/2024, 03/01/2024, 03/01/2024 Depression Screening 08/01/2025 08/01/2024 Falls Risk Assessment 08/01/2025 08/01/2024 Medicare Annual Wellness Visit 08/01/2025 08/01/2024 Diabetes: Annual GFR (Glomerular Filtration Rate) 09/09/2025 09/09/2024, 03/01/2024, 03/01/2024, Additional history exists Hypertension/CHF/CAD Annual BMP Blood Test 09/09/2025 09/09/2024, 03/01/2024, 03/01/2024, Additional history exists Diabetes: Annual Urine Albumin-Creatinine Ratio (uACR) 09/12/2025 09/12/2024, 02/01/2024 Cholesterol Screening (Lipid Panel) 09/09/2029 09/09/2024, 02/01/2024, 02/01/2024 Hepatitis C Screening Completed 06/29/2013 Pneumococcal Vaccine: 65+ Years Completed 05/09/2016, 07/25/2015, 06/01/2013, Additional history exists Zoster Vaccines Completed 02/04/2022, 09/24, 09/06/2014 HIB Vaccines Aged Out No longer eligi ble based on patient's age to complete this topic HPV Vaccines Aged Out No longer eligi ble based on patient's age to complete this topic Hepatitis A Vaccines Aged Out No long er eligible based on patient's age to complete this topic Hepatitis B Vaccines Aged Out No long er eligible based on patient's age to complete this topic IPV Vaccines Aged Out No longer eligi ble based on patient's age to complete this topic MMR Vaccines Aged Out No longer eligi ble based on patient's age to complete this topic Meningococcal ACWY Vaccine Aged Out N o longer eligible based on patient's age to complete this topic RSV Immunization Patients Under 20 months Aged Out No longer eligible based on patient's age to complete this topic Varicella Vaccines Aged Out No longer eligible based on patient's age to complete this topic Procedures Procedure Name Priority Date/Time Associated Diagnosis Comments MICROALBUMIN CREATININE URINE RATIO Routine 09/12/2024 12:56 PM EST DM (diabetes mellitus), type 2 with peripheral vascular complications (CMS/HCC) Hypertension, unspecified type Stage 3a chronic kidney disease (CKD) (CMS/HCC) Hypothyroidism, unspecified type Type II or unspecified type diabetes mellitus with neurological manifestations, not stated as uncontrolled(250.60) (CMS/HCC) Primary hypertension Encounter for long-term (current) use of medications Pure hypercholesterolemia LIPID PANEL WITH REFLEX TO DIRECT LDL Routine 09/09/2024 9:42 AM EST Pure hypercholesterolemia COMPREHENSIVE METABOLIC PANEL Routine 09/09/2024 9:42 AM EST Primary hypertension Type II or unspecified type diabetes mellitus with neurological manifestations, not stated as uncontrolled(250.60) (CMS/HCC) Stage 3a chronic kidney disease (CKD) (CMS/HCC) Encounter for long-term (current) use of medications HEMOGLOBIN A1C Routine 09/09/2024 9:42 AM EST DM (diabetes mellitus), type 2 with peripheral vascular complications (CMS/HCC) Hypertension, unspecified type Stage 3a chronic kidney disease (CKD) (CMS/HCC) Hypothyroidism, unspecified type Type II or unspecified type diabetes mellitus with neurological manifestations, not stated as uncontrolled(250.60) (CMS/HCC) THYROID STIMULATING HORMONE WITH REFLEX TO FREE T4 AND FREE T3 Routine 09/09/2024 9:42 AM EST DM (diabetes mellitus), type 2 with peripheral vascular complications (CMS/HCC) Hypertension, unspecified type Stage 3a chronic kidney disease (CKD) (CMS/HCC) Hypothyroidism, unspecified type Type II or unspecified type diabetes mellitus with neurological manifestations, not stated as uncontrolled(250.60) (CMS/HCC) DIABETES EYE EXAM Routine 06/30/2023 COLONOSCOPY Routine 03/27/2017 HEPATITIS C SCREENING Routine 06/29/2013 from Last 3 Months or Most Recently Relevant to Health Maintenance Results * Microalbumin creatinine urine ratio (09/12/2024 12:56 PM EST) Creatinine, Urine 71.0 mg/dL LAB CHEMISTRY METHOD 09/12/2024 5:09 PM EST [facility] Microalb, Ur 7.3 0.0 - 29.0 mg/L LAB CHEMISTRY METHOD 09/12/2024 5:09 PM EST [facility] Microalb/Creat Ratio 10 <30 mg/g creat LAB CHEMISTRY METHOD 09/12/2024 5:09 PM EST [facility] Urine Urine specimen obtained by clean catch procedure / Unknown Non-blood Collection / Unknown 09/12/2024 12:56 PM EST 09/12/2024 12:56 PM EST Marissa DODSON LAB URINE ORDERABLES Performing Organization Address City/[facility]/ZIP Co de Phone Number [facility] [address] [place] [address], [place] [phone] * Thyroid stimulating hormone with reflex to free t4 and free t3 (09/09/2024 9:42 AM EST) [facility] TSH 0.62 0.40 - 4.00 mcIU/mL LAB CHEMISTRY METHOD 09/09/2024 12:45 PM EST [facility] Blood Venous blood specimen / Unknown Venipuncture / Unknown 09/09/2024 9:42 AM EST 09/09/2024 9:42 AM EST Marissa DODSON LAB BLOOD ORDERABLES [facility] [address] [place] [address], [place] [phone] * (ABNORMAL) Lipid panel with reflex to direct LDL (09/09/2024 9:42 AM EST) [facility] Cholesterol 157 0 - 200 mg/dL LAB CHEMISTRY METHOD 09/09/2024 2:31 PM [facility] Triglycerides 174(H) 0 - 150 mg/dL LAB CHEMISTRY METHOD 09/09/2024 2:31 PM [facility] HDL 40 >=40 mg/dL LAB CHEMISTRY METHOD 09/09/2024 2:31 PM [facility] LDL Calculated 82 0 - 100 mg/dL LAB CHEMISTRY METHOD 09/09/2024 2:31 PM EST [facility] VLDL Cholesterol Miller 34.8 mg/dL LAB CHEMISTRY METHOD 09/09/2024 2:31 PM [facility] Non HDL Chol. (LDL+VLDL) 117 <145 mg/dL LAB CHEMISTRY METHOD 09/09/2024 2:31 PM [facility] Chol/HDL Ratio 3.9 0.0 - 4.4 LAB CHEMISTRY METHOD 09/09/2024 2:31 PM [facility] Blood Venous blood specimen / Unknown Venipuncture / Unknown 09/09/2024 9:42 AM EST 09/09/2024 9:42 AM EST Davonte Reid MD LAB BLOOD ORDERABLES [facility] [address] [place] [address], * (ABNORMAL) Hemoglobin A1c (09/09/2024 9:42 AM EST) Hemoglobin A1C 8.8(H) <6.5 % LAB CHEMISTRY METHOD 09/09/2024 1:32 PM EST [facility] Mean Bld Glu Estim. 206 mg/dL LAB CHEMISTRY METHOD 09/09/2024 1:32 PM [facility] Blood Venous blood specimen / Unknown Venipuncture / Unknown 09/09/2024 9:42 AM EST 09/09/2024 9:42 AM EST Marissa DODSON LAB BLOOD ORDERABLES [facility] [address] [place] [address], * (ABNORMAL) Comprehensive metabolic panel (09/09/2024 9:42 AM EST) Sodium 135 133 - 145 mmol/L LAB CHEMISTRY METHOD 09/09/2024 2:31 PM [facility] Potassium 4.1 3.5 - 5.5 mmol/L LAB CHEMISTRY METHOD 09/09/2024 2:31 PM [facility] Chloride 106 96 - 110 mmol/L LAB CHEMISTRY METHOD 09/09/2024 2:31 PM [facility] CO2 20(L) 21 - 32 mmol/L LAB CHEMISTRY METHOD 09/09/2024 2:31 PM [facility] Anion Gap 9 3 - 11 LAB CHEMISTRY METHOD 09/09/2024 2:31 PM [facility] Glucose 168(H) 70 - 100 mg/dL LAB CHEMISTRY METHOD 09/09/2024 2:31 PM [facility] BUN 16 5 - 25 mg/dL LAB CHEMISTRY METHOD 09/09/2024 2:31 PM [facility] Creatinine 1.06 0.50 - 1.10 mg/dL LAB CHEMISTRY METHOD 09/09/2024 2:31 PM [facility] eGFR 54(L) >=60 mL/min/1. 73m2 LAB CHEMISTRY METHOD 09/09/2024 2:31 PM [facility] Comment:Calculation based on the??Chronic Kidney Disease Epidemiology Collaboration (CKD-EPI) equation refit??without adjustment for race. BUN/Creatinine Ratio 15.1 LAB CHEMISTRY METHOD 09/09/2024 2:31 PM [facility] Calcium 9.9 8.5 - 10.5 mg/dL LAB CHEMISTRY METHOD 09/09/2024 2:31 PM [facility] AST (SGOT) 43(H) 10 - 42 unit/L LAB CHEMISTRY METHOD 09/09/2024 2:31 PM [facility] ALT (SGPT) 62(H) 10 - 60 unit/L LAB CHEMISTRY METHOD 09/09/2024 2:31 PM [facility] Alkaline Phosphatase 74 42 - 121 unit/L LAB CHEMISTRY METHOD 09/09/2024 2:31 PM [facility] Total Protein 7.6 6.0 - 8.0 g/dL LAB CHEMISTRY METHOD 09/09/2024 2:31 PM [facility] Albumin 4.1 3.2 - 5.0 g/dL LAB CHEMISTRY METHOD 09/09/2024 2:31 PM [facility] Total Bilirubin 0.4 0.0 - 1.4 mg/dL LAB CHEMISTRY METHOD 09/09/2024 2:31 PM [facility] Blood Venous blood specimen / Unknown Venipuncture / Unknown 09/09/2024 9:42 AM EST 09/09/2024 9:42 AM EST Davonte Reid MD LAB BLOOD ORDERABLES [facility] [address] [place] [address], * Diabetes Eye Exam (06/30/2023) [facility] Diabetes: Annual Retina Eye Exam Abstracted Historical Provider MD DOMINIC PASTRANA E * Colonoscopy (03/27/2017) [facility] Colonoscopy No interpretation , abstracted Anatomical Region Laterality Modality Other Historical Provider MD DOMINIC PASTRANA * Hepatitis C Screening (06/29/2013) [facility] Hepatitis C Screening Abstracted Historical Provider MD DOMINIC Roblero from Last 3 Months or Most Recently Relevant to Health Maintenance Care Teams Game Artist Relationship Specialty Start Date End Date Davonte Reid MD [address] [place] [address] [phone] PCP - General Internal Medicine 03/10/19
== END 2024-09-19 11:09 | disposition home or self-care (01) ==
PROVIDERS: Emergency Provider Emergency Medicine; PCP Internal Medicine
DX: J10.1 Influenza due to other identified influenza virus with other respiratory manifestations (principal); R05.9 Cough, unspecified; R50.9 Fever, unspecified; E11.9 Type 2 diabetes mellitus without complications; I10 Essential (primary) hypertension; E78.5 Hyperlipidemia, unspecified; J45.909 Unspecified asthma, uncomplicated; Z03.818 Encounter for observation for suspected exposure to other biological agents ruled out; Z79.84 Long term (current) use of oral hypoglycemic drugs; Z79.02 Long term (current) use of antithrombotics/antiplatelets; Z79.899 Other long term (current) drug therapy
CPT/HCPCS: 0241U; 71046; 80053; 84484; 85025; 93005; 99283

== ENCOUNTER → 2024-09-19 09:31 | Outpatient (BNV) | payer OTHER, SELFPAY | PROVIDERS: Emergency Provider Emergency Medicine; PCP Internal Medicine; Visit Provider Internal Medicine | DX: R07.9 Chest pain, unspecified (principal); R94.31 Abnormal electrocardiogram [ECG] [EKG] | CPT/HCPCS: 93010 ==

== ENCOUNTER → 2024-09-19 09:50 | Outpatient (BNV) | payer OTHER, SELFPAY | PROVIDERS: PCP Internal Medicine; Visit Provider Radiology Diagnostic Radiology | DX: I70.0 Atherosclerosis of aorta (principal) | CPT/HCPCS: 71046 ==

== ENCOUNTER 2024-12-08 11:11 | Emergency (ER) | payer OTHER, SELFPAY ==
--- NOTE | ~2024-12-08 | XR_ITS ---
EXAMINATION: XR SHOULDER 2 OR MORE VIEWS RIGHT HISTORY: pain radiating down R arm COMPARISON: There are no prior studies available for comparison. FINDINGS: Three views of the right shoulder are submitted. Osseous mineralization is normal. There is no fracture or dislocation. The glenohumeral and acromioclavicular joint spaces are preserved. The soft tissues are unremarkable. XR/XR shoulder RT min 2V IMPRESSION: Unremarkable examination of the right shoulder. Electronically signed by: Jake Yeung MD 12/08/2024 11:50 AM EDT
--- NOTE | 2024-12-08 11:16 | ED_ITS ---
HPI - General Adult General Chief complaint: Extremity Problem Stated complaint: r arm pain Time Seen by Provider: 12/08/24 13:49 Source: patient, RN notes reviewed and old records reviewed Mode of arrival: ambulatory Limitations: no limitations History of Present Illness ED Provider: Fritz DAVIS narrative: Patient is a 79-year-old female presenting with complaint of right arm pain x 3 weeks. Progressively worsening. Denies any known injury or trauma. Denies neck pain, starts at shoulder. Reports decreased ROM due to pain. Taking Tylenol with little relief, pain interfering with sleep. Denies paresthesias. BP elevated in triage, states she took her BP medication today. Denies chest pain, palpitations, dyspnea. Denies headache, blurred or double vision, dizziness or lightheadedness. MD complaint: right arm pain Onset (ago): week(s) Location: right and upper extremity Related Data Home Medications ?Medication ?Instructions ?Recorded ?Confirmed levothyroxine 150 mcg tablet 150 mcg PO DAILY 06/18/23 06/02/24 metformin 1,000 mg tablet 1,000 mg PO BID 06/18/23 06/02/24 metoprolol succinate 50 mg 50 mg PO DAILY 06/18/23 06/02/24 tablet,extended release 24 hr simvastatin 20 mg tablet 20 mg PO BEDTIME 06/18/23 06/02/24 sitagliptin phosphate 100 mg 100 mg PO DAILY 06/18/23 06/02/24 tablet (Januvia) zolpidem 5 mg tablet 5 mg PO BEDTIME 06/18/23 06/02/24 Previous Rx's ?Medication ?Instructions ?Recorded acetaminophen 500 mg tablet 1,000 mg (2 x 500 mg) PO QID PRN 02/23/22 pain #30 tabs ibuprofen 600 mg tablet 600 mg PO Q6H PRN fever or pain 03/28/23 #30 tabs lidocaine 4 % topical patch 1 patch topical DAILY PRN pain #30 03/28/23 ea albuterol sulfate 90 mcg/actuation 2 puff inhalation Q4-6H PRN 06/14/24 aerosol inhaler shortness of breath or wheezing #6.7 grams benzonatate 100 mg capsule 100 mg PO TID PRN cough #14 caps 06/14/24 cyclobenzaprine 5 mg tablet 5 mg PO TID PRN muscle spasm #10 12/08/24 tabs lidocaine 5 % topical patch 1 patch topical DAILY #15 ea 12/08/24 prednisone 20 mg tablet 20 mg PO DAILY #7 tabs 12/08/24 Allergies Allergy/AdvReac Type Severity Reaction Status Date / Time levofloxacin [From LEVAQUIN] Allergy Intermediate RASH Verified 12/08/24 11:20 ondansetron [From ZOFRAN] Allergy Intermediate HIVES Verified 12/08/24 11:20 Penicillins [PENICILLINS] Allergy Intermediate RASH Verified 12/08/24 11:20 hydromorphone [From DILAUDID] Allergy Unknown Unknown Verified 12/08/24 11:20 tramadol [TRAMADOL] Allergy Unknown Unknown Verified 12/08/24 11:20 codeine [CODEINE] AdvReac Intermediate N/V Verified 12/08/24 11:20 morphine [MORPHINE] AdvReac Intermediate N/V Verified 12/08/24 11:20 Review of Systems Review of Systems: As per HPI Yes all other systems are reviewed and are negative Constitutional: Constitutional: Reports as per HPI PMFSH Past Medical History Medical History Degenerative joint disease (DJD) of hip Erythrocytosis Diverticulosis Insomnia Diabetes Hypothyroid Hyperlipidemia HTN (hypertension) Surgical History History of esophagogastroduodenoscopy (EGD) H/O colonoscopy Social History Social History Alcohol intake: never Patient Tobacco Use Status: Never used Tobacco Advance Directives: No Advance Directives Information Provided: No Physical Exam ED Vital Signs: Vital Signs - 24 hr 12/08/24 11:18 12/08/24 13:50 12/08/24 14:14 Temperature 97.5 F 98 F 98 F Pulse Rate 60 57 57 Respiratory Rate 16 16 16 Blood Pressure 186/79 H 188/68 H 188/68 H Pulse Oximetry 99 100 100 Oxygen Delivery Method Room Air Room Air Room Air BMI result Body Mass Index 27.9 Vital signs have been reviewed and appear to be correct. Blood pressure elevated. Heart rate normal. Respiratory rate normal. Temperature normal. Oxygen saturation normal. Const General: cooperative, healthy appearing and no acute distress Orientation/consciousness: oriented to person, oriented to place, oriented to time and patient oriented x3 Limitations: no limitations [facility] Head: Yes normocephalic and Yes atraumatic Ears: external ears normal General nose exam: Normal external nose present Face and sinus: Yes face symmetric Mouth: oropharynx normal and moist mucous membranes Throat: Yes uvula midline Eyes Pupils: Equal, round and reactive pupils present Neck Neck: Yes normal visual inspection and Yes supple Resp Effort & Inspection: normal respiratory effort and able to speak in complete sentences Auscultation: clear to auscultation bilaterally Cardio Rate: regular rate Rhythm: regular rhythm Heart sounds: S1 normal heart sound present and S2 normal heart sound present GI Palpation (GI): Soft to palpation and nontender Auscultation: normoactive bowel sounds General: Yes no CVA tenderness Back/Spine/Pelvis Back: no CVA tenderness Cervical Spine: normal cervical lordosis, cervical ROM normal, No cervical muscular tenderness, No pain with cervical ROM, No Cervical spine tenderness and No step off deformity Skin General skin exam: elasticity normal and turgor normal Neuro General: oriented to person, oriented to place, oriented to time, patient oriented x3, moves all extremities, no focal motor deficits and CN's II-XI intact bilaterally Cranial nerves: Yes Equal, round and reactive pupils present Cognition (Neuro): normal cognition Extrem General: Yes full ROM, Yes no pedal edema and Yes no calf tenderness Right upper extremity: shoulder/upper arm Details: normal to inspection and abnormal ROM (decreased ROM with adduction, external rotation due to pain); no tenderness, no swelling, no ecchymosis and no crepitus and Extremity exam: right hand Details: vascular exam Details: radial pulse present and normal capillary refill Psych Mental Status: mental status grossly normal Affect: normal affect Thought process: Normal thought process present Course Course Course Narrative: This is a rapid medical exam performed by Corazon Hu NP: Additional HPI, ROS, PE not included below will be deferred to primary provider. 12/08/24 11:16 Patient is a 79-year-old female presenting with complaint of right arm pain x 3 weeks. Progressively worsening. Denies any known injury or trauma. Denies neck pain, starts at shoulder. Plan: xray Medical Decision Making Medical Decision Making MDM Narrative: Patient is a 79-year-old female presenting with complaint of right arm pain x 3 weeks. On exam patient is awake, A+Ox3, BP elevated, VS otherwise WNL, afebrile, normal neurological exam without focal deficits, physical exam findings as above. Given reported symptoms and physical exam findings, initial differential includes but is not limited to right shoulder fracture, osteoarthritis, muscle strain, rotator cuff injury. X-ray right shoulder notable for no evidence of fracture or OA. My interpretation is in agreement with the radiologist's interpretation. EKG shows sinus bradycardia. Results discussed with patient all questions answered. Will treat with course of prednisone, Flexeril, lidocaine patches. Will refer to orthopedics for further evaluation and management. Return precautions discussed. Patient verbalized understanding of and agreement with plan. Differential Diagnosis Differential Diagnoses: The differential diagnosis associated with the presentation includes as per [facility] Admission/Observation Consideration of admission/observation: Escalation of care including admission/observation considered Patient would have been admitted to the hospital had their work up had any findings where hospital admission was appropriate and their clinical presentation warranted hospital admission. Independent Interpretation I performed an independent interpretation of an: EKG (sinus bradycardia, rate 50bpm, normal WA interval and QTc) and Plain X-Ray Interpretation: No evidence of fracture or osteoarthritis right shoulder. Radiology Impression Discussion of test interpretation with radiology: I have reviewed the radiologist's reading. Radiologist Impression: XR/XR shoulder RT min 2V IMPRESSION: Unremarkable examination of the right shoulder. External Record Review External record reviewed: Inpatient record, Office record and Outpatient record Prescription Management I considered prescription management with: Pain Medication and Other Discharge Plan Discharge Clinical Impression: Pain in right shoulder Patient Disposition: Home, Self-Care Instructions: Shoulder Pain (ED), Arm Pain (ED) Additional Instructions: You were evaluated in the emergency department today with complaint of right geraldine ulder pain. Your x-ray was normal. You are being prescribed a muscle relaxer as well as a short course of steroids to decrease inflammation. You are also being prescribed topical lidocaine patches that you can wear for up to 12 hours in a 24 hour period, do not apply heat directly over the patches. If your symptoms persist, call the orthopedic office to schedule an appointment for further evaluation. Return to the emergency department with new or concerning symptoms. Prescriptions: New cyclobenzaprine 5 mg tablet 5 mg PO TID PRN (Reason: muscle spasm) Qty: 10 0RF prednisone 20 mg tablet 20 mg PO DAILY Qty: 7 0RF lidocaine 5 % adhesive patch,medicated 1 patch topical DAILY Qty: 15 0RF Rx Instructions: leave on most painful area for up to 12 hrs No Action acetaminophen 500 mg tablet 1,000 mg PO QID PRN (Reason: pain) Qty: 30 0RF metoprolol succinate 50 mg tablet extended release 24 hr 50 mg PO DAILY simvastatin 20 mg tablet 20 mg PO BEDTIME metformin 1,000 mg tablet 1,000 mg PO BID levothyroxine 150 mcg tablet 150 mcg PO DAILY zolpidem 5 mg tablet 5 mg PO BEDTIME Januvia 100 mg tablet 100 mg PO DAILY ibuprofen 600 mg tablet 600 mg PO Q6H PRN (Reason: fever or pain) Qty: 30 0RF lidocaine 4 % adhesive patch,medicated 1 patch topical DAILY PRN (Reason: pain) Qty: 30 0RF Rx Instructions: Apply at the painful area for 12 hours a day benzonatate 100 mg capsule 100 mg PO TID PRN (Reason: cough) Qty: 14 0RF albuterol sulfate 90 mcg/actuation HFA aerosol inhaler 2 puff inhalation Q4-6H PRN (Reason: shortness of breath or wheezing) Qty: 6.7 0RF Ref[place]: [facility] [place]Provider Group] - 1 week (R shoulder/arm pain) Interventions: ED Discharge Assessment Last Done: 12/08/24 14:14 Print Language: Nepalese
[2024-12-08 11:18] VITALS: BP 186/79; PULSE 60; RESP 16; TEMP 36.4; O2SAT 99; BMI 27.9
--- NOTE | 2024-12-08 13:30 | ECG_ITS ---
Test Reason : r arm pain Blood Pressure : */* mmHG Vent. Rate : 50 BPM Atrial Rate : 50 BPM P-R Int : 200 ms QRS Dur : 70 ms QT Int : 424 ms P-R-T Axes : 49 2 159 degrees QTcB Int : 386 ms Sinus bradycardia Nonspecific T wave abnormality Abnormal ECG When compared with ECG of 19-Sep-2024 09:40, Vent. rate has decreased by 27 bpm Nonspecific T wave abnormality now evident in Anterior leads QT has shortened Referred By: Soraya Hu Electronically Signed By: LENCHO BERNARDO MD
[2024-12-08 13:50] VITALS: BP 188/68; PULSE 57; RESP 16; TEMP 36.6; O2SAT 100
[2024-12-08 14:14] VITALS: BP 188/68; PULSE 57; RESP 16; TEMP 36.6; O2SAT 100
--- OUTSIDE RECORDS SUMMARY | 2024-12-08 17:19 | XMS_ITS | Clinical Summary ---
Author Organization [facility] [address] [facility] Address [address] [place] [address] Phone Care Team Providers Care Labor Relations Specialist Name Role Phone Davonte Reid MD Primary Care Provider [phone] Allergies Active Allergy Reactions Criticality Noted Date Comments Cholecalciferol (Vitamin D3) 07/08/2017 Muscle pain Codeine 11/22/2012 Dulaglutide Diarrhea,Headache,N ausea And Vomiting 07/09/2021 Glipizide Other 04/16/2017 Abdominal pain Hydromorphone Nausea And Vomiting 01/20/2017 Insulin Glargine 12/31/2023 Rash? Lisinopril Cough 10/08/2018 Morphine 11/22/2012 Other 07/17/2023 Flu Virus Vaccine; Fever and bad sickness Penicillins 11/22/2012 Ramelteon 11/12/2015 Chest pain,htn, Tramadol Nausea And Vomiting 01/20/2017 Medications ibuprofen (ADVIL,MOTRIN) 600 mg tablet TOME NILAM TABLETA CADA SEIS HORAS CUANDO SEA NECESARIO PARA EL DOLOR OR FEVER 03/29/20 23 Active acetaminophen (TYLENOL 8 HOUR) 650 mg 8 hr tablet Take 1 tablet (650 mg total) by mouth every 8 (eight) hours if needed (pain). 04/01/20 23 Active albuterol HFA (ProAir HFA) 90 mcg/actuation inhaler Inhale 2 puffs by mouth 4 (four) times a day if needed (FOR COUGH, WHEEZING OR SHORTNESS OF BREATH.). 12/02/19 17 Active lidocaine-priloc eugenia (EMLA) 2.5-2.5 % cream Apply to affected area on the feet PRN pain TID 03/15/20 19 Active omeprazole (PriLOSEC) [address] capsule Take 1 capsule (20 mg total) by mouth 1 (one) time each day. TAKE IN AM ON EMPTY STOMACH, WAIT 30 MINS AND THEN EAT 09/10/19 22 Active timolol (TIMOPTIC) 0.5 % ophthalmic solution Administer 1 drop into both eyes 2 (two) times a day. 01/22/20 22 Active Lantus Solostar U-100 Insulin 100 unit/mL (3 mL) injection pen USE 6 UNITS AT BEDTIME, INCREASE BY 2 UNITS EVERY 3 DAYS WITH A MAX DOSE OF 10 UNITS 05/23/20 24 Active BD Ultra-Fine Short Pen Needle 31 gauge x 5/16 needle TO USE WITH INSULIN PEN ONCE DAILY 01/15/20 24 Active valsartan-hydroC HLOROthiazide (DIOVAN-HCT) 320-25 mg per tablet TOME 1 TABLETA POR VIA ORAL TODOS [place]ART[place] 90 tablet 1 07/28/20 24 Active diclofenac (VOLTAREN) 1 % topical gel PLACE 1 GRAM TOPICALLY 3 TIMES DAILY NEEDED FOR PAIN 300 g 1 08/09/20 24 Active metoprolol succinate (TOPROL-XL) 50 mg 24 hr tablet TOME NILAM TABLETA TODOS [place]ART[place] 90 tablet 1 09/08/19 25 Active Januvia 100 mg tablet TOME 1 TABLETA POR VIA ORAL TODOS [place] 90 tablet 1 09/19/19 25 Active Jardiance 25 mg tablet TOME 1 TABLETA POR VIA ORAL TODOS [place] 90 tablet 1 10/25/19 25 Active blood sugar diagnostic (FreeStyle Lite Strips) test stripIndications :DM (diabetes mellitus), type 2 with peripheral vascular complications (CMS/HCC V24, CMS/HCC V28) USE TO CHECK BLOOD SUGAR TWICE A DAY 200 each 3 11/03/19 25 Active freestyle (FreeStyle Lancets) 28 gauge lancetsIndicatio ns:DM (diabetes mellitus), type 2 with peripheral vascular complications (CMS/HCC V24, CMS/HCC V28) USE TO TEST BLOOD SUGARS 2 TIMES A DAY 200 each 3 11/03/19 25 Active simvastatin (ZOCOR) 20 mg tablet Take 1 tablet daily at bedtime 30 tablet 5 11/03/19 25 Active metFORMIN XR (GLUCOPHAGE-XR) 500 mg 24 hr tabletIndication s:Type 2 diabetes mellitus with diabetic peripheral angiopathy without gangrene ([facility] V24, [facility] V28) TOME DOS TABLETAS POR VIA ORAL DOS VECES AL CHEMO CON LAS COMIDAS 360 tablet 1 11/22/19 25 Active levothyroxine (SYNTHROID, LEVOTHROID) 150 mcg tabletIndication s:Hypothyroidism , unspecified TOME 1 TABLETA POR VIA ORAL TODOS [place]ART[place] 30 tablet 2 11/30/19 25 Active zolpidem (AMBIEN) 5 mg tablet TAKE 1 TABLET BY MOUTH AT BEDTIME NEEDED FOR SLEEP. MAX DAILY AMOUNT: 5 MG. 28 tablet 12/02/19 25 Active blood-glucose meter kit To check sugars twice daily E11.9 11/30/19 24 025 metFORMIN XR (GLUCOPHAGE-XR) 500 mg 24 hr tablet TOME DOS TABLETAS POR VIA ORAL DOS VECES AL CHEMO CON LAS COMIDAS 12/07/19 24 025 Discontinued levothyroxine (SYNTHROID, LEVOTHROID) 150 mcg tabletIndication s:Hypothyroidism , unspecified TOME NILAM TABLETA TODOS [place] MARTIN 30 tablet 2 09/08/19 25 025 Discontinued zolpidem (AMBIEN) 5 mg tablet TAKE 1 TABLET BY MOUTH AT BEDTIME NEEDED FOR SLEEP. MAX DAILY AMOUNT: 5 MG. 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 09/28/2022 Spondylosis of lumbar region without myelopathy or radiculopathy 09/28/2022 Type II or unspecified type diabetes mellitus with neurological manifestations, not stated as uncontrolled(250.60) ([facility] V24, [facility] V28) 07/21/2018 Assessment & Plan (08/01/2024 11:41 AM EST): Orders: Hemoglobin A1c; Future Comprehensive metabolic panel; Future Microalbumin creatinine urine ratio; Future DM (diabetes mellitus), type 2 with peripheral vascular complications ([facility] V24, [facility] V28) 03/03/2018 Diverticulitis 01/09/2017 Overview (05/25/2024): First episode 2017. Onychomycosis 12/31/2015 Erythrocytosis 11/14/2014 Insomnia 08/08/2013 Assessment & Plan (08/01/2024 11:41 AM EST): Condition not found 12/17/2012 Overview (05/25/2024): DM (diabetes mellitus) type II uncontrolled with eye manifestation Encounters Date Type Department Care Team Description 11/02/2024 10:00 AM EDT Office Visit Endocrinology [address] [phone] Marissa Bernal PA DM (diabetes mellitus), type 2 with peripheral vascular complications ([facility] [place] V28) (Primary Dx); Hypothyroidism, unspecified type; Primary hypertension; Hyperlipidemia, unspecified hyperlipidemia type 09/22/2024 Telephone Adult Medicine [address] [phone] Shobha Oviedo RN 09/20/2024 Telephone Adult Medicine [address] [phone] Denisse Concepcion, GENERAL OPERATIONS AGENT follow up from Last 3 Months Immunizations Name Administration [...] drink = 0.6 oz pur e alcohol) Comments No Sex and Gender Information Value Date Recorded Sex Assigned at Not on file Legal Sex Female 11:14 AM EST Gender Identity Not on file Sexual Orientation Not on file Obstetrics History Last Filed Vital Signs Vital Sign Reading Time Taken Comments Blood Pressure 160/80 11/02/2024 10:20 AM EDT 5 mins Pulse 66 11/02/2024 10:17 AM EDT Temperature 36.1 ??C (97 ??F) 11/02/2024 10: 17 AM EDT Respiratory Rate 12 08/01/2024 11:0 9 AM EST Oxygen Saturation 99% 11/02/2024 10: 17 AM EDT Inhaled Oxygen Concentration - - Weight 70.2 kg (154 lb 12.8 oz) 025 10:17 AM EDT Height 157.5 cm (5' 2 ) 11/02/2024 10:1 7 AM EDT Body Mass Index 28.31 11/02/2024 10:17 AM EDT Plan of Treatment Upcoming Encounters Date Type Department Care Team (Late st Contact Info) Description 12/14/2024 3:30 PM EDT Appointment Radiology Department - [address] [phone] 02/03/2025 1:15 PM EDT Office Visit Adult Medicine [facility] - [address] [phone] Davonte Reid MD [address] [place] [phone] 06/14/2025 10:00 AM EDT Office Visit Endocrinology - [place] [address] [place] [address] Marissa Bernal PA [address] [place] [address] Health Maintenance Due Date Last Done Comments Diabetes: Annual Foot Exam 1955 COVID-19 Vaccine (3 - Moderna risk series) 05/31/2021 05/03/2021, 04/02/2021 RSV Immunization Adult Patients (1 - 1-dose 75+ series) 2021 Colorectal Cancer Screening: Colonoscopy 08/02/2022 03/27/2017 Osteoporosis Screening (Bone Density Screening) 08/02/2022 Social Influencers of Health Screening 08/02/2022 DTaP,Tdap,and Td Vaccines (2 - Td or Tdap) 12/28/2023 12/27/2013 Diabetes: Annual Retina Eye Exam 06/30/2024 06/30/2023 Diabetes: Blood Sugar Control Test (HGBA1C) 03/09/2025 09/09/2024, 03/01/2024, 03/01/2024 Influenza Vaccine (Season Ended) 2025 05/19/2018, 07/29/2017, 05/09/2016, Additional history exists Depression Screening 08/01/2025 08/01/2024 Falls Risk Assessment [...] Hepatitis C Screening Completed 06/29/2013 Pneumococcal Vaccine: 50+ Years Completed 05/09/2016, 07/25/2015, 06/01/2013, Additional history [...] patient's age to complete this topic Meningococcal B Vaccine Aged Out No l onger eligible based on patient's age to complete this topic RSV Immunization Patients Under 20 months Aged Out No longer eligible based on patient's age to complete this topic Varicella Vaccines Aged Out No longer eligible based on patient's age to complete this topic Procedures Procedure Name Priority Date/Time Associated Diagnosis Comments EXTERNAL XRAY REPORT 09/19/2024 MICROALBUMIN CREATININE URINE RATIO Routine 09/12/2024 12:56 PM EST DM (diabetes mellitus), type 2 with peripheral vascular complications ([facility] V24, [facility] V28) Hypertension, unspecified type Stage 3a chronic kidney disease (CKD) ([facility] V24, [facility] V28) Hypothyroidism, unspecified type Type II or unspecified type diabetes mellitus with neurological manifestations, not stated as uncontrolled(250.60) ([facility] V24, [facility] V28) Primary hypertension Encounter for long-term (current) use of medications Pure hypercholesterolemia LIPID PANEL WITH REFLEX TO DIRECT LDL Routine 09/09/2024 9:42 AM EST Pure hypercholesterolemia COMPREHENSIVE METABOLIC PANEL Routine 09/09/2024 9:42 AM EST Primary hypertension Type II or unspecified type diabetes mellitus with neurological manifestations, not stated as uncontrolled(250.60) ([facility] V24, [facility] V28) Stage 3a chronic kidney disease (CKD) ([facility] [place], [facility] V28) Encounter for long-term (current) use of medications HEMOGLOBIN A1C Routine 09/09/2024 9:42 AM EST DM (diabetes mellitus), type 2 with peripheral vascular complications ([facility] [place], [facility] V28) Hypertension, unspecified type Stage 3a chronic kidney disease (CKD) ([facility] [place], [facility] V28) Hypothyroidism, unspecified type Type II or unspecified type diabetes mellitus with neurological manifestations, not stated as uncontrolled(250.60) ([facility] [place], [facility] V28) THYROID STIMULATING HORMONE WITH REFLEX TO FREE T4 AND FREE T3 Routine 09/09/2024 9:42 AM EST DM (diabetes mellitus), type 2 with peripheral vascular complications ([facility] V24, [facility] V28) Hypertension, unspecified type Stage 3a chronic kidney disease (CKD) ([facility] [place], [facility] V28) Hypothyroidism, unspecified type Type II or unspecified type diabetes mellitus with neurological manifestations, not stated as uncontrolled(250.60) ([facility] V24, [facility] V28) DIABETES EYE EXAM Routine 06/30/2023 COLONOSCOPY Routine 03/27/2017 HEPATITIS C SCREENING Routine 06/29/2013 from Last 3 Months or Most Recently Relevant to Health Maintenance Results * External Xray Report (09/19/2024) Anatomical Region Laterality Modality Radiographic Celina ging Provider [facility] XR PROCEDURES Final Result * Microalbumin creatinine urine ratio (09/12/2024 12:56 PM EST) Creatinine, Urine 71.0 mg/dL LAB CHEMISTRY METHOD 09/12/2024 5:09 PM EST [facility] Microalb, Ur 7.3 0.0 - 29.0 mg/L LAB CHEMISTRY METHOD 09/12/2024 5:09 PM EST [facility] Microalb/Creat Ratio 10 <30 mg/g creat LAB CHEMISTRY METHOD 09/12/2024 5:09 PM [facility] Urine Urine specimen obtained by clean catch procedure / Unknown Non-blood Collection / Unknown 09/12/2024 12:56 PM EST 09/12/2024 12:56 PM EST Marissa DODSON LAB URINE ORDERABLES Final Resul t Performing Organization Address [facility] Co de Phone Number [facility] [address] [place] [address], [place] [phone] * Thyroid stimulating hormone with reflex to free t4 and free t3 (09/09/2024 9:42 AM EST) TSH 0.62 0.40 - 4.00 mcIU/mL LAB CHEMISTRY METHOD 09/09/2024 12:45 PM [facility] Blood Venous blood specimen / Unknown Venipuncture / Unknown 09/09/2024 9:42 AM EST 09/09/2024 9:42 AM EST Marissa DODSON LAB BLOOD ORDERABLES Final Resul t Performing Organization Address [facility] Co de Phone Number [facility] [address] [place] [address], [place] [phone] * (ABNORMAL) Lipid panel with reflex to direct LDL (09/09/2024 9:42 AM EST) Cholesterol 157 0 - 200 mg/dL LAB CHEMISTRY METHOD 09/09/2024 2:31 PM [facility] Triglycerides 174(H) 0 - 150 mg/dL LAB CHEMISTRY METHOD 09/09/2024 2:31 PM [facility] HDL 40 >=40 mg/dL LAB CHEMISTRY METHOD 09/09/2024 2:31 PM [facility] LDL Calculated 82 0 - 100 mg/dL LAB CHEMISTRY METHOD 09/09/2024 2:31 PM EST [facility] VLDL Cholesterol Miller 34.8 mg/dL LAB CHEMISTRY METHOD 09/09/2024 2:31 PM EST [facility] Non HDL Chol. (LDL+VLDL) 117 <145 mg/dL LAB CHEMISTRY METHOD 09/09/2024 2:31 PM EST [facility] Chol/HDL Ratio 3.9 0.0 - 4.4 LAB CHEMISTRY METHOD 09/09/2024 2:31 PM EST [facility] Blood Venous blood specimen / Unknown Venipuncture / Unknown 09/09/2024 9:42 AM EST 09/09/2024 9:42 AM EST us Davonet Reid MD LAB BLOOD ORDERABLES Final Resu lt Performing Organization Address City/[facility]/ZIP Co de Phone Number [facility] [address] [place] [address], [place] [phone] * (ABNORMAL) Hemoglobin A1c (09/09/2024 9:42 AM EST) Pathologist [facility] Hemoglobin A1C 8.8(H) <6.5 % LAB CHEMISTRY METHOD 09/09/2024 1:32 PM EST [facility] Mean Bld Glu Estim. 206 mg/dL LAB CHEMISTRY METHOD 09/09/2024 1:32 PM EST [facility] Blood Venous blood specimen / Unknown Venipuncture / Unknown 09/09/2024 9:42 AM EST 09/09/2024 9:42 AM EST us Marissa DODSON LAB BLOOD ORDERABLES Final Resul t Performing Organization Address [facility]/ZIP Co de Phone Number [facility] [address] [place] [address], [place] [phone] * (ABNORMAL) Comprehensive metabolic panel (09/09/2024 9:42 AM EST) Sodium 135 133 - 145 mmol/L LAB CHEMISTRY METHOD 09/09/2024 2:31 PM [facility] Potassium 4.1 3.5 - 5.5 mmol/L LAB CHEMISTRY METHOD 09/09/2024 2:31 PM [facility] Chloride 106 96 - 110 mmol/L LAB CHEMISTRY METHOD 09/09/2024 2:31 PM [facility] CO2 20(L) 21 - 32 mmol/L LAB CHEMISTRY METHOD 09/09/2024 2:31 PM [facility] Anion Gap 9 3 - 11 LAB CHEMISTRY METHOD 09/09/2024 2:31 PM [facility] Glucose 168(H) 70 - 100 mg/dL LAB CHEMISTRY METHOD 09/09/2024 2:31 PM [facility] BUN 16 5 - 25 mg/dL LAB CHEMISTRY METHOD 09/09/2024 2:31 PM [facility] Creatinine 1.06 0.50 - 1.10 mg/dL LAB CHEMISTRY METHOD 09/09/2024 2:31 PM [facility] eGFR 54(L) >=60 mL/min/1. 73m2 LAB CHEMISTRY METHOD 09/09/2024 2:31 PM [facility] Comment:Calculation based on the??Chronic Kidney Disease Epidemiology Collaboration (CKD-EPI) equation refit??without adjustment for race. BUN/Creatinine Ratio 15.1 LAB CHEMISTRY METHOD 09/09/2024 2:31 PM [facility] Calcium 9.9 8.5 - 10.5 mg/dL LAB CHEMISTRY METHOD 09/09/2024 2:31 PM [facility] AST (SGOT) 43(H) 10 - 42 unit/L LAB CHEMISTRY METHOD 09/09/2024 2:31 PM [facility] ALT (SGPT) 62(H) 10 - 60 unit/L LAB CHEMISTRY METHOD 09/09/2024 2:31 PM [facility] Alkaline Phosphatase 74 42 - 121 unit/L LAB CHEMISTRY METHOD 09/09/2024 2:31 PM EST [facility] Total Protein 7.6 6.0 - 8.0 g/dL LAB CHEMISTRY METHOD 09/09/2024 2:31 PM EST [facility] Albumin 4.1 3.2 - 5.0 g/dL LAB CHEMISTRY METHOD 09/09/2024 2:31 PM EST [facility] Total Bilirubin 0.4 0.0 - 1.4 mg/dL LAB CHEMISTRY METHOD 09/09/2024 2:31 PM EST [facility] Blood Venous blood specimen / Unknown Venipuncture / Unknown 09/09/2024 9:42 AM EST 09/09/2024 9:42 AM EST Davonte Reid MD LAB BLOOD ORDERABLES Final Resu lt [facility] [address] [place] [address], * Diabetes Eye Exam (06/30/2023) [facility] Diabetes: Annual Retina Eye Exam Abstracted Historical Provider HEALTH MAINTENANCE Final Result * Colonoscopy (03/27/2017) [facility] Colonoscopy No interpretation , abstracted Anatomical Region Laterality Modality Other Historical Provider HEALTH MAINTENANCE Final Result * Hepatitis C Screening (06/29/2013) [facility] Hepatitis C Screening Abstracted Historical Provider HEALTH MAINTENANCE Final Result from Last 3 Months or Most Recently Relevant to Health Maintenance Insurance [employer] Member Subscriber Plan / Payer (Ef fective 2013-Present) Name:Veronica Arroyo I Relation to Subscriber:Self Name:Veronica Arroyo I Payer ID:[id number] Group ID:[id number] Type:Not on file Address: [place] [address] [place] [address] Care Teams Labor Relations Specialist Relationship Specialty Start Date End Date Davonte Reid MD [address] [place] [id number] PCP - General Internal Medicine 03/10/19
--- OUTSIDE RECORDS SUMMARY | 2024-12-08 17:19 | XMS_ITS | Patient Health Record ---
Author Organization [facility] Address [address] [place] [address] Care Team Providers Care Telephone Order Clerk Room Service Name Role Phone Davonte Reid MD Primary Care Provider Jake Wilcox [phone] Allergies Allergen (clinical drug ingredient) Drug/Non Drug Allergy documented on EMR Reaction Allergy Type Onset Date Status morphine Morphine Unknown Drug Allergy Active oxycodone Oxycodone Unknown Drug Allergy Active codeine Codeine Unknown Drug Allergy Active nasea medications (uncoded) Unknown Allergy Active Reason For Referral No Information Medications Medication SIG (Take, Route, Frequency, Duration) Notes [...] ER 50 MG Oral for 90 Active Social History Tobacco Use: Social History Observation Description Date Details (start date - stop date) Never Smoker NA - NA Tobacco Use/Smoking Question Answer Notes Patient is a nonsmoker Alcohol Screen Question Answer Notes Did you have a drink containing alcohol in the p ast year? No Points 0 Interpretation Negative Problems Problem Type SNOMED Code ICD Code Onset Dates Problem Status W/U Status Risk Notes Problem 389929172 Colon cancer screening (Z12.11) Active confirmed Problem Diverticular disease of colon (078911867) Diverticulosis of large intestine without perforation or abscess without bleeding (K57.30) Active confirmed Problem 326164044500954 Preprocedural examination (Z01.818) Active confirmed Plan Of Treatment Future Test Test Name Order Date COLONOSCOPY 01/20/2023 Insurance Providers Payer Name Payer Address Payer Phone Subscriber Number Group Number Insured Name Patient Relationship to Insured Coverage Start Date Coverage End Date [facility] [address] Attn [place] [id number] IMGUELITO NANCE Self - patient is the insured Medical (General) History Medical History History ICD Code NIDDM hypertension hypercholesterolemia emphysema Hypothyroidism Negative screening colonoscopy in 2010 Denies RI,CVA,renal disease Surgical History Surgery Date(Month/Year)
--- OUTSIDE RECORDS SUMMARY | 2024-12-08 17:19 | XMS_ITS ---
Author Organization [facility] Address [address] [place] [address] Care Team Providers Care Office Agent Name Role Phone Davonte Reid MD Primary Care Provider Jake Wilcox [phone] REASON FOR VISIT screening Problems Problem Type SNOMED Code ICD Code Onset Dates Problem Status W/U Status Risk Notes Problem Diverticular disease of colon (236037736) Diverticulosis of large intestine without perforation or abscess without bleeding (K57.30) Active confirmed Encounters Encounter Location Date Provider Diagnosis [facility] [address] [place], [place] [id number] 06/22/2023 Jake Montalvo Encounter for scre ening colonoscopy Z12.11 ; Colon polyps K63.5 ; Diverticulosis of large intestine without perforation or abscess without bleeding K57.30 and Other hemorrhoids K64.8 Assessments Encounter Date Diagnosis (ICD Code) Assessment Notes Treatment Notes Treatment Clinical Notes Section Notes 06/22/2023 Encounter for screening colonoscopy (ICD-10 - Z12.11) 06/22/2023 Colon polyps (ICD-10 - K63.5) 06/22/2023 Diverticulosis of large intestine without perforation or abscess without bleeding (ICD-10 - K57.30) 06/22/2023 Other hemorrhoids (ICD-10 - K64.8) Plan Of Treatment No Information Progress Notes * MIGUELITO NANCE IDOB: (79 yo F)Acc No.[id number]:06/22/2023 COLON WITH MAC Patient:?MIGUELITO NANCE I Provider:?Jake Montalvo MD :1945???Age:78 Y???Sex:Female D ate:06/22/2023 Address:[address] [place] [address] Pcp:Davonte Reid MD Subjective: * Chief Complaints: * ???1. Screening. * Medical History:? Objective: * Vitals:? Assessment: * Assessment: 1.?Encounter for screening c olonoscopy - Z12.11 (Primary)???2.?Colon polyps - K63.5???3.?Diverticulosis of large intestine without perforation or abscess without bleeding - K57.30???4.?Other hemorrhoids - K64.8??? Plan: * Treatment: * Procedure Codes:?31602 LESIO N REMOVAL COLONOSCOPY, Modifiers: 33 , 89033 COLONOSCOPY AND BIOPSY, Modifiers: 59 , 33 * * The named appointment provid er may or may not be the originator of this progress note, and it is not deemed complete until electronically signed by the appointment provider. Sign off status: Pending * Provider:?Jake Montalvo MD Date:? 023 Generated for Joanne gardiner/Trell/eTransmitting on:?12/08/2024 05:18 PM EDT
== END 2024-12-08 14:16 | disposition home or self-care (01) ==
LOC: HO.ED 14:17
PROVIDERS: Emergency Provider Emergency Medicine; PCP Internal Medicine
DX: M25.511 Pain in right shoulder (principal); R00.1 Bradycardia, unspecified
CPT/HCPCS: 73030; 93005; 99283

== ENCOUNTER → 2024-12-08 11:20 | Outpatient (BNV) | payer OTHER, SELFPAY | PROVIDERS: PCP Internal Medicine; Visit Provider Radiology Diagnostic Radiology | DX: M79.601 Pain in right arm (principal) | CPT/HCPCS: 73030 ==

== ENCOUNTER → 2024-12-08 13:30 | Outpatient (BNV) | payer OTHER, SELFPAY | PROVIDERS: Emergency Provider Emergency Medicine; PCP Internal Medicine; Visit Provider Internal Medicine Cardiovascular Disease | DX: R00.1 Bradycardia, unspecified (principal) | CPT/HCPCS: 93010 ==

== ENCOUNTER 2024-12-26 10:11 | Outpatient (AMB) | payer OTHER, SELFPAY ==
--- NOTE | 2024-12-26 10:19 | MHC.OFFVIS ---
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 Patient was seen at [facility] due to right arm pain for 3+ months that was progressively getting worse. No known injury/falls. Patient reports pain is constant, limited ROM, radiates down her arm. Denies numbness or tingling in hands. States she was Rx muscles relaxer and steroids that helped some what for about 3-4 days. Hx of DM. She is not interested in therapy and is open to discussing injection. Allergies levofloxacin [From LEVAQUIN] Allergy (Intermediate, Verified 12/26/24 10:21) RASH ondansetron [From ZOFRAN] Allergy (Intermediate, Verified 12/26/24 10:21) HIVES Penicillins [PENICILLINS] Allergy (Intermediate, Verified 12/26/24 10:21) RASH hydromorphone [From DILAUDID] Allergy (Unknown, Verified 12/26/24 10:21) Unknown tramadol [TRAMADOL] Allergy (Unknown, Verified 12/26/24 10:21) Unknown codeine [CODEINE] Adverse Reaction (Intermediate, Verified 12/26/24 10:21) N/V morphine [MORPHINE] Adverse Reaction (Intermediate, Verified 12/26/24 10:21) N/V Medication List - Last Reconciled 12/26/24 by Kasey Murcia PA-C acetaminophen 1,000 mg (2 x 500 mg) PO QID PRN albuterol sulfate 90 mcg/actuation 2 puffs inhalation Q4-6H PRN benzonatate 100 mg PO TID PRN cyclobenzaprine 5 mg PO TID PRN ibuprofen 600 mg PO Q6H PRN levothyroxine 150 mcg PO DAILY lidocaine 4% 1 patch topical DAILY PRN lidocaine 5% 1 patch topical DAILY metformin 1,000 mg PO BID metoprolol succinate ER 50 mg PO DAILY simvastatin 20 mg PO BEDTIME sitagliptin phosphate (Januvia) 100 mg PO DAILY zolpidem 5 mg PO BEDTIME 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 This pain primarily occurs at night and with shoulder movement, limiting her ability to sleep comfortably. She avoids heavy lifting, as it might exacerbate her shoulder discomfort, although actual lifting does not elicit pain. She was seen in the ED, xrays obtained and she states she was given medication to help with pain, but it did increase her sugar levels to 300. [facility] Medical History Degenerative joint disease (DJD) of hip Erythrocytosis Diverticulosis Insomnia Diabetes Hypothyroid Hyperlipidemia HTN (hypertension) Surgical History History of esophagogastroduodenoscopy (EGD) H/O colonoscopy Social History Alcohol intake: never Patient Tobacco Use Status: Never used Tobacco Review of Systems Const All systems reviewed & are unremarkable except as noted in HPI and below Physical Exam Vital Signs: BMI result Body Mass Index 27.8 Const General: cooperative and no acute distress Orientation/consciousness: patient oriented x3 Resp Effort & Inspection: normal respiratory effort and able to speak in complete sentences Cardio Peripheral pulses: Peripheral pulses 2+ throughout Neuro General: patient oriented x3 Extrem Other: Right shoulder normal to inspection. Tenderness over the bicipital groove and along deltoid region of the shoulder. FF to 175, ER to 90, IR to S1. 5/5 RTC strength, negative obando, cross body abduction. NVI. Results Reviewed Results Reviewed: xrays of the right shoulder 12/08/24 show well preserved joint space Assessment & Plan Assessment & Plan (1) Tendinitis of right rotator cuff: Code(s): M75.81 - Other shoulder lesions, right shoulder Category: Medical Plan: We will manage the patient's chronic right shoulder pain using home exercises to enhance muscle strength and posture, considering her prior unsatisfactory response to physical therapy. Celebrex has been prescribed to manage pain and inflammation. The option to pursue corticosteroid injections remains pending discussion with her primary care doctor due to concerns about diabetes management. Meanwhile, the patient is advised to apply dietary measures to manage her sugar levels and to contact me if she decides to proceed with an injection. Otherwise follow up as needed Patient was informed and verbally consented to the use of an ambient scribe for clinic note documentation during this visit. Medications: New celecoxib (Celebrex) 200 mg PO BID 60 caps 3RF 30 days Coding Level of Care Code New Pt Level 3 (40098) Complex EM visit Add On G2211 Diagnoses Tendinitis of right rotator cuff M75.81
[2024-12-26 10:20] VITALS: BMI 27.8
--- OUTSIDE RECORDS SUMMARY | 2024-12-26 11:26 | XMS_ITS | Patient Health Record ---
Author Organization [facility] Address [address] [place] [address] Care Team Providers Care Choirmaster Name Role Phone Davonte Reid MD Primary Care Provider Jake Wilcox [phone] Allergies Allergen (clinical drug ingredient) Drug/Non Drug [...] Problem Status W/U Status Risk Notes Problem 448084271 Colon cancer screening (Z12.11) Active confirmed Problem Diverticular disease of colon (620565566) Diverticulosis of large intestine without perforation or abscess without bleeding (K57.30) Active confirmed Problem 891777992716773 Preprocedural examination (Z01.818) Active confirmed Plan Of Treatment Future Test Test Name Order Date COLONOSCOPY 01/20/2023 Insurance Providers Payer Name Payer Address Payer Phone Subscriber Number Group Number Insured Name Patient Relationship to Insured Coverage Start Date Coverage End Date [facility] [address] Attn [place] [id number] MIGUELITO NANCE Self - patient is the insured Medical (General) History Medical History History ICD Code NIDDM hypertension hypercholesterolemia emphysema Hypothyroidism Negative screening colonoscopy in 2010 Denies [place],CVA,renal disease Surgical History Surgery Date(Month/Year)
--- OUTSIDE RECORDS SUMMARY | 2024-12-26 11:26 | XMS_ITS | Clinical Summary ---
Author Organization [facility] Address [address] [place] [address] Phone Care Team Providers Care Keno Terminal Operator Name Role Phone Davonte Reid MD Primary Care Provider [phone] Allergies Active Allergy Reactions Criticality Noted Date [...] mellitus with diabetic peripheral angiopathy without gangrene ([facility] V24, [facility] V28) TOME DOS TABLETAS POR VIA ORAL [...] 5 MG. 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 09/28/2022 Spondylosis of lumbar region without myelopathy or radiculopathy 09/28/2022 Type II or unspecified type diabetes mellitus with neurological manifestations, not stated as uncontrolled(250.60) ([facility] V24, [facility] V28) 07/21/2018 Assessment & Plan (08/01/2024 11:41 AM EST): Orders: Hemoglobin A1c; Future Comprehensive metabolic panel; Future Microalbumin creatinine urine ratio; Future DM (diabetes mellitus), type 2 with peripheral vascular complications ([facility] V24, [facility] V28) 03/03/2018 Diverticulitis 01/09/2017 Overview (05/25/2024): First episode 2017. Onychomycosis 12/31/2015 Erythrocytosis 11/14/2014 Insomnia 08/08/2013 Assessment & Plan (08/01/2024 11:41 AM EST): Condition not found 12/17/2012 Overview (05/25/2024): DM (diabetes mellitus) type II uncontrolled with eye manifestation Encounters Date Type Department Care Team Description 11/02/2024 10:00 AM EDT Office Visit [address] [phone] Marissa Bernal PA DM (diabetes mellitus), type 2 with peripheral vascular complications ([facility] V24, [facility] V28) (Primary Dx); Hypothyroidism, unspecified type; Primary hypertension; Hyperlipidemia, unspecified hyperlipidemia type from Last 3 Months Immunizations Name Administration [...] Care Team (Late st Contact Info) Description 02/03/2025 1:15 PM EDT Office Visit [facility] [address] [phone] Davonte Reid MD [address] [place] [address] 06/14/2025 10:00 AM EDT Office Visit Endocrinology [address] [phone] Marissa Bernal PA [address] [place] [address] Health Maintenance Due Date Last Done Comments [...] mellitus), type 2 with peripheral vascular complications ([facility] V24, [facility] V28) Hypertension, unspecified type Stage 3a chronic kidney disease (CKD) ([facility] V24, [facility] V28) Hypothyroidism, unspecified type Type II or unspecified type diabetes mellitus with neurological manifestations, not stated as uncontrolled(250.60) ([facility] V24, [facility] V28) Primary hypertension Encounter for long-term (current) use of medications Pure hypercholesterolemia COMPREHENSIVE METABOLIC PANEL Routine 09/09/2024 9:42 AM EST Primary hypertension Type II or unspecified type diabetes mellitus with neurological manifestations, not stated as uncontrolled(250.60) ([facility] V24, [facility] V28) Stage 3a chronic kidney disease (CKD) ([facility] V24, [facility] V28) Encounter for long-term (current) use of medications HEMOGLOBIN A1C Routine 09/09/2024 9:42 AM EST DM (diabetes mellitus), type 2 with peripheral vascular complications ([facility] V24, [facility] V28) Hypertension, unspecified type Stage 3a chronic kidney disease (CKD) ([facility] V24, [facility] V28) Hypothyroidism, unspecified type Type II or unspecified type diabetes mellitus with neurological manifestations, not stated as uncontrolled(250.60) ([facility] V24, [facility] V28) LIPID PANEL WITH REFLEX TO DIRECT LDL Routine 09/09/2024 9:42 AM EST Pure hypercholesterolemia DIABETES EYE EXAM Routine 06/30/2023 COLONOSCOPY Routine 03/27/2017 HEPATITIS C SCREENING Routine 06/29/2013 from Last 3 Months or Most Recently Relevant to Health Maintenance Results * Microalbumin creatinine urine ratio (09/12/2024 12:56 PM EST) Creatinine, Urine 71.0 mg/dL LAB CHEMISTRY METHOD 09/12/2024 5:09 PM [facility] Microalb, Ur 7.3 0.0 - 29.0 mg/L LAB CHEMISTRY METHOD 09/12/2024 5:09 PM [facility] Microalb/Creat Ratio 10 <30 mg/g creat LAB CHEMISTRY METHOD 09/12/2024 5:09 PM [facility] Urine Urine specimen obtained by clean catch procedure / Unknown Non-blood Collection / Unknown 09/12/2024 12:56 PM EST 09/12/2024 12:56 PM EST Marissa DODSON LAB URINE ORDERABLES Final Resul t [facility] [address] [place] [address], [place] [phone] * (ABNORMAL) Lipid panel with reflex to direct LDL (09/09/2024 9:42 AM EST) Cholesterol 157 0 - 200 mg/dL LAB CHEMISTRY METHOD 09/09/2024 2:31 PM [facility] Triglycerides 174(H) 0 - 150 mg/dL LAB CHEMISTRY METHOD 09/09/2024 2:31 PM [facility] HDL 40 >=40 mg/dL LAB CHEMISTRY METHOD 09/09/2024 2:31 PM [facility] LDL Calculated 82 0 - 100 mg/dL LAB CHEMISTRY METHOD 09/09/2024 2:31 PM [facility] VLDL Cholesterol Miller 34.8 mg/dL LAB CHEMISTRY METHOD 09/09/2024 2:31 PM [facility] Non HDL Chol. (LDL+VLDL) 117 <145 mg/dL LAB CHEMISTRY METHOD 09/09/2024 2:31 PM EST [facility] Chol/HDL Ratio 3.9 0.0 - 4.4 LAB CHEMISTRY METHOD 09/09/2024 2:31 PM EST [facility] Blood Venous blood specimen / Unknown Venipuncture / Unknown 09/09/2024 9:42 AM EST 09/09/2024 9:42 AM EST Davonte Reid MD LAB BLOOD ORDERABLES Final Resu lt Performing Organization Address [facility]/ZIP Co de Phone Number [facility] [address] [place] [address], [place] [phone] * (ABNORMAL) Hemoglobin A1c (09/09/2024 9:42 AM EST) Hemoglobin A1C 8.8(H) <6.5 % LAB CHEMISTRY METHOD 09/09/2024 1:32 PM EST [facility] Mean Bld Glu Estim. 206 mg/dL LAB CHEMISTRY METHOD 09/09/2024 1:32 PM [facility] Blood Venous blood specimen / Unknown Venipuncture / Unknown 09/09/2024 9:42 AM EST 09/09/2024 9:42 AM EST Marissa DODSON LAB BLOOD ORDERABLES Final Resul t Performing Organization Address City/[facility]/ZIP Co de Phone Number [facility] [address] [place] [address], [place] [phone] * (ABNORMAL) Comprehensive metabolic panel (09/09/2024 9:42 AM EST) Sodium 135 133 - 145 mmol/L LAB CHEMISTRY METHOD 09/09/2024 2:31 PM EST [facility] Potassium 4.1 3.5 - 5.5 mmol/L LAB CHEMISTRY METHOD 09/09/2024 2:31 PM EST [facility] Chloride 106 96 - 110 mmol/L LAB CHEMISTRY METHOD 09/09/2024 2:31 PM [facility] CO2 20(L) 21 - 32 mmol/L LAB CHEMISTRY METHOD 09/09/2024 2:31 PM [facility] Anion Gap 9 3 - 11 LAB CHEMISTRY METHOD 09/09/2024 2:31 PM [facility] Glucose 168(H) 70 - 100 mg/dL LAB CHEMISTRY METHOD 09/09/2024 2:31 PM [facility] BUN 16 5 - 25 mg/dL LAB CHEMISTRY METHOD 09/09/2024 2:31 PM [facility] Creatinine 1.06 0.50 - 1.10 mg/dL LAB CHEMISTRY METHOD 09/09/2024 2:31 PM [facility] eGFR 54(L) >=60 mL/min/1. 73m2 LAB CHEMISTRY METHOD 09/09/2024 2:31 PM [facility] Comment:Calculation based on the??Chronic Kidney Disease Epidemiology Collaboration (CKD-EPI) equation refit??without adjustment for race. BUN/Creatinine Ratio 15.1 LAB CHEMISTRY METHOD 09/09/2024 2:31 PM [facility] Calcium 9.9 8.5 - 10.5 mg/dL LAB CHEMISTRY METHOD 09/09/2024 2:31 PM [facility] AST (SGOT) 43(H) 10 - 42 unit/L LAB CHEMISTRY METHOD 09/09/2024 2:31 PM [facility] ALT (SGPT) 62(H) 10 - 60 unit/L LAB CHEMISTRY METHOD 09/09/2024 2:31 PM [facility] Alkaline Phosphatase 74 42 - 121 unit/L LAB CHEMISTRY METHOD 09/09/2024 2:31 PM [facility] Total Protein 7.6 6.0 - 8.0 g/dL LAB CHEMISTRY METHOD 09/09/2024 2:31 PM [facility] Albumin 4.1 3.2 - 5.0 g/dL LAB CHEMISTRY METHOD 09/09/2024 2:31 PM EST [facility] Total Bilirubin 0.4 0.0 - 1.4 mg/dL LAB CHEMISTRY METHOD 09/09/2024 2:31 PM EST [facility] Blood Venous blood specimen / Unknown Venipuncture / Unknown 09/09/2024 9:42 AM EST 09/09/2024 9:42 AM EST Davonte Reid MD LAB BLOOD ORDERABLES Final Resu lt [facility] [address] [place] [address], * Diabetes Eye Exam (06/30/2023) Pathologist [facility] Diabetes: Annual Retina Eye Exam Abstracted Historical Provider HEALTH MAINTENANCE Final Result * Colonoscopy (03/27/2017) Pathologist [facility] Colonoscopy No interpretation , abstracted Anatomical Region Laterality Modality Other Historical Provider HEALTH MAINTENANCE Final Result * Hepatitis C Screening (06/29/2013) Pathologist [facility] Hepatitis C Screening Abstracted Historical Provider HEALTH MAINTENANCE Final Result from Last 3 Months or Most Recently Relevant to Health Maintenance Insurance [facility] MEDICARE Member Subscriber Plan / Payer (Ef fective 2013-Present) Name:Veronica Arroyo I Relation to Subscriber:Self Name:Veronica Arroyo I Payer ID:[id number] Group ID:[id number] Type:Not on file Address: [facility] [address] [place] [address] Care Teams Keno Terminal Operator Relationship Specialty Start Date End Date Davonte Reid MD [address] [place] [address] PCP - General Internal Medicine 03/10/19
== END 2024-12-26 10:46 | disposition home or self-care (01) ==
LOC: HO.HOS 10:12
PROVIDERS: PCP Internal Medicine; Visit Provider Physician Assistant
DX: M75.81 Other shoulder lesions, right shoulder (principal)
CPT/HCPCS: 99204; G2211

== ENCOUNTER → 2024-12-26 10:11 | Outpatient (BNVA) | payer OTHER, SELFPAY | PROVIDERS: PCP Internal Medicine; Visit Provider Physician Assistant | DX: M75.81 Other shoulder lesions, right shoulder (principal) | CPT/HCPCS: 99202 ==

== ENCOUNTER 2025-03-22 14:14 | Outpatient (AMB) | payer OTHER, SELFPAY ==
[2025-03-22 14:20] VITALS: BMI 31.5
--- NOTE | 2025-03-22 14:20 | MHC.OFFVIS ---
Vital Signs 03/22/25 14:20 Height 5 ft 2 in Weight 172 lb BMI 31.5 Intake Visit Reasons: right shoulder injection (40) Intake Note: Veronica is a 79 year old female who presents today for a right shoulder injection. At her last visit on 12/26/24, injection was on hold, pending discuss with her PCP due to concerns of diabetes management. Patient reports she is in constant pain, radiates down the lateral aspect of her arm. Allergies levofloxacin (From LEVAQUIN) Allergy (Intermediate, Verified 03/22/25 14:28) RASH ondansetron (From ZOFRAN) Allergy (Intermediate, Verified 03/22/25 14:28) HIVES Penicillins (PENICILLINS) Allergy (Intermediate, Verified 03/22/25 14:28) RASH hydromorphone (From DILAUDID) Allergy (Unknown, Verified 03/22/25 14:28) Unknown tramadol (TRAMADOL) Allergy (Unknown, Verified 03/22/25 14:28) Unknown codeine (CODEINE) Adverse Reaction (Intermediate, Verified 03/22/25 14:28) N/V morphine (MORPHINE) Adverse Reaction (Intermediate, Verified 03/22/25 14:28) N/V Medication List - Last Reconciled 03/22/25 by Kasey Murcia PA-C acetaminophen 1,000 mg (2 x 500 mg) PO QID PRN albuterol sulfate 90 mcg/actuation 2 puffs inhalation Q4-6H PRN benzonatate 100 mg PO TID PRN celecoxib (Celebrex) 200 mg PO BID 30 days cyclobenzaprine 5 mg PO TID PRN ibuprofen 600 mg PO Q6H PRN levothyroxine 150 mcg PO DAILY lidocaine 4% 1 patch topical DAILY PRN lidocaine 5% 1 patch topical DAILY metformin 1,000 mg PO BID metoprolol succinate ER 50 mg PO DAILY simvastatin 20 mg PO BEDTIME sitagliptin phosphate (Januvia) 100 mg PO DAILY zolpidem 5 mg PO BEDTIME HPI HPI right shoulder injection (40): Details: 79-year-old female returns to the office today for ongoing right shoulder pain which continues to limit her ability to perform daily activities like reaching over her head or behind her body. She does has a history of diabetes which is well controlled. [facility] Medical History Degenerative joint disease (DJD) of hip Erythrocytosis Diverticulosis Insomnia Diabetes Hypothyroid Hyperlipidemia HTN (hypertension) Surgical History History of esophagogastroduodenoscopy (EGD) H/O colonoscopy Social History (Reviewed 12/26/24 @ 10:21 by Matilde Vale [facility]) Alcohol intake: never Patient Tobacco Use Status: Never used Tobacco Review of Systems Const All systems reviewed & are unremarkable except as noted in HPI and below Physical Exam Vital Signs: BMI result Body Mass Index 31.5 Const General: cooperative and no acute distress Orientation/consciousness: patient oriented x3 Resp Effort & Inspection: normal respiratory effort and able to speak in complete sentences Cardio Peripheral pulses: Peripheral pulses 2+ throughout Neuro General: patient oriented x3 Extrem Other: Right shoulder normal to inspection. Tenderness over the bicipital groove and along deltoid region of the shoulder. FF to 175, ER to 90, IR to S1. 5/5 RTC strength, negative obando, cross body abduction. NVI. Office Procedures AMB Joint Injection/Aspiration Joint Injection/Aspiration Primary Site: right shoulder Prep: site was prepped using aseptic technique, ethochloride spray was applied and injection warnings given Injected: 40 mg of, DepoMedrol, with 8 mL of, 1% plain lidocaine and in the subcromial space Approach Used: posterolateral Coding 52145 - Glenohumeral/Tronchanteric Bursa/Intraarticular Procedure code (CPT) selection complete Assessment & Plan Assessment & Plan (1) Tendinitis of right rotator cuff: Code(s): M75.81 - Other shoulder lesions, right shoulder Category: Medical Plan: We discussed options today, which include steroid injection. The patient did consent to move forward with the injection, which was tolerated well.? I recommended rest, ice and elevation and OTC antiinflammatories prn for discomfort. If symptoms persist over the next 6-8 weeks, they will contact our office, otherwise, prn We also discussed their diabetes and the effect the steroid can have on thier blood glucose levels; therefore, they will continue to monitor these very closely over the next 72 hours Coding Level of Care Code Est Pt Level 3 (76847) Complex EM visit Add On G2211 Diagnoses Tendinitis of right rotator cuff M75.81 CPT Codes Coding - Joint 7: 77601 - Glenohumeral/Tronchanteric Bursa/Intraarticular ([id number])
--- OUTSIDE RECORDS SUMMARY | 2025-03-22 14:56 | XMS_ITS | Clinical Summary ---
Author Organization [facility] Address [address] [place] [phone] Phone Care Team Providers Care Street Light Wirer Name Role Phone Davonte Reid MD Primary Care Provider + Social History Tobacco Use Types Packs/Day Years Used Date Smoking Tobacco: Never Assessed Comments Unknown Sex and Gender Information Value Date Recorded Sex Assigned at Not on file Legal Sex Female 8:21 AM EDT Gender Identity Not on file Sexual Orientation Not on file Plan of Treatment Not on file Medical Devices Not on file Insurance [address] [place] [id number] [facility] MEDICARE [address]EMENT [address] [place] [id number] [facility] MEDICARE REPLACEMENT [address] [place] [address] MEDICARE REPLACEMENT MEDICARE REPLACEMENT MEDICARE REPLACEMENT [address] [place] [address] [facility] [employer] MEDICARE REPLACEMENT [place] [id number] Wirer Relationship Specialty Start Date End Date Davonte Reid MD [address] [place] [phone] PCP - General Internal Medicine 04/08/23 Additional Source Comments The information contained in this document represents components of the legal health record. It is not the complete legal health record[facility]
--- OUTSIDE RECORDS SUMMARY | 2025-03-22 14:56 | XMS_ITS | Clinical Summary ---
Author Organization [facility] [address] [facility] Address [address] [place] [address] Phone Care Team Providers Care Forensic Dna Analyst Name Role Phone Davonte Reid MD Primary Care Provider Allergies Active Allergy Reactions Criticality Noted Date [...] INSULIN PEN ONCE DAILY 01/15/20 24 Active diclofenac (VOLTAREN) 1 % topical gel PLACE 1 GRAM TOPICALLY 3 TIMES DAILY NEEDED FOR PAIN 300 g 1 08/09/20 24 Active blood sugar diagnostic (FreeStyle Lite Strips) test stripIndications :DM (diabetes mellitus), type 2 with peripheral vascular complications ([facility] V24, [facility] V28) USE TO CHECK BLOOD SUGAR TWICE A DAY 200 each 3 11/03/19 25 Active freestyle (FreeStyle Lancets) 28 gauge lancetsIndicatio ns:DM (diabetes mellitus), type 2 with peripheral vascular complications ([facility] V24, [facility] V28) USE TO TEST BLOOD SUGARS 2 TIMES A DAY 200 each 3 11/03/19 25 Active simvastatin (ZOCOR) 20 mg tablet Take 1 tablet daily at bedtime 30 tablet 5 11/03/19 25 Active metFORMIN XR (GLUCOPHAGE-XR) 500 mg 24 hr tabletIndication s:Type 2 diabetes mellitus with diabetic peripheral angiopathy without gangrene ([facility] V24, [facility] V28) TOME DOS TABLETAS POR VIA ORAL DOS VECES AL CHEMO CON LAS COMIDAS 360 tablet 1 11/22/19 25 Active valsartan-hydroC HLOROthiazide (DIOVAN-HCT) 320-25 mg per tablet Take 1 tablet by mouth 1 (one) time each day. 90 tablet 1 01/20/20 25 Active levothyroxine (SYNTHROID, LEVOTHROID) 150 mcg tabletIndication s:Hypothyroidism , unspecified TOME 1 TABLETA POR VIA ORAL TODOS [place] 30 tablet 5 02/22/20 25 Active zolpidem (AMBIEN) 5 mg tablet TAKE 1 TABLET BY MOUTH AT BEDTIME NEEDED FOR SLEEP. MAX DAILY AMOUNT: 5 MG. 28 tablet 02/24/20 25 Active Jardiance 25 mg tablet TOME 1 TABLETA POR VIA ORAL TODOS [place] 90 tablet 1 02/24/20 25 Active metoprolol succinate (TOPROL-XL) 50 mg 24 hr tablet TOME 1 TABLETA POR VIA ORAL TODOS [place] 90 tablet 1 03/06/20 25 Active Januvia 100 mg tablet TOME 1 TABLETA POR VIA ORAL TODOS [place] 90 tablet 1 03/21/20 25 Active metoprolol succinate (TOPROL-XL) 50 mg 24 hr tablet TOME NILAM TABLETA TODOS [place]ART[place] 90 tablet 1 09/08/19 25 025 Discontinued Januvia 100 mg tablet TOME 1 TABLETA POR VIA ORAL TODOS [place] 90 tablet 1 09/19/19 25 025 Discontinued Jardiance 25 mg tablet TOME 1 TABLETA POR VIA ORAL TODOS [place] 90 tablet 1 10/25/19 25 025 Discontinued levothyroxine (SYNTHROID, LEVOTHROID) 150 mcg tabletIndication s:Hypothyroidism , unspecified TOME 1 TABLETA POR VIA ORAL TODOS [place] 30 tablet 2 11/30/19 25 025 Discontinued zolpidem (AMBIEN) 5 mg tablet TAKE 1 TABLET BY MOUTH AT BEDTIME NEEDED FOR SLEEP. MAX DAILY AMOUNT: 5 MG. 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 09/28/2022 Spondylosis of lumbar region without myelopathy or radiculopathy 09/28/2022 Type II or unspecified type diabetes mellitus with neurological manifestations, not stated as uncontrolled(250.60) ([facility] [place] [facility] [place]) 07/21/2018 Assessment & Plan (08/01/2024 11:41 AM EST): Orders: Hemoglobin A1c; Future Comprehensive metabolic panel; Future Microalbumin creatinine urine ratio; Future DM (diabetes mellitus), type 2 with peripheral vascular complications ([facility] [place], [facility] V[facility]) 03/03/2018 Diverticulitis 01/09/2017 Overview (05/25/2024): First episode 2017. Onychomycosis 12/31/2015 Erythrocytosis 11/14/2014 Insomnia 08/08/2013 Assessment & Plan (08/01/2024 11:41 AM EST): Condition not found 12/17/2012 Overview (05/25/2024): DM (diabetes mellitus) type II uncontrolled with eye manifestation Encounters Date Type Department Care Team Description 03/02/2025 4:00 PM EDT - 03/02/2025 11:59 PM EDT Hospital Encounter Radiology Department - [address] [phone] Encounter for screening mammogram for breast cancer Discharge Disposition: Home or Self Care 02/03/2025 1:15 PM EDT Office Visit Adult Medicine [address] [phone] Davonte Reid MD Type II or unspecified type diabetes mellitus with neurological manifestations, not stated as uncontrolled(250.60) ([facility] V24, [facility] V28) (Primary Dx); Stage 3a chronic kidney disease (CKD) ([facility] V24, [facility] V28); Hypothyroidism, unspecified type; Pure hypercholesterolemia ; Primary hypertension; Encounter for long-term (current) use of medications; Right shoulder pain, unspecified chronicity; Primary insomnia from Last 3 Months Immunizations Name Administration [...] Date Smoking Tobacco: Never Smokeless Tobacco: Never Alcohol Use Standard Drinks/Week Comments No 0 (1 standard drink = 0.6 oz pur e alcohol) Comments No Sex and Gender Information Value Date Recorded Sex Assigned at Not on file Legal Sex Female 11:14 AM EST Gender Identity Not on file Sexual Orientation Not on file Obstetrics History Para Term AB IAB SAB Ectopic Multiple Livin g Live Births 2 2 2 2 Date Outcome GA Total Labor Labor/2nd/3rd Weight Sex Type Anes PTL Cyn A1 A5 Name Clin Term Term Last Filed Vital Signs Vital Sign Reading Time Taken Comments Blood Pressure 144/81 02/03/2025 1:[address] RAGE Pulse 59 02/03/2025 1:05 PM EDT Temperature 36.2 C (97.2 F) 02/03/2025 1:05 PM EDT Respiratory Rate 16 02/03/2025 1:05 PM EDT Oxygen Saturation 98% 02/03/2025 1:05 PM EDT Inhaled Oxygen Concentration - - Weight 69.4 kg (153 lb) 02/03/2025 1:05 PM EDT Height 157.5 cm (5' 2 ) 02/03/2025 1:05 PM EDT Body Mass Index 27.98 02/03/2025 1:05 PM EDT Plan of Treatment Upcoming Encounters Date Type Department Care Team (Late st Contact Info) Description 06/14/2025 10:00 AM EDT Office Visit Endocrinology - [place] [address] [place], [place] [phone] Marissa Bernal PA [address] [place] [address] 09/12/2025 9:45 AM EST Office Visit Adult Medicine [address] [phone] Davonte Reid MD [address] [place] [address] Health Maintenance Due Date Last Done Comments [...] Diabetes: Annual Retina Eye Exam 06/30/2024 06/30/2023 Depression Screening 08/24/2024 08/01/2024 Influenza Vaccine (#1) 2025 8, 07/29/2017, 05/09/2016, Additional history exists Falls Risk Assessment 08/01/2025 08/01/2024 Medicare Annual Wellness Visit 08/01/2025 08/01/2024 Diabetes: Blood Sugar Control Test (HGBA1C) 08/09/2025 02/07/2025, 09/09/2024, 03/01/2024, Additional history exists Diabetes: Annual Urine Albumin-Creatinine Ratio (uACR) 02/07/2026 02/07/2025, 09/12/2024, 02/01/2024 Diabetes: Annual GFR (Glomerular Filtration Rate) 02/07/2026 02/07/2025, 09/09/2024, 03/01/2024, Additional history exists Hypertension/CHF/CAD Annual BMP Blood Test 02/07/2026 02/07/2025, 09/09/2024, 03/01/2024, Additional history exists Cholesterol Screening (Lipid Panel) 02/07/2030 02/07/2025, 09/09/2024, 02/01/2024, Additional history exists Hepatitis C Screening Completed 06/29/2013 Pneumococcal Vaccine: [...] Procedure Name Priority Date/Time Associated Diagnosis Comments MG MAMMO DIGITAL SCREENING W WOO BILAT Routine 03/02/2025 4:15 PM EDT Encounter for screening mammogram for breast cancer THYROID STIMULATING HORMONE WITH REFLEX TO FREE T4 AND FREE T3 Routine 02/07/2025 7:35 AM EDT Hypothyroidism, unspecified type Type II or unspecified type diabetes mellitus with neurological manifestations, not stated as uncontrolled(250.60) ([facility] V24, [facility] V28) LIPID PANEL WITH REFLEX TO DIRECT LDL Routine 02/07/2025 7:35 AM EDT Stage 3a chronic kidney disease (CKD) ([facility] V24, [facility] V28) Primary hypertension Pure hypercholesterolemia COMPREHENSIVE METABOLIC PANEL Routine 02/07/2025 7:35 AM EDT Hypothyroidism, unspecified type Type II or unspecified type diabetes mellitus with neurological manifestations, not stated as uncontrolled(250.60) ([facility] V24, [facility] V28) Stage 3a chronic kidney disease (CKD) ([facility] V24, [facility] V28) Primary hypertension Encounter for long-term (current) use of medications Pure hypercholesterolemia HEMOGLOBIN A1C Routine 02/07/2025 7:35 AM EDT Type II or unspecified type diabetes mellitus with neurological manifestations, not stated as uncontrolled(250.60) ([facility] V24, [facility] V28) Stage 3a chronic kidney disease (CKD) ([facility] V24, [facility] V28) MICROALBUMIN CREATININE URINE RATIO Routine 02/07/2025 7:35 AM EDT Hypothyroidism, unspecified type Type II or unspecified type diabetes mellitus with neurological manifestations, not stated as uncontrolled(250.60) ([facility] V24, [facility] V28) Stage 3a chronic kidney disease (CKD) ([facility] V24, [facility] V28) Primary hypertension Encounter for long-term (current) use of medications Pure hypercholesterolemia DIABETES EYE EXAM Routine 06/30/2023 COLONOSCOPY Routine 03/27/2017 HEPATITIS C SCREENING Routine 06/29/2013 from Last 3 Months or Most Recently Relevant to Health Maintenance Results * MG Mammo Digital Screening w Woo bilat (03/02/2025 4:15 PM EDT) Anatomical Region Laterality Modality Breast Bilateral Mammography 03/06/2025 1:53 PM EDT Impressions 03/06/2025 1:53 PM EDT No mammographic evidence of malignancy. BREAST DENSITY: B - There are scattered areas of fibroglandular density. BI-RADS CATEGORY: 1 - NEGATIVE RECOMMENDATION: Screening bilateral mammogram is recommended in 1 year. MAMMO LOCATION: [place] [facility], [address] [place] [address], [id number], . -------- FINAL REPORT -------- Dictated By: Kellee Coto Dictated Date: 03/06/2025 13:53 ET Assigned Physician: Kellee Coto Reviewed and Electronically Signed By: Kellee Coto Signed Date: 03/06/2025 13:53 ET Workstation ID: [id number] Transcribed By: Self Edit Transcribed Date: 03/06/2025 13:53 ET Narrative 03/06/2025 1:53 PM EDT EXAM: Screening Mammogram CLINICAL: 79 years old, Female, routine annual exam. COMPARISON: 12/14/2023 and as far back as 04/24/2020 TECHNIQUE: Bilateral MLO and CC views were obtained digitally with 3-D mammogram (digital breast tomosynthesis). Computer-aided detection was utilized in evaluation of this exam (CAD). FINDINGS: No new suspicious mass, architectural distortion, or suspicious calcifications. Procedure Note Kellee Coto MD - 03/06/2025 EXAM: Screening Mammogram CLINICAL: 79 years old, Female, routine annual exam. COMPARISON: 12/14/2023 and as far back as 04/24/2020 TECHNIQUE: Bilateral MLO and CC views were obtained digitally with 3-Dmammogram (digital breast tomosynthesis). Computer-aided detection wasutilized in evaluation of this exam (CAD). FINDINGS: No new suspicious mass, architectural distortion, or suspiciouscalcifications. IMPRESSION: No mammographic evidence of malignancy. BREAST DENSITY: B - There are scattered areas of fibroglandular density. BI-RADS CATEGORY: 1 - NEGATIVE RECOMMENDATION: Screening bilateral mammogram is recommended in 1 year. MAMMO LOCATION: [place] [facility], [address] [place] [address], [address], . -------- FINAL REPORT -------- Dictated By: Kellee Coto Dictated Date: 03/06/2025 13:53 ET Assigned Physician: Kellee Coto Reviewed and Electronically Signed By: Kellee Coto Signed Date: 03/06/2025 13:53 ET Workstation ID: [id number] Transcribed By: Self Edit Transcribed Date: 03/06/2025 13:53 ET us Davonte Reid MD IMG BI PROCEDURES Final Result * Thyroid stimulating hormone with reflex to free t4 and free t3 (02/07/2025 7:35 AM EDT) [facility] TSH 3.84 0.40 - 4.00 mcIU/mL LAB CHEMISTRY METHOD 02/07/2025 12:32 PM EDT [facility] Blood Venous blood specimen / Unknown Venipuncture / Unknown 02/07/2025 7:35 AM EDT 02/07/2025 7:35 AM EDT us Davonte Reid MD LAB BLOOD ORDERABLES Final Resu lt [facility] [address] [place] [address], [place] [phone] * (ABNORMAL) Lipid panel with reflex to direct LDL (02/07/2025 7:35 AM EDT) [facility] Cholesterol 160 0 - 200 mg/dL LAB CHEMISTRY METHOD 02/07/2025 11:07 AM EDT [facility] Triglycerides 192(H) 0 - 150 mg/dL LAB CHEMISTRY METHOD 02/07/2025 11:07 AM EDT [facility] HDL 40 >=40 mg/dL LAB CHEMISTRY METHOD 02/07/2025 11:07 AM EDT [facility] LDL Calculated 82 0 - 100 mg/dL LAB CHEMISTRY METHOD 02/07/2025 11:07 AM EDT [facility] VLDL Cholesterol Miller 38.4 mg/dL LAB CHEMISTRY METHOD 02/07/2025 11:07 AM EDT [facility] Non HDL Chol. (LDL+VLDL) 120 <145 mg/dL LAB CHEMISTRY METHOD 02/07/2025 11:07 AM EDT [facility] Chol/HDL Ratio 4.0 0.0 - 4.4 LAB CHEMISTRY METHOD 02/07/2025 11:07 AM EDT [facility] Blood Venous blood specimen / Unknown Venipuncture / Unknown 02/07/2025 7:35 AM EDT 02/07/2025 7:35 AM EDT us Davonte Reid MD LAB BLOOD ORDERABLES Final Resu lt Performing Organization Address City/[facility]/ZIP Co de Phone Number [facility] [address] [place] [address], [place] [phone] * Microalbumin creatinine urine ratio (02/07/2025 7:35 AM EDT) Creatinine, Urine 35.0 mg/dL LAB CHEMISTRY METHOD 02/07/2025 11:37 AM EDT [facility] Microalb, Ur <5.0 0.0 - 29.0 mg/L LAB CHEMISTRY METHOD 02/07/2025 11:37 AM EDT [facility] Microalb/Creat Ratio <14 <30 mg/g creat LAB CHEMISTRY METHOD 02/07/2025 11:37 AM EDT [facility] Urine Urine specimen obtained by clean catch procedure / Unknown Non-blood Collection / Unknown 02/07/2025 7:35 AM EDT 02/07/2025 7:35 AM EDT us Davonte Reid MD LAB URINE ORDERABLES Final Resu lt [facility] [address] [place] [address], [place] [phone] * (ABNORMAL) Hemoglobin A1c (02/07/2025 7:35 AM EDT) Hemoglobin A1C 9.5(H) <6.5 % LAB CHEMISTRY METHOD 02/07/2025 11:32 AM [facility] Mean Bld Glu Estim. 226 mg/dL LAB CHEMISTRY METHOD 02/07/2025 11:32 AM [facility] Blood Venous blood specimen / Unknown Venipuncture / Unknown 02/07/2025 7:35 AM EDT 02/07/2025 7:35 AM EDT us Davonte Reid MD LAB BLOOD ORDERABLES Final Resu lt [facility] [address] [place] [address], * (ABNORMAL) Comprehensive metabolic panel (02/07/2025 7:35 AM EDT) Sodium 131(L) 133 - 145 mmol/L LAB CHEMISTRY METHOD 02/07/2025 11:07 AM [facility] Potassium 4.1 3.5 - 5.5 mmol/L LAB CHEMISTRY METHOD 02/07/2025 11:07 AM [facility] Chloride 98 96 - 110 mmol/L LAB CHEMISTRY METHOD 02/07/2025 11:07 AM [facility] CO2 23 21 - 32 mmol/L LAB CHEMISTRY METHOD 02/07/2025 11:07 AM [facility] Anion Gap 10 3 - 11 LAB CHEMISTRY METHOD 02/07/2025 11:07 AM [facility] Glucose 197(H) 70 - 100 mg/dL LAB CHEMISTRY METHOD 02/07/2025 11:07 AM [facility] BUN 16 5 - 25 mg/dL LAB CHEMISTRY METHOD 02/07/2025 11:07 AM [facility] Creatinine 1.21(H) 0.50 - 1.10 mg/dL LAB CHEMISTRY METHOD 02/07/2025 11:07 AM [facility] eGFR 46(L) >=60 mL/min/1. 73m2 LAB CHEMISTRY METHOD 02/07/2025 11:07 AM [facility] Comment:Calculation based on the Chronic Kidney Disease Epidemiology Collaboration (CKD-EPI) equation refit without adjustment for race. BUN/Creatinine Ratio 13.2 LAB CHEMISTRY METHOD 02/07/2025 11:07 AM [facility] Calcium 9.4 8.5 - 10.5 mg/dL LAB CHEMISTRY METHOD 02/07/2025 11:07 AM [facility] AST (SGOT) 25 10 - 42 unit/L LAB CHEMISTRY METHOD 02/07/2025 11:07 AM [facility] ALT (SGPT) 32 10 - 60 unit/L LAB CHEMISTRY METHOD 02/07/2025 11:07 AM [facility] Alkaline Phosphatase 79 42 - 121 unit/L LAB CHEMISTRY METHOD 02/07/2025 11:07 AM [facility] Total Protein 7.5 6.0 - 8.0 g/dL LAB CHEMISTRY METHOD 02/07/2025 11:07 AM [facility] Albumin 3.8 3.2 - 5.0 g/dL LAB CHEMISTRY METHOD 02/07/2025 11:07 AM [facility] Total Bilirubin 0.5 0.0 - 1.4 mg/dL LAB CHEMISTRY METHOD 02/07/2025 11:07 AM [facility] Blood Venous blood specimen / Unknown Venipuncture / Unknown 02/07/2025 7:35 AM EDT 02/07/2025 7:35 AM EDT us Davonte Reid MD LAB BLOOD ORDERABLES Final Resu lt [facility] [address] [place] [address], * Diabetes Eye Exam (06/30/2023) [facility] Diabetes: Annual Retina Eye Exam Abstracted Historical Provider HEALTH MAINTENANCE Final Result * Colonoscopy (03/27/2017) [facility] Colonoscopy No interpretation , abstracted Anatomical Region Laterality Modality Other Historical Provider HEALTH MAINTENANCE Final Result * Hepatitis C Screening (06/29/2013) Pathologist [facility] Hepatitis C Screening Abstracted [facility] Provider HEALTH MAINTENANCE Final Result from Last 3 Months or Most Recently Relevant to Health Maintenance Insurance [employer] MED[employer] Member Subscriber Plan / Payer (Ef fective 2013-Present) Name:Veronica Arroyo Relation to Subscriber:Self Name:Veronica Arroyo I Payer ID:[id number] Group ID:[id number] Type:Not on file Address: [place] [address] [place] [id number] Care Teams Forensic Dna Analyst Relationship Specialty Start Date End Date Davonte Reid MD [address] [place] [id number] PCP - General Internal Medicine 03/10/19
--- OUTSIDE RECORDS SUMMARY | 2025-03-22 14:56 | XMS_ITS | Patient Health Record ---
Author Organization [facility] Address [address] [place] [address] Care Team Providers Care Child And Family Counselor Name Role Phone Davonte Reid MD Primary Care Provider Jake Wilcox [phone] Allergies Allergen (clinical drug ingredient) Drug/Non Drug [...] Problem Status W/U Status Risk Notes Problem 472019095 Colon cancer screening (Z12.11) Active confirmed Problem Diverticular disease of colon (596096032) Diverticulosis of large intestine without perforation or abscess without bleeding (K57.30) Active confirmed Problem [id number] Preprocedural examination (Z01.818) Active confirmed Plan Of Treatment Future Test Test Name Order Date COLONOSCOPY 01/20/2023 Insurance Providers Payer Name Payer Address Payer Phone Subscriber Number Group Number Insured Name Patient Relationship to Insured Coverage Start Date Coverage End Date [facility] [address] Attn [place] [id number] MIGUELITO NANCE Self - patient is the insured Medical (General) History Medical History History ICD Code NIDDM hypertension hypercholesterolemia emphysema Hypothyroidism Negative screening colonoscopy in 2010 Denies NM,CVA,renal disease Surgical History Surgery Date(Month/Year)
== END 2025-03-22 15:18 | disposition home or self-care (01) ==
LOC: HO.HOS 14:15
PROVIDERS: PCP Internal Medicine; Visit Provider Physician Assistant
DX: M75.81 Other shoulder lesions, right shoulder (principal); E11.9 Type 2 diabetes mellitus without complications
CPT/HCPCS: 20610; 99213

== ENCOUNTER → 2025-03-22 14:14 | Outpatient (BNVA) | payer OTHER, SELFPAY | PROVIDERS: PCP Internal Medicine; Visit Provider Physician Assistant | DX: M25.511 Pain in right shoulder (principal); M75.81 Other shoulder lesions, right shoulder | CPT/HCPCS: 20610; 99212; J1010; J2003 ==